=== PATIENT | female | born 1950 | race Hispanic/Latino ===

== ENCOUNTER 2019-11-12 16:18 | Inpatient (IN) | payer MEDICARE, OTHER ==
[~2019-11-12] VITALS: Ht 132.1 cm; Wt 81.6 kg
--- NOTE | 2019-11-12 17:44 | Emergency Department Note ---
History of Present Illnes History of Present Illness Chief Complaint: COVID PUI History of Present Illness This is a 69 year old female arrived to the ED with complaints of acute respi distress, pt complaining of shortness of breath. Chief Complaint Comment PATIENT SENT FROM [facility] ESPIRATORY DISTRESS SINCE YESTERDAY. PATIENT DISCHARGED FROM [facility] AND WAS NOT ANY BETTER OVER NIGHT. DOCTOR REQUESTED SHE BE SENT HERE. PATIENT NO ALERT, ONLY MOANS. BILATERAL ARM SWELLING. COARSE CRACKLES/RALES Historian: [employer]/[facility], Medical Record Arrival Mode: KASH MEDIC 1 Severity: mild Onset quality: gradual Duration (how long): day(s) Timing of current episode: constant Progression: worsening Relieving factors: none Exacerbating factors: none Past Medical/Family History Physician Review I have reviewed the patient's past medical and family history. Any updates have been documented here. Past Medical History Recent Fever: No Clinical Suspicion of Infectio: No New/Unexplained Change in Ment: No Past Medical History: Hypertension, Diabetes, CVA, Depression, GERD, Hyperlipedemia Other Medical History: DEMENTIA ALZHEIMER CONVULSIONS CONSTIPATION UTI'S ESOPHAGITIS PNEUMONIA METABOLIC ENCEPHALAPATHY EPILEPSY Other Surgery: PEG Physical Exam Related Data Allergies: Coded Allergies: No Known Allergies (Unverified , 11/12/19) Triage Vital Signs Vital Signs Date Time Temp Pulse Resp B/P (MAP) Pulse Ox O2 Delivery O2 Flow Rate FiO2 11/12/19 16:33 98.2 73 18 144/74 100 Nasal Cannula 2.0 Vital signs reviewed: Yes Physical Exam CONSTITUTIONAL Constitutional: Present ill appearing HENT HENT: Present normocephalic, Present atraumatic, Present oropharynx clear/moist, Present nose normal HENT L/R: Present left ext ear normal, Present right ext ear normal EYES Eyes: Reports PERRL, Reports conjunctivae normal NECK Neck: Present ROM normal PULMONARY Pulmonary: Present effort normal, Present breath sounds normal CARDIOVASCULAR Cardiovascular: Present regular rhythm, Present heart sounds normal, Present capillary refill normal, Present normal rate GASTROINTESTINAL Abdominal: Present soft, Present nontender, Present bowel sounds normal GENITOURINARY Genitourinary: Present exam deferred SKIN Skin: Present warm, Present dry MUSCULOSKELETAL Musculoskeletal: Present ROM normal NEUROLOGICAL Neurological: Present alert, Present no gross motor or sensory deficits PSYCHOLOGICAL Psychological: Present mood/affect normal, Present judgement normal Results Laboratory Lab results reviewed: Yes Imaging Imaging results reviewed: Yes Assessment & Plan Medical Decision Making MDM 69 yo F arrived to the ED in respiratory distress, lab work and imaging pending. Sign out given to Dr. Chris to follow up labs, imaging and dispo patient. Assessment & Plan Final Impression: (1) Acute respiratory distress Depart Disposition: ADMITTED Last Vital Signs Date Time Temp Pulse Resp B/P (MAP) Pulse Ox O2 Delivery O2 Flow Rate FiO2 11/12/19 16:33 98.2 73 18 144/74 100 Nasal Cannula 2.0 FRANKLIN JOHNSON, Nov 12, 2019 17:44
[2019-11-12 17:54] LABS: BASOPHILS % 0.3 % (0.0-1.0); EOSINOPHILS # (AUTO) 0.1 (0.0-0.4); EOSINOPHILS % 0.7 % (0.0-6.0); HEMATOCRIT 34.7 % (34.2-44.1); HEMOGLOBIN 10.4 g/dL (12.0-16.0); LYMPHOCYTES % 15.7 % (18.0-39.1); MEAN CORPUSCULAR HEMOGLOBIN 28.6 pg (28-32); MEAN CORPUSCULAR VOLUME 95.3 fL (81-99); MONOCYTES # (AUTO) 1.5 (0.2-0.8); MONOCYTES % 12.1 % (4.4-11.3); NEUTROPHILS # (AUTO) 8.8 (2.1-6.9); NEUTROPHILS % 69.6 % (38.7-80.0); PLATELET COUNT 309 x10e3/uL (140-360); RED BLOOD COUNT 3.64 x10e6/uL (3.6-5.1); RED CELL DISTRIBUTION WIDTH 17.5 % (11.7-14.4)
[2019-11-12] MEDS ORDERED: PIPER-TAZ 3.375 GM 50 ML IV SCH (18:00)
[2019-11-12 18:12] LABS: ALANINE AMINOTRANSFERASE 32 IU/L (0-55); ALBUMIN 2.9 g/dL (3.5-5.0); ALBUMIN/GLOBULIN RATIO 0.8 (0.8-2.0); ALKALINE PHOSPHATASE 88 IU/L (40-150); BLOOD UREA NITROGEN 14 mg/dL (7-26); BUN/CREATININE RATIO 21 (6-25); CALCIUM 8.9 mg/dL (8.4-10.2); CARBON DIOXIDE 29 mmol/L (22-29); CHLORIDE 104 mmol/L (98-107); CREATINE KINASE 69 IU/L (29-168); CREATININE, SERUM 0.66 mg/dL (0.57-1.11); EST GLOMERULAR FILTRATION RATE > 60 ML/MIN (60-); GLUCOSE 325 mg/dL (74-118); SODIUM 145 mmol/L (136-145)
--- NOTE | 2019-11-12 18:17 | Diagnostic Imaging Report ---
EXAMINATION: CHEST SINGLE (PORTABLE) INDICATION: respiratory distress COMPARISON: None FINDINGS: AP view TUBES and LINES: None. . LUNGS/PLEURA: Lungs are not well inflated. There is elevation of the right hemidiaphragm. There is bronchovascular crowding which could be exaggerated due to low lung volumes. There is no pleural effusion or pneumothorax. HEART AND MEDIASTINUM: The cardiomediastinal silhouette is unremarkable. BONES AND SOFT TISSUES: No acute osseous lesion. Soft tissues are unremarkable. UPPER ABDOMEN: No free air under the diaphragm. IMPRESSION: Lungs are poorly inflated. There is bronchovascular crowding which could be exaggerated due to low lung volumes. Recommend follow-up chest x-ray with adequate inspiration to exclude underlying pneumonia or pulmonary edema. Signed by: Leland Santana MD on 11/12/2019 6:13 PM
[2019-11-12 19:18] LABS: BILIRUBIN,URINE NEGATIVE (NEGATIVE); CLARITY,URINE SL CLOUDY (CLEAR); COLOR,URINE YELLOW (YELLOW); KETONES,URINE NEGATIVE (NEGATIVE); LEUKOCYTE ESTERASE ,URINE NEGATIVE (NEGATIVE); NITRITE,URINE NEGATIVE (NEGATIVE); PROTEIN,URINE DIPSTICK TRACE (NEGATIVE); URINE UROBILINOGEN 0.2 mg/dL (0.2 - 1)
[2019-11-12 19:27] LABS: BACTERIA,URINE MANY /HPF; EPITHELIAL CELLS,URINE FEW /LPF; RBC,URINE 0-5 /HPF (0-5); WBC,URINE (MAN) 0-5 /HPF (0-5)
[2019-11-12] MEDS ORDERED: ASPIRIN 81 MG CHEW TAB PO ONE (20:15)
--- OUTSIDE RECORDS SUMMARY | 2019-11-12 20:16 | XMS REPORT | Continuity of Care Document ---
Author Author [facility] t Organization [facility] Address [address] [place] [place] [address] Phone Unavailable Care Team Providers Care Stock Preparer Name Role Phone ADEN SABILLON Unavailable Payers Payer Name Policy Type Policy Number Effective Date Expiration Date S ource Problems This patient has no known problems. Allergies, Adverse Reactions, Alerts Allergy Name Allergy Type Status Severity Reaction(s) Onset Date Inacti ve Date Treating Clinician Comments Source No Known Allergies DA Active U 2016-09-14 00:00:00 [facility] Medications This patient has no known medications. Procedures This patient has no known procedures. Results Test Description Test Time Test Comments Results Result Comments Source CHEST SINGLE (PORTABLE) 2019-11-12 18:11:00 [facility] [address], [place] [address] Patient Name: AROLDO BERRIOS MR #: [id number] : 1950 Age/Sex: 69/F Req #: [id number] Adm Physician: Ordered by: FRANKLIN JOHNSON DO Report #: [id number] Location: ER Room/Bed: Procedure: [id number] DX/CHEST SINGLE (PORTABLE) Exam Date: 11/12/19 Exam Time: 1640 REPORT STATUS: Signed EXAMINATION: CHEST SINGLE (PORTABLE) INDICATION: respiratory distress COMPARISON: None FINDINGS: AP view TUBES and LINES: None. . LUNGS/PLEURA: Lungs are not well inflated. There is elevation of the right he midiaphragm. There is bronchovascular crowding which could be exaggerated due to low lung volumes. There is no pleural effusion or pneumothorax. HEART AND MEDIASTINUM: The cardiomediastinal silhouette is unremarkable. BONES AND SOFT TISSUES: No acute osseous lesion. Soft tissues are unremarkable. UPPER ABDOMEN: No free air under the diaphragm. IMPRESSION: Lungs are poorly inflated. There is bronchovascular crowding which could be exaggerated due to low lung volumes. Recommend follow-up chest x-ray with adequate inspiration to exclude underlying pneumonia or pulmonary edema. Signed by: Leland Langley MD on 11/12/2019 6:13 PM Dictated By: LELAND LANGLEY MD 12 Transcribed By: NASRIN on 11/12/191812 COPY TO: FRANKLIN JOHNSON DO GLUBED 2019-11-11 20:34:00 Test Item GLUBED (test code = GLUBED) 148 mg/dL 74-106 H Performed by certified oil refinery operator at [facility] [place] [id number] 19:02:00* Test Item Value Reference Range Interpretation Comments GLUBED (test code = GLUBED) 117 mg/dL 74-106 H Performed by certified oil refinery operator at [facility] [place] [id number] 12:50:00* Test Item Value Reference Range Interpretation Comments GLUBED (test code = GLUBED) 224 mg/dL 74-106 H Performed by certified oil refinery operator at [facility] [place] [id number] 05:14:00* Test Item Value Reference Range Interpretation Comments GLUBED (test code = GLUBED) 252 mg/dL 74-106 H Performed by certified oil refinery operator at [facility] [place] BASIC METABOLIC [id number] 04:57:00* Test Item Value Reference Range Interpretation Comments SODIUM (test code = NA) 146 mmol/L 136-145 H POTASSIUM (test code = K) 3.5 mmol/L 3.5-5.1 N CHLORIDE (test code = CL) 108.0 mmol/L 98-107 H CARBON DIOXIDE (test code = CO2) 32.0 mmol/L 21-32 N ANION GAP (test code = GAP) 9.5 10-20 L GLUCOSE (test code = GLU) 263 mg/dL 74-106 H BLOOD UREA NITROGEN (test code = BUN) 20 mg/dL 7-18 H GLOMERULAR FILTRATION RATE (test code = GFR) > 60 mL/min >=60 Estimated GFR by using Modified MDRD formula.Chronic kidney disease is defined as either kidney damageor GFR <60 mL/min/1.73 m2 for >3 months. CREATININE (test code = CREAT) 0.40 mg/dL 0.55-1.02 L Note change in reference range due to change in reagent. BUN/CREATININE RATIO (test code = BUN/CREA) 47.6 10-20 H CALCIUM (test code = CA) 8.6 mg/dL 8.5-10.1 N [id number] 04:57:00* Test Item Value Reference Range Interpretation Comments PHOSPHORUS (test code = PHOS) 2.5 mg/dL 2.5-4.9 N [id number] 04:57:00* Test Item Value Reference Range Interpretation Comments MAGNESIUM (test code = MAG) 2.2 mg/dL 1.8-2.4 N CALCIUM [id number] 04:57:00* Test Item Value Reference Range Interpretation Comments CALCIUM IONIZED (test code = AVTAR) 1.31 mmol/L 1.12-1.32 N [id number] 04:56:00* Test Item Value Reference Range Interpretation Comments PHOSPHORUS (test code = PHOS) mg/dL 2.5-4.9 [id number] 04:56:00* Test Item Value Reference Range Interpretation Comments MAGNESIUM (test code = MAG) mg/dL 1.8-2.4 CALCIUM [id number] 04:56:00* Test Item Value Reference Range Interpretation Comments CALCIUM IONIZED (test code = AVTAR) 1.31 mmol/L 1.12-1.32 N CBC W/O [id number] 04:24:00* Test Item Value Reference Range Interpretation Comments WHITE BLOOD CELL (test code = WBC) 10.4 K/mm3 4.5-12.5 N RED BLOOD CELL (test code = RBC) 3.26 mill/mm3 3.7-5.2 L HEMOGLOBIN (test code = HGB) 9.5 gram/dL 11.5-15.5 L HEMATOCRIT (test code = HCT) 31.9 % 36.0-46.0 L MEAN CELL VOLUME (test code = MCV) 97.9 fL 80-98 N MEAN CELL HGB (test code = MCH) 29.1 picogram 27.0-33.0 N MEAN CELL HGB CONCETRATION (test code = MCHC) 29.8 gram/dL 33.0-36. 0 L RED CELL DISTRIBUTION WIDTH (test code = RDW) 17.5 % 11.6-16. 2 H PLATELET COUNT (test code = PLT) 306 K/mm3 150-450 N MEAN PLATELET VOLUME (test code = MPV) 11.2 fL 6.7-11.0 H CBC W/O [id number] 04:22:00* Test Item Value Reference Range Interpretation Comments WHITE BLOOD CELL (test code = WBC) K/mm3 4.5-12.5 RED BLOOD CELL (test code = RBC) mill/mm3 3.7-5.2 HEMOGLOBIN (test code = HGB) gram/dL 11.5-15.5 HEMATOCRIT (test code = HCT) % 36.0-46.0 MEAN CELL VOLUME (test code = MCV) fL 80-98 MEAN CELL HGB (test code = MCH) picogram 27.0-33.0 MEAN CELL HGB CONCETRATION (test code = MCHC) gram/dL 33.0-36. 0 RED CELL DISTRIBUTION WIDTH (test code = RDW) % 11.6-16. 2 PLATELET COUNT (test code = PLT) 306 K/mm3 150-450 N MEAN PLATELET VOLUME (test code = MPV) fL 6.7-11.0 [id number] 23:20:00* Test Item Value Reference Range Interpretation Comments GLUBED (test code = GLUBED) 239 mg/dL 74-106 H Performed by certified oil refinery operator at [facility] [place] [id number] 23:12:00* Test Item Value Reference Range Interpretation Comments GLUBED (test code = GLUBED) 272 mg/dL 74-106 H Performed by certified oil refinery operator at [facility] [place] [id number] 17:08:00* Test Item Value Reference Range Interpretation Comments GLUBED (test code = GLUBED) 130 mg/dL 74-106 H Performed by certified oil refinery operator at [facility] [place] [id number] 10:58:00* Test Item Value Reference Range Interpretation Comments GLUBED (test code = GLUBED) 162 mg/dL 74-106 H Performed by certified oil refinery operator at [facility] [place] [id number] 07:44:00* Test Item Value Reference Range Interpretation Comments GLUBED (test code = GLUBED) 203 mg/dL 74-106 H Performed by certified oil refinery operator at [facility] [place] - XR CHEST 1 [id number] 07:10:00 FAX: Gabby Weiss NP [place]: B St: ADM FAX: Asmita Walsh MD FAX: Nelida Peck [phone] Name: AROLDO BERRIOS [facility] : 1950 Age/S: 69/F [address] [facility] Unit #: [id number] Loc: [address] [place] [address] Phys: Gabby Weiss RESUME WRITER Acct: [id number] Dis Date: Status: ADM IN ONE #: [phone] Exam Date: 11/10/2019 0120 FAX #: [phone] Reason: Acute Respiratory Failure EXAMS: CPT CODE: [id number] XR CHEST 1 V 85047 CLINICAL HISTO RY: Acute Respiratory Failure TECHNIQUE: AP chest x-ray COMPARISON: Previous day. IMPRESSION: Impr patricia aeration of the right lower lobe with slight worsening of the left lower lobe. Normal heart size. Thoracic aortic vascular calcification. I nterval removal of right central venous catheter. Shifting are as of atelectasis otherwise unchanged exam. LOCATION: [facility] at 0710 Reported and signed by: Isidro Fu M.D. CC: Gabby Weiss NP; Asmita Lew MD; Tamara Ness MD Technologist: Nissa Chakraborty [facility] crd Date/Time/By: 11/10/2019 (0710) : By: [email or web address] Orig Print D/T: S: 11/10/2019 (0778) PAGE 1 Signed Report CBC W/AUTO [id number] 06:36:00* Test Item Value Reference Range Interpretation Comments WHITE BLOOD CELL (test code = WBC) 13.2 K/mm3 4.5-12.5 H RED BLOOD CELL (test code = RBC) 3.63 mill/mm3 3.7-5.2 L HEMOGLOBIN (test code = HGB) 10.4 gram/dL 11.5-15.5 L HEMATOCRIT (test code = HCT) 36.8 % 36.0-46.0 N MEAN CELL VOLUME (test code = MCV) 101.4 fL 80-98 H MEAN CELL HGB (test code = MCH) 28.7 picogram 27.0-33.0 N MEAN CELL HGB CONCETRATION (test code = MCHC) 28.3 gram/dL 33.0-36. 0 L RED CELL DISTRIBUTION WIDTH (test code = RDW) 17.8 % 11.6-16. 2 H RED CELL DISTRIBUTION WIDTH SD (test code = RDW-SD) 65.5 fL 37 .0-51.0 H PLATELET COUNT (test code = PLT) 300 K/mm3 150-450 RESULT VERIFIED BY REPEAT ANALYSIS MEAN PLATELET VOLUME (test code = MPV) 10.5 fL 6.7-11.0 N NEUTROPHIL % (test code = NT%) 68.4 % 39.0-69.0 N IMMATURE GRANULOCYTE % (test code = IG%) 0.6 % 0.0-5.0 N LYMPHOCYTE % (test code = LY%) 18.7 % 25.0-55.0 L MONOCYTE % (test code = MO%) 10.4 % 0.0-10.0 H EOSINOPHIL % (test code = EO%) 1.4 % 0.0-5.0 N BASOPHIL % (test code = BA%) 0.5 % 0.0-1.0 N NUCLEATED RBC % (test code = NRBC%) 0.0 % 0-0 N NEUTROPHIL # (test code = NT#) 9.03 K/mm3 1.8-7.7 H IMMATURE GRANULOCYTE # (test code = IG#) 0.08 x10 3/uL 0-0.03 H LYMPHOCYTE # (test code = LY#) 2.47 K/mm3 1.0-5.0 N MONOCYTE # (test code = MO#) 1.38 K/mm3 0-0.8 H EOSINOPHIL # (test code = EO#) 0.19 K/mm3 0.0-0.5 N BASOPHIL # (test code = BA#) 0.07 K/mm3 0.0-0.2 N NUCLEATED RBC # (test code = NRBC#) 0.00 K/mm3 0.0-0.1 N MANUAL DIFF REQUIRED (test code = MDIFF) NO, ONLY SCAN NEEDED DIFFERENTIAL [id number] 06:36:00* Test Item Value Reference Range Interpretation Comments STAIN ACCEPTABILITY (test code = STN ACCEPTABLE) STAIN ACCEPTABLE HYPOCHROMIA (test code = HYPO) 1+ PLATELET ESTIMATE (test code = PLTEST) ADEQUATE PLATELET MORPHOLOGY (test code = PLTMORPH) NORMAL [id number] 06:16:00* Test Item Value Reference Range Interpretation Comments GLUBED (test code = GLUBED) 206 mg/dL 74-106 H Performed by certified oil refinery operator at [facility] [place] COMPREHENSIVE METABOLIC [id number] 05:57:00* Test Item Value Reference Range Interpretation Comments SODIUM (test code = NA) 150 mmol/L 136-145 H POTASSIUM (test code = K) 3.7 mmol/L 3.5-5.1 N CHLORIDE (test code = CL) 113.0 mmol/L 98-107 H CARBON DIOXIDE (test code = CO2) 31.0 mmol/L 21-32 N ANION GAP (test code = GAP) 9.7 10-20 L GLUCOSE (test code = GLU) 279 mg/dL 74-106 H BLOOD UREA NITROGEN (test code = BUN) 17 mg/dL 7-18 N GLOMERULAR FILTRATION RATE (test code = GFR) > 60 mL/min >=60 Estimated GFR by using Modified MDRD formula.Chronic kidney disease is defined as either kidney damageor GFR <60 mL/min/1.73 m2 for >3 months. CREATININE (test code = CREAT) 0.70 mg/dL 0.55-1.02 N Note change in reference range due to change in reagent. BUN/CREATININE RATIO (test code = BUN/CREA) 25.6 10-20 H TOTAL PROTEIN (test code = PROT) 5.7 gram/dL 6.4-8.2 L ALBUMIN (test code = ALB) 2.0 g/dL 3.4-5.0 L GLOBULIN (test code = GLOB) 3.7 gram/dL 2.7-4.2 N ALBUMIN/GLOBULIN RATIO (test code = A/G) 0.5 0.75-1.50 L CALCIUM (test code = CA) 8.7 mg/dL 8.5-10.1 N BILIRUBIN TOTAL (test code = BILT) 0.30 mg/dL 0.0-1.0 N SGOT/AST (test code = AST) 29 IUnit/L 15-37 N SGPT/ALT (test code = ALT) 29 IUnit/L 12-78 N ALKALINE PHOSPHATASE TOTAL (test code = ALKP) 98 IUnit/L 45-117 N Note change in reference range due to change in reagent. [id number] 05:57:00* Test Item Value Reference Range Interpretation Comments PHOSPHORUS (test code = PHOS) 2.7 mg/dL 2.5-4.9 N [id number] 05:57:00* Test Item Value Reference Range Interpretation Comments MAGNESIUM (test code = MAG) 2.4 mg/dL 1.8-2.4 N CALCIUM [id number] 05:57:00* Test Item Value Reference Range Interpretation Comments CALCIUM IONIZED (test code = AVTAR) 1.27 mmol/L 1.12-1.32 N COMPREHENSIVE METABOLIC [id number] 05:42:00* Test Item Value Reference Range Interpretation Comments SODIUM (test code = NA) 150 mmol/L 136-145 H POTASSIUM (test code = K) 3.7 mmol/L 3.5-5.1 N CHLORIDE (test code = CL) 113.0 mmol/L 98-107 H CARBON DIOXIDE (test code = CO2) mmol/L 21-32 ANION GAP (test code = GAP) 10-20 GLUCOSE (test code = GLU) mg/dL 74-106 BLOOD UREA NITROGEN (test code = BUN) mg/dL 7-18 GLOMERULAR FILTRATION RATE (test code = GFR) mL/min >=60 CREATININE (test code = CREAT) mg/dL 0.55-1.02 BUN/CREATININE RATIO (test code = BUN/CREA) 10-20 TOTAL PROTEIN (test code = PROT) gram/dL 6.4-8.2 ALBUMIN (test code = ALB) g/dL 3.4-5.0 GLOBULIN (test code = GLOB) gram/dL 2.7-4.2 ALBUMIN/GLOBULIN RATIO (test code = A/G) 0.75-1.50 CALCIUM (test code = CA) mg/dL 8.5-10.1 BILIRUBIN TOTAL (test code = BILT) mg/dL 0.0-1.0 SGOT/AST (test code = AST) IUnit/L 15-37 SGPT/ALT (test code = ALT) IUnit/L 12-78 ALKALINE PHOSPHATASE TOTAL (test code = ALKP) IUnit/L 45-117 [id number] 05:42:00* Test Item Value Reference Range Interpretation Comments PHOSPHORUS (test code = PHOS) mg/dL 2.5-4.9 [id number] 05:42:00* Test Item Value Reference Range Interpretation Comments MAGNESIUM (test code = MAG) mg/dL 1.8-2.4 CALCIUM [id number] 05:42:00* Test Item Value Reference Range Interpretation Comments CALCIUM IONIZED (test code = AVTAR) 1.27 mmol/L 1.12-1.32 N COMPREHENSIVE METABOLIC [id number] 05:36:00* Test Item Value Reference Range Interpretation Comments SODIUM (test code = NA) mmol/L 136-145 POTASSIUM (test code = K) mmol/L 3.5-5.1 CHLORIDE (test code = CL) mmol/L 98-107 CARBON DIOXIDE (test code = CO2) mmol/L 21-32 ANION GAP (test code = GAP) 10-20 GLUCOSE (test code = GLU) mg/dL 74-106 BLOOD UREA NITROGEN (test code = BUN) mg/dL 7-18 GLOMERULAR FILTRATION RATE (test code = GFR) mL/min >=60 CREATININE (test code = CREAT) mg/dL 0.55-1.02 BUN/CREATININE RATIO (test code = BUN/CREA) 10-20 TOTAL PROTEIN (test code = PROT) gram/dL 6.4-8.2 ALBUMIN (test code = ALB) g/dL 3.4-5.0 GLOBULIN (test code = GLOB) gram/dL 2.7-4.2 ALBUMIN/GLOBULIN RATIO (test code = A/G) 0.75-1.50 CALCIUM (test code = CA) mg/dL 8.5-10.1 BILIRUBIN TOTAL (test code = BILT) mg/dL 0.0-1.0 SGOT/AST (test code = AST) IUnit/L 15-37 SGPT/ALT (test code = ALT) IUnit/L 12-78 ALKALINE PHOSPHATASE TOTAL (test code = ALKP) IUnit/L 45-117 [id number] 05:36:00* Test Item Value Reference Range Interpretation Comments PHOSPHORUS (test code = PHOS) mg/dL 2.5-4.9 [id number] 05:36:00* Test Item Value Reference Range Interpretation Comments MAGNESIUM (test code = MAG) mg/dL 1.8-2.4 CALCIUM [id number] 05:36:00* Test Item Value Reference Range Interpretation Comments CALCIUM IONIZED (test code = AVTAR) 1.27 mmol/L 1.12-1.32 N CBC W/AUTO [id number] 05:01:00* Test Item Value Reference Range Interpretation Comments WHITE BLOOD CELL (test code = WBC) 13.2 K/mm3 4.5-12.5 H RED BLOOD CELL (test code = RBC) 3.63 mill/mm3 3.7-5.2 L HEMOGLOBIN (test code = HGB) 10.4 gram/dL 11.5-15.5 L HEMATOCRIT (test code = HCT) 36.8 % 36.0-46.0 N MEAN CELL VOLUME (test code = MCV) 101.4 fL 80-98 H MEAN CELL HGB (test code = MCH) 28.7 picogram 27.0-33.0 N MEAN CELL HGB CONCETRATION (test code = MCHC) 28.3 gram/dL 33.0-36. 0 L RED CELL DISTRIBUTION WIDTH (test code = RDW) 17.8 % 11.6-16. 2 H RED CELL DISTRIBUTION WIDTH SD (test code = RDW-SD) 65.5 fL 37 .0-51.0 H PLATELET COUNT (test code = PLT) 300 K/mm3 150-450 RESULT VERIFIED BY REPEAT ANALYSIS MEAN PLATELET VOLUME (test code = MPV) 10.5 fL 6.7-11.0 N NEUTROPHIL % (test code = NT%) 68.4 % 39.0-69.0 N IMMATURE GRANULOCYTE % (test code = IG%) 0.6 % 0.0-5.0 N LYMPHOCYTE % (test code = LY%) 18.7 % 25.0-55.0 L MONOCYTE % (test code = MO%) 10.4 % 0.0-10.0 H EOSINOPHIL % (test code = EO%) 1.4 % 0.0-5.0 N BASOPHIL % (test code = BA%) 0.5 % 0.0-1.0 N NUCLEATED RBC % (test code = NRBC%) 0.0 % 0-0 N NEUTROPHIL # (test code = NT#) 9.03 K/mm3 1.8-7.7 H IMMATURE GRANULOCYTE # (test code = IG#) 0.08 x10 3/uL 0-0.03 H LYMPHOCYTE # (test code = LY#) 2.47 K/mm3 1.0-5.0 N MONOCYTE # (test code = MO#) 1.38 K/mm3 0-0.8 H EOSINOPHIL # (test code = EO#) 0.19 K/mm3 0.0-0.5 N BASOPHIL # (test code = BA#) 0.07 K/mm3 0.0-0.2 N NUCLEATED RBC # (test code = NRBC#) 0.00 K/mm3 0.0-0.1 N MANUAL DIFF REQUIRED (test code = MDIFF) NO, ONLY SCAN NEEDED DIFFERENTIAL [id number] 05:01:00* Test Item Value Reference Range Interpretation Comments STAIN ACCEPTABILITY (test code = STN ACCEPTABLE) CABOT RINGS (test code = CAB) MORPHOLOGY COMMENT (test code = MOC) PLATELET ESTIMATE (test code = PLTEST) PLATELET MORPHOLOGY (test code = PLTMORPH) CBC W/AUTO [id number] 05:01:00* Test Item Value Reference Range Interpretation Comments WHITE BLOOD CELL (test code = WBC) 13.2 K/mm3 4.5-12.5 H RED BLOOD CELL (test code = RBC) 3.63 mill/mm3 3.7-5.2 L HEMOGLOBIN (test code = HGB) 10.4 gram/dL 11.5-15.5 L HEMATOCRIT (test code = HCT) 36.8 % 36.0-46.0 N MEAN CELL VOLUME (test code = MCV) 101.4 fL 80-98 H MEAN CELL HGB (test code = MCH) 28.7 picogram 27.0-33.0 N MEAN CELL HGB CONCETRATION (test code = MCHC) 28.3 gram/dL 33.0-36. 0 L RED CELL DISTRIBUTION WIDTH (test code = RDW) 17.8 % 11.6-16. 2 H RED CELL DISTRIBUTION WIDTH SD (test code = RDW-SD) 65.5 fL 37 .0-51.0 H PLATELET COUNT (test code = PLT) 300 K/mm3 150-450 RESULT VERIFIED BY REPEAT ANALYSIS MEAN PLATELET VOLUME (test code = MPV) 10.5 fL 6.7-11.0 N NEUTROPHIL % (test code = NT%) 68.4 % 39.0-69.0 N IMMATURE GRANULOCYTE % (test code = IG%) 0.6 % 0.0-5.0 N LYMPHOCYTE % (test code = LY%) 18.7 % 25.0-55.0 L MONOCYTE % (test code = MO%) 10.4 % 0.0-10.0 H EOSINOPHIL % (test code = EO%) 1.4 % 0.0-5.0 N BASOPHIL % (test code = BA%) 0.5 % 0.0-1.0 N NUCLEATED RBC % (test code = NRBC%) 0.0 % 0-0 N NEUTROPHIL # (test code = NT#) 9.03 K/mm3 1.8-7.7 H IMMATURE GRANULOCYTE # (test code = IG#) 0.08 x10 3/uL 0-0.03 H LYMPHOCYTE # (test code = LY#) 2.47 K/mm3 1.0-5.0 N MONOCYTE # (test code = MO#) 1.38 K/mm3 0-0.8 H EOSINOPHIL # (test code = EO#) 0.19 K/mm3 0.0-0.5 N BASOPHIL # (test code = BA#) 0.07 K/mm3 0.0-0.2 N NUCLEATED RBC # (test code = NRBC#) 0.00 K/mm3 0.0-0.1 N MANUAL DIFF REQUIRED (test code = MDIFF) NO, ONLY SCAN NEEDED DIFFERENTIAL [id number] 05:01:00* Test Item Value Reference Range Interpretation Comments STAIN ACCEPTABILITY (test code = STN ACCEPTABLE) CABOT RINGS (test code = CAB) MORPHOLOGY COMMENT (test code = MOC) PLATELET ESTIMATE (test code = PLTEST) PLATELET MORPHOLOGY (test code = PLTMORPH) CBC W/AUTO [id number] 05:01:00* Test Item Value Reference Range Interpretation Comments WHITE BLOOD CELL (test code = WBC) 13.2 K/mm3 4.5-12.5 H RED BLOOD CELL (test code = RBC) 3.63 mill/mm3 3.7-5.2 L HEMOGLOBIN (test code = HGB) 10.4 gram/dL 11.5-15.5 L HEMATOCRIT (test code = HCT) 36.8 % 36.0-46.0 N MEAN CELL VOLUME (test code = MCV) 101.4 fL 80-98 H MEAN CELL HGB (test code = MCH) 28.7 picogram 27.0-33.0 N MEAN CELL HGB CONCETRATION (test code = MCHC) 28.3 gram/dL 33.0-36. 0 L RED CELL DISTRIBUTION WIDTH (test code = RDW) 17.8 % 11.6-16. 2 H RED CELL DISTRIBUTION WIDTH SD (test code = RDW-SD) 65.5 fL 37 .0-51.0 H PLATELET COUNT (test code = PLT) 300 K/mm3 150-450 RESULT VERIFIED BY REPEAT ANALYSIS MEAN PLATELET VOLUME (test code = MPV) 10.5 fL 6.7-11.0 N NEUTROPHIL % (test code = NT%) 68.4 % 39.0-69.0 N IMMATURE GRANULOCYTE % (test code = IG%) 0.6 % 0.0-5.0 N LYMPHOCYTE % (test code = LY%) 18.7 % 25.0-55.0 L MONOCYTE % (test code = MO%) 10.4 % 0.0-10.0 H EOSINOPHIL % (test code = EO%) 1.4 % 0.0-5.0 N BASOPHIL % (test code = BA%) 0.5 % 0.0-1.0 N NUCLEATED RBC % (test code = NRBC%) 0.0 % 0-0 N NEUTROPHIL # (test code = NT#) 9.03 K/mm3 1.8-7.7 H IMMATURE GRANULOCYTE # (test code = IG#) 0.08 x10 3/uL 0-0.03 H LYMPHOCYTE # (test code = LY#) 2.47 K/mm3 1.0-5.0 N MONOCYTE # (test code = MO#) 1.38 K/mm3 0-0.8 H EOSINOPHIL # (test code = EO#) 0.19 K/mm3 0.0-0.5 N BASOPHIL # (test code = BA#) 0.07 K/mm3 0.0-0.2 N NUCLEATED RBC # (test code = NRBC#) 0.00 K/mm3 0.0-0.1 N MANUAL DIFF REQUIRED (test code = MDIFF) NO, ONLY SCAN NEEDED DIFFERENTIAL [id number] 05:01:00* Test Item Value Reference Range Interpretation Comments STAIN ACCEPTABILITY (test code = STN ACCEPTABLE) MORPHOLOGY COMMENT (test code = MOC) PLATELET ESTIMATE (test code = PLTEST) PLATELET MORPHOLOGY (test code = PLTMORPH) CBC W/AUTO [id number] 05:01:00* Test Item Value Reference Range Interpretation Comments WHITE BLOOD CELL (test code = WBC) 13.2 K/mm3 4.5-12.5 H RED BLOOD CELL (test code = RBC) 3.63 mill/mm3 3.7-5.2 L HEMOGLOBIN (test code = HGB) 10.4 gram/dL 11.5-15.5 L HEMATOCRIT (test code = HCT) 36.8 % 36.0-46.0 N MEAN CELL VOLUME (test code = MCV) 101.4 fL 80-98 H MEAN CELL HGB (test code = MCH) 28.7 picogram 27.0-33.0 N MEAN CELL HGB CONCETRATION (test code = MCHC) 28.3 gram/dL 33.0-36. 0 L RED CELL DISTRIBUTION WIDTH (test code = RDW) 17.8 % 11.6-16. 2 H RED CELL DISTRIBUTION WIDTH SD (test code = RDW-SD) 65.5 fL 37 .0-51.0 H PLATELET COUNT (test code = PLT) 300 K/mm3 150-450 RESULT VERIFIED BY REPEAT ANALYSIS MEAN PLATELET VOLUME (test code = MPV) 10.5 fL 6.7-11.0 N NEUTROPHIL % (test code = NT%) 68.4 % 39.0-69.0 N IMMATURE GRANULOCYTE % (test code = IG%) 0.6 % 0.0-5.0 N LYMPHOCYTE % (test code = LY%) 18.7 % 25.0-55.0 L MONOCYTE % (test code = MO%) 10.4 % 0.0-10.0 H EOSINOPHIL % (test code = EO%) 1.4 % 0.0-5.0 N BASOPHIL % (test code = BA%) 0.5 % 0.0-1.0 N NUCLEATED RBC % (test code = NRBC%) 0.0 % 0-0 N NEUTROPHIL # (test code = NT#) 9.03 K/mm3 1.8-7.7 H IMMATURE GRANULOCYTE # (test code = IG#) 0.08 x10 3/uL 0-0.03 H LYMPHOCYTE # (test code = LY#) 2.47 K/mm3 1.0-5.0 N MONOCYTE # (test code = MO#) 1.38 K/mm3 0-0.8 H EOSINOPHIL # (test code = EO#) 0.19 K/mm3 0.0-0.5 N BASOPHIL # (test code = BA#) 0.07 K/mm3 0.0-0.2 N NUCLEATED RBC # (test code = NRBC#) 0.00 K/mm3 0.0-0.1 N MANUAL DIFF REQUIRED (test code = MDIFF) NO, ONLY SCAN NEEDED DIFFERENTIAL [id number] 05:01:00* Test Item Value Reference Range Interpretation Comments STAIN ACCEPTABILITY (test code = STN ACCEPTABLE) CABOT RINGS (test code = CAB) MORPHOLOGY COMMENT (test code = MOC) PLATELET ESTIMATE (test code = PLTEST) PLATELET MORPHOLOGY (test code = PLTMORPH) [id number] 17:41:00* Test Item Value Reference Range Interpretation Comments GLUBED (test code = GLUBED) 181 mg/dL 74-106 H Performed by certified oil refinery operator at [facility] [place] [id number] 11:59:00* Test Item Value Reference Range Interpretation Comments GLUBED (test code = GLUBED) 109 mg/dL 74-106 H Performed by certified oil refinery operator at [facility] [place] - XR CHEST 1 [id number] 07:09:00 FAX: Gabby Weiss NP [place]: St: ADM FAX: Asmita Walsh MD FAX: Nelida Peck [phone] Name: AROLDO BERRIOS [facility] : 1950 Age/S: 69/F [address] [facility] Unit #: [id number] Loc: [address] [place] [address] Phys: Gabby Weiss NP Acct: [id number] Dis Date: Status: ADM IN ONE #: [phone] Exam Date: 11/09/2019 0120 FAX #: [phone] Reason: Acute Respiratory Failure EXAMS: CPT CODE: [id number] XR CHEST 1 V 55497 CLINICAL HISTO RY: Acute Respiratory Failure TECHNIQUE: AP chest x-ray COMPARISON: Previous day. IMPRESSION: Impr patricia aeration of the bibasilar patchy airspace opacities/atelectasis. No rmal heart size. Thoracic aortic vascular calcification. Right central v enous catheter. LOCATION: [facility] [place] at 0709 Reported and signed by: Isidro Fu M.D. CC: Gabby Weiss NP; Asmita Lew MD; Nelida Ness MD Technologi st: Nissa Chakraborty Trnnd[address] Date/Time/By: 11/09/2019 (0709) : By: [email or web address] Orig Print D/T: S: 11/09/2019 (7232) PAGE 1 Signed Report COMPREHENSIVE METABOLIC [id number] 04:19:00* Test Item Value Reference Range Interpretation Comments SODIUM (test code = NA) 154 mmol/L 136-145 H POTASSIUM (test code = K) 3.5 mmol/L 3.5-5.1 N CHLORIDE (test code = CL) 117.0 mmol/L 98-107 H CARBON DIOXIDE (test code = CO2) 30.0 mmol/L 21-32 N ANION GAP (test code = GAP) 10.5 10-20 N GLUCOSE (test code = GLU) 271 mg/dL 74-106 H BLOOD UREA NITROGEN (test code = BUN) 19 mg/dL 7-18 H GLOMERULAR FILTRATION RATE (test code = GFR) > 60 mL/min >=60 Estimated GFR by using Modified MDRD formula.Chronic kidney disease is defined as either kidney damageor GFR <60 mL/min/1.73 m2 for >3 months. CREATININE (test code = CREAT) 0.60 mg/dL 0.55-1.02 N Note change in reference range due to change in reagent. BUN/CREATININE RATIO (test code = BUN/CREA) 30.5 10-20 H TOTAL PROTEIN (test code = PROT) 6.6 gram/dL 6.4-8.2 N ALBUMIN (test code = ALB) 1.8 g/dL 3.4-5.0 L GLOBULIN (test code = GLOB) 4.8 gram/dL 2.7-4.2 H ALBUMIN/GLOBULIN RATIO (test code = A/G) 0.4 0.75-1.50 L CALCIUM (test code = CA) 9.0 mg/dL 8.5-10.1 N BILIRUBIN TOTAL (test code = BILT) 0.40 mg/dL 0.0-1.0 N SGOT/AST (test code = AST) 19 IUnit/L 15-37 N SGPT/ALT (test code = ALT) 35 IUnit/L 12-78 N ALKALINE PHOSPHATASE TOTAL (test code = ALKP) 84 IUnit/L 45-117 N Note change in reference range due to change in reagent. [id number] 04:19:00* Test Item Value Reference Range Interpretation Comments PHOSPHORUS (test code = PHOS) 2.4 mg/dL 2.5-4.9 L [id number] 04:19:00* Test Item Value Reference Range Interpretation Comments MAGNESIUM (test code = MAG) 2.4 mg/dL 1.8-2.4 N CALCIUM [id number] 04:19:00* Test Item Value Reference Range Interpretation Comments CALCIUM IONIZED (test code = AVTAR) 1.32 mmol/L 1.12-1.32 N CBC W/AUTO [id number] 03:32:00* Test Item Value Reference Range Interpretation Comments WHITE BLOOD CELL (test code = WBC) 12.7 K/mm3 4.5-12.5 H RED BLOOD CELL (test code = RBC) 3.45 mill/mm3 3.7-5.2 L HEMOGLOBIN (test code = HGB) 9.9 gram/dL 11.5-15.5 L HEMATOCRIT (test code = HCT) 34.0 % 36.0-46.0 L MEAN CELL VOLUME (test code = MCV) 98.6 fL 80-98 H MEAN CELL HGB (test code = MCH) 28.7 picogram 27.0-33.0 N MEAN CELL HGB CONCETRATION (test code = MCHC) 29.1 gram/dL 33.0-36. 0 L RED CELL DISTRIBUTION WIDTH (test code = RDW) 17.8 % 11.6-16. 2 H RED CELL DISTRIBUTION WIDTH SD (test code = RDW-SD) 63.9 fL 37 .0-51.0 H PLATELET COUNT (test code = PLT) 416 K/mm3 150-450 N MEAN PLATELET VOLUME (test code = MPV) 11.0 fL 6.7-11.0 N NEUTROPHIL % (test code = NT%) 78.7 % 39.0-69.0 H IMMATURE GRANULOCYTE % (test code = IG%) 0.6 % 0.0-5.0 N LYMPHOCYTE % (test code = LY%) 12.1 % 25.0-55.0 L MONOCYTE % (test code = MO%) 8.0 % 0.0-10.0 N EOSINOPHIL % (test code = EO%) 0.1 % 0.0-5.0 N BASOPHIL % (test code = BA%) 0.5 % 0.0-1.0 N NUCLEATED RBC % (test code = NRBC%) 0.0 % 0-0 N NEUTROPHIL # (test code = NT#) 10.00 K/mm3 1.8-7.7 H IMMATURE GRANULOCYTE # (test code = IG#) 0.07 x10 3/uL 0-0.03 H LYMPHOCYTE # (test code = LY#) 1.53 K/mm3 1.0-5.0 N MONOCYTE # (test code = MO#) 1.01 K/mm3 0-0.8 H EOSINOPHIL # (test code = EO#) 0.01 K/mm3 0.0-0.5 N BASOPHIL # (test code = BA#) 0.06 K/mm3 0.0-0.2 N NUCLEATED RBC # (test code = NRBC#) 0.00 K/mm3 0.0-0.1 N MANUAL DIFF REQUIRED (test code = MDIFF) NO, ONLY SCAN NEEDED DIFFERENTIAL [id number] 03:32:00* Test Item Value Reference Range Interpretation Comments STAIN ACCEPTABILITY (test code = STN ACCEPTABLE) STAIN ACCEPTABLE POLYCHROMASIA (test code = POLC) 1+ ANISOCYTOSIS (test code = ANISO) 1+ MORPHOLOGY COMMENT (test code = MOC) TEST NOT PERFORMED PLATELET ESTIMATE (test code = PLTEST) ADEQUATE PLATELET MORPHOLOGY (test code = PLTMORPH) NORMAL COMPREHENSIVE METABOLIC [id number] 03:25:00* Test Item Value Reference Range Interpretation Comments SODIUM (test code = NA) 154 mmol/L 136-145 H POTASSIUM (test code = K) 3.5 mmol/L 3.5-5.1 N CHLORIDE (test code = CL) 117.0 mmol/L 98-107 H CARBON DIOXIDE (test code = CO2) 30.0 mmol/L 21-32 N ANION GAP (test code = GAP) 10.5 10-20 N GLUCOSE (test code = GLU) 271 mg/dL 74-106 H BLOOD UREA NITROGEN (test code = BUN) 19 mg/dL 7-18 H GLOMERULAR FILTRATION RATE (test code = GFR) > 60 mL/min >=60 Estimated GFR by using Modified MDRD formula.Chronic kidney disease is defined as either kidney damageor GFR <60 mL/min/1.73 m2 for >3 months. CREATININE (test code = CREAT) 0.60 mg/dL 0.55-1.02 N Note change in reference range due to change in reagent. BUN/CREATININE RATIO (test code = BUN/CREA) 30.5 10-20 H TOTAL PROTEIN (test code = PROT) 6.6 gram/dL 6.4-8.2 N ALBUMIN (test code = ALB) 1.8 g/dL 3.4-5.0 L GLOBULIN (test code = GLOB) 4.8 gram/dL 2.7-4.2 H ALBUMIN/GLOBULIN RATIO (test code = A/G) 0.4 0.75-1.50 L CALCIUM (test code = CA) 9.0 mg/dL 8.5-10.1 N BILIRUBIN TOTAL (test code = BILT) 0.40 mg/dL 0.0-1.0 N SGOT/AST (test code = AST) 19 IUnit/L 15-37 N SGPT/ALT (test code = ALT) 35 IUnit/L 12-78 N ALKALINE PHOSPHATASE TOTAL (test code = ALKP) 84 IUnit/L 45-117 N Note change in reference range due to change in reagent. [id number] 03:25:00* Test Item Value Reference Range Interpretation Comments PHOSPHORUS (test code = PHOS) 2.4 mg/dL 2.5-4.9 L [id number] 03:25:00* Test Item Value Reference Range Interpretation Comments MAGNESIUM (test code = MAG) 2.4 mg/dL 1.8-2.4 N CALCIUM [id number] 03:25:00* Test Item Value Reference Range Interpretation Comments CALCIUM IONIZED (test code = AVTAR) mmol/L 1.12-1.32 CBC W/AUTO [id number] 03:01:00* Test Item Value Reference Range Interpretation Comments WHITE BLOOD CELL (test code = WBC) 12.7 K/mm3 4.5-12.5 H RED BLOOD CELL (test code = RBC) 3.45 mill/mm3 3.7-5.2 L HEMOGLOBIN (test code = HGB) 9.9 gram/dL 11.5-15.5 L HEMATOCRIT (test code = HCT) 34.0 % 36.0-46.0 L MEAN CELL VOLUME (test code = MCV) 98.6 fL 80-98 H MEAN CELL HGB (test code = MCH) 28.7 picogram 27.0-33.0 N MEAN CELL HGB CONCETRATION (test code = MCHC) 29.1 gram/dL 33.0-36. 0 L RED CELL DISTRIBUTION WIDTH (test code = RDW) 17.8 % 11.6-16. 2 H RED CELL DISTRIBUTION WIDTH SD (test code = RDW-SD) 63.9 fL 37 .0-51.0 H PLATELET COUNT (test code = PLT) 416 K/mm3 150-450 N MEAN PLATELET VOLUME (test code = MPV) 11.0 fL 6.7-11.0 N NEUTROPHIL % (test code = NT%) 78.7 % 39.0-69.0 H IMMATURE GRANULOCYTE % (test code = IG%) 0.6 % 0.0-5.0 N LYMPHOCYTE % (test code = LY%) 12.1 % 25.0-55.0 L MONOCYTE % (test code = MO%) 8.0 % 0.0-10.0 N EOSINOPHIL % (test code = EO%) 0.1 % 0.0-5.0 N BASOPHIL % (test code = BA%) 0.5 % 0.0-1.0 N NUCLEATED RBC % (test code = NRBC%) 0.0 % 0-0 N NEUTROPHIL # (test code = NT#) 10.00 K/mm3 1.8-7.7 H IMMATURE GRANULOCYTE # (test code = IG#) 0.07 x10 3/uL 0-0.03 H LYMPHOCYTE # (test code = LY#) 1.53 K/mm3 1.0-5.0 N MONOCYTE # (test code = MO#) 1.01 K/mm3 0-0.8 H EOSINOPHIL # (test code = EO#) 0.01 K/mm3 0.0-0.5 N BASOPHIL # (test code = BA#) 0.06 K/mm3 0.0-0.2 N NUCLEATED RBC # (test code = NRBC#) 0.00 K/mm3 0.0-0.1 N MANUAL DIFF REQUIRED (test code = MDIFF) NO, ONLY SCAN NEEDED DIFFERENTIAL [id number] 03:01:00* Test Item Value Reference Range Interpretation Comments STAIN ACCEPTABILITY (test code = STN ACCEPTABLE) CABOT RINGS (test code = CAB) MORPHOLOGY COMMENT (test code = MOC) PLATELET ESTIMATE (test code = PLTEST) PLATELET MORPHOLOGY (test code = PLTMORPH) CBC W/AUTO [id number] 03:01:00* Test Item Value Reference Range Interpretation Comments WHITE BLOOD CELL (test code = WBC) 12.7 K/mm3 4.5-12.5 H RED BLOOD CELL (test code = RBC) 3.45 mill/mm3 3.7-5.2 L HEMOGLOBIN (test code = HGB) 9.9 gram/dL 11.5-15.5 L HEMATOCRIT (test code = HCT) 34.0 % 36.0-46.0 L MEAN CELL VOLUME (test code = MCV) 98.6 fL 80-98 H MEAN CELL HGB (test code = MCH) 28.7 picogram 27.0-33.0 N MEAN CELL HGB CONCETRATION (test code = MCHC) 29.1 gram/dL 33.0-36. 0 L RED CELL DISTRIBUTION WIDTH (test code = RDW) 17.8 % 11.6-16. 2 H RED CELL DISTRIBUTION WIDTH SD (test code = RDW-SD) 63.9 fL 37 .0-51.0 H PLATELET COUNT (test code = PLT) 416 K/mm3 150-450 N MEAN PLATELET VOLUME (test code = MPV) 11.0 fL 6.7-11.0 N NEUTROPHIL % (test code = NT%) 78.7 % 39.0-69.0 H IMMATURE GRANULOCYTE % (test code = IG%) 0.6 % 0.0-5.0 N LYMPHOCYTE % (test code = LY%) 12.1 % 25.0-55.0 L MONOCYTE % (test code = MO%) 8.0 % 0.0-10.0 N EOSINOPHIL % (test code = EO%) 0.1 % 0.0-5.0 N BASOPHIL % (test code = BA%) 0.5 % 0.0-1.0 N NUCLEATED RBC % (test code = NRBC%) 0.0 % 0-0 N NEUTROPHIL # (test code = NT#) 10.00 K/mm3 1.8-7.7 H IMMATURE GRANULOCYTE # (test code = IG#) 0.07 x10 3/uL 0-0.03 H LYMPHOCYTE # (test code = LY#) 1.53 K/mm3 1.0-5.0 N MONOCYTE # (test code = MO#) 1.01 K/mm3 0-0.8 H EOSINOPHIL # (test code = EO#) 0.01 K/mm3 0.0-0.5 N BASOPHIL # (test code = BA#) 0.06 K/mm3 0.0-0.2 N NUCLEATED RBC # (test code = NRBC#) 0.00 K/mm3 0.0-0.1 N MANUAL DIFF REQUIRED (test code = MDIFF) NO, ONLY SCAN NEEDED DIFFERENTIAL [id number] 03:01:00* Test Item Value Reference Range Interpretation Comments STAIN ACCEPTABILITY (test code = STN ACCEPTABLE) CABOT RINGS (test code = CAB) MORPHOLOGY COMMENT (test code = MOC) PLATELET ESTIMATE (test code = PLTEST) PLATELET MORPHOLOGY (test code = PLTMORPH) CBC W/AUTO [id number] 03:01:00* Test Item Value Reference Range Interpretation Comments WHITE BLOOD CELL (test code = WBC) 12.7 K/mm3 4.5-12.5 H RED BLOOD CELL (test code = RBC) 3.45 mill/mm3 3.7-5.2 L HEMOGLOBIN (test code = HGB) 9.9 gram/dL 11.5-15.5 L HEMATOCRIT (test code = HCT) 34.0 % 36.0-46.0 L MEAN CELL VOLUME (test code = MCV) 98.6 fL 80-98 H MEAN CELL HGB (test code = MCH) 28.7 picogram 27.0-33.0 N MEAN CELL HGB CONCETRATION (test code = MCHC) 29.1 gram/dL 33.0-36. 0 L RED CELL DISTRIBUTION WIDTH (test code = RDW) 17.8 % 11.6-16. 2 H RED CELL DISTRIBUTION WIDTH SD (test code = RDW-SD) 63.9 fL 37 .0-51.0 H PLATELET COUNT (test code = PLT) 416 K/mm3 150-450 N MEAN PLATELET VOLUME (test code = MPV) 11.0 fL 6.7-11.0 N NEUTROPHIL % (test code = NT%) 78.7 % 39.0-69.0 H IMMATURE GRANULOCYTE % (test code = IG%) 0.6 % 0.0-5.0 N LYMPHOCYTE % (test code = LY%) 12.1 % 25.0-55.0 L MONOCYTE % (test code = MO%) 8.0 % 0.0-10.0 N EOSINOPHIL % (test code = EO%) 0.1 % 0.0-5.0 N BASOPHIL % (test code = BA%) 0.5 % 0.0-1.0 N NUCLEATED RBC % (test code = NRBC%) 0.0 % 0-0 N NEUTROPHIL # (test code = NT#) 10.00 K/mm3 1.8-7.7 H IMMATURE GRANULOCYTE # (test code = IG#) 0.07 x10 3/uL 0-0.03 H LYMPHOCYTE # (test code = LY#) 1.53 K/mm3 1.0-5.0 N MONOCYTE # (test code = MO#) 1.01 K/mm3 0-0.8 H EOSINOPHIL # (test code = EO#) 0.01 K/mm3 0.0-0.5 N BASOPHIL # (test code = BA#) 0.06 K/mm3 0.0-0.2 N NUCLEATED RBC # (test code = NRBC#) 0.00 K/mm3 0.0-0.1 N MANUAL DIFF REQUIRED (test code = MDIFF) NO, ONLY SCAN NEEDED DIFFERENTIAL [id number] 03:01:00* Test Item Value Reference Range Interpretation Comments STAIN ACCEPTABILITY (test code = STN ACCEPTABLE) MORPHOLOGY COMMENT (test code = MOC) PLATELET ESTIMATE (test code = PLTEST) PLATELET MORPHOLOGY (test code = PLTMORPH) CBC W/AUTO [id number] 03:01:00* Test Item Value Reference Range Interpretation Comments WHITE BLOOD CELL (test code = WBC) 12.7 K/mm3 4.5-12.5 H RED BLOOD CELL (test code = RBC) 3.45 mill/mm3 3.7-5.2 L HEMOGLOBIN (test code = HGB) 9.9 gram/dL 11.5-15.5 L HEMATOCRIT (test code = HCT) 34.0 % 36.0-46.0 L MEAN CELL VOLUME (test code = MCV) 98.6 fL 80-98 H MEAN CELL HGB (test code = MCH) 28.7 picogram 27.0-33.0 N MEAN CELL HGB CONCETRATION (test code = MCHC) 29.1 gram/dL 33.0-36. 0 L RED CELL DISTRIBUTION WIDTH (test code = RDW) 17.8 % 11.6-16. 2 H RED CELL DISTRIBUTION WIDTH SD (test code = RDW-SD) 63.9 fL 37 .0-51.0 H PLATELET COUNT (test code = PLT) 416 K/mm3 150-450 N MEAN PLATELET VOLUME (test code = MPV) 11.0 fL 6.7-11.0 N NEUTROPHIL % (test code = NT%) 78.7 % 39.0-69.0 H IMMATURE GRANULOCYTE % (test code = IG%) 0.6 % 0.0-5.0 N LYMPHOCYTE % (test code = LY%) 12.1 % 25.0-55.0 L MONOCYTE % (test code = MO%) 8.0 % 0.0-10.0 N EOSINOPHIL % (test code = EO%) 0.1 % 0.0-5.0 N BASOPHIL % (test code = BA%) 0.5 % 0.0-1.0 N NUCLEATED RBC % (test code = NRBC%) 0.0 % 0-0 N NEUTROPHIL # (test code = NT#) 10.00 K/mm3 1.8-7.7 H IMMATURE GRANULOCYTE # (test code = IG#) 0.07 x10 3/uL 0-0.03 H LYMPHOCYTE # (test code = LY#) 1.53 K/mm3 1.0-5.0 N MONOCYTE # (test code = MO#) 1.01 K/mm3 0-0.8 H EOSINOPHIL # (test code = EO#) 0.01 K/mm3 0.0-0.5 N BASOPHIL # (test code = BA#) 0.06 K/mm3 0.0-0.2 N NUCLEATED RBC # (test code = NRBC#) 0.00 K/mm3 0.0-0.1 N MANUAL DIFF REQUIRED (test code = MDIFF) NO, ONLY SCAN NEEDED DIFFERENTIAL [id number] 03:01:00* Test Item Value Reference Range Interpretation Comments STAIN ACCEPTABILITY (test code = STN ACCEPTABLE) CABOT RINGS (test code = CAB) MORPHOLOGY COMMENT (test code = MOC) PLATELET ESTIMATE (test code = PLTEST) PLATELET MORPHOLOGY (test code = PLTMORPH) CBC W/AUTO [id number] 02:58:00* Test Item Value Reference Range Interpretation Comments WHITE BLOOD CELL (test code = WBC) K/mm3 4.5-12.5 RED BLOOD CELL (test code = RBC) mill/mm3 3.7-5.2 HEMOGLOBIN (test code = HGB) gram/dL 11.5-15.5 HEMATOCRIT (test code = HCT) % 36.0-46.0 MEAN CELL VOLUME (test code = MCV) fL 80-98 MEAN CELL HGB (test code = MCH) picogram 27.0-33.0 MEAN CELL HGB CONCETRATION (test code = MCHC) gram/dL 33.0-36. 0 RED CELL DISTRIBUTION WIDTH (test code = RDW) % 11.6-16. 2 RED CELL DISTRIBUTION WIDTH SD (test code = RDW-SD) fL 37 .0-51.0 PLATELET COUNT (test code = PLT) 416 K/mm3 150-450 N MEAN PLATELET VOLUME (test code = MPV) fL 6.7-11.0 NEUTROPHIL % (test code = NT%) % 39.0-69.0 IMMATURE GRANULOCYTE % (test code = IG%) % 0.0-5.0 LYMPHOCYTE % (test code = LY%) % 25.0-55.0 MONOCYTE % (test code = MO%) % 0.0-10.0 EOSINOPHIL % (test code = EO%) % 0.0-5.0 BASOPHIL % (test code = BA%) % 0.0-1.0 NEUTROPHIL # (test code = NT#) K/mm3 1.8-7.7 LYMPHOCYTE # (test code = LY#) K/mm3 1.0-5.0 MONOCYTE # (test code = MO#) K/mm3 0-0.8 EOSINOPHIL # (test code = EO#) K/mm3 0.0-0.5 BASOPHIL # (test code = BA#) K/mm3 0.0-0.2 [id number] 01:34:00* Test Item Value Reference Range Interpretation Comments GLUBED (test code = GLUBED) 253 mg/dL 74-106 H Performed by certified oil refinery operator at [facility] [place] [id number] 17:16:00* Test Item Value Reference Range Interpretation Comments GLUBED (test code = GLUBED) 246 mg/dL 74-106 H Performed by certified oil refinery operator at [facility] [place] [id number] 12:36:00* Test Item Value Reference Range Interpretation Comments GLUBED (test code = GLUBED) 195 mg/dL 74-106 H Performed by certified oil refinery operator at [facility] [place] [id number] 08:43:00* Test Item Value Reference Range Interpretation Comments GLUBED (test code = GLUBED) 212 mg/dL 74-106 H Performed by certified oil refinery operator at [facility] [place] [id number] 08:07:00* Test Item Value Reference Range Interpretation Comments GLUBED (test code = GLUBED) 222 mg/dL 74-106 H Performed by certified oil refinery operator at [facility] [place] - XR CHEST 1 [id number] 07:20:00 FAX: Gabby Weiss NP [place]: B St: ADM FAX: Asmita Walsh MD FAX: Nelida Peck [phone] Name: AROLDO BERRIOS [facility] : 1950 Age/S: 69/F [address] [facility] Unit #: [id number] Loc: V[address] [place] [address] Phys: Gabby Weiss NP Acct: [id number] Dis Date: Status: ADM IN PH ONE #: [phone] Exam Date: 11/08/2019309 FAX #: [phone] Reason: Acute Respiratory Failure EXAMS: CPT CODE: [id number] XR CHEST 1 V 01069 CLINICAL HISTO RY: Acute Respiratory Failure TECHNIQUE: AP chest x-ray COMPARISON: Previous day. IMPRESSION: Incr easing right basilar atelectasis with elevation of the hemidiaphragm. Pa tchy left basilar airspace opacity/atelectasis. Normal heart size. Thora cic aortic vascular calcification. Right central venous catheter. LOCATION: LP Electronical ly Signed by Kitty Patel D.O. on 11/08/2019 at 0720 Report ed and signed by: Kitty Patel D.O. CC: Gabby Weiss NP; Kyree Lew MD; Nelida Ness MD Technologist: Elijah Escalona RT(R); VALENTINA FRANCIS RT(R) Trnscrd Date/Time/By: 11/08/2019 (42) : By: [email or web address] Orig Print D/T: S: 11/08/2019 (3892) PAGE 1 Signed Report [id number] 04:25:00* Test Item Value Reference Range Interpretation Comments VANCOMYCIN (test code = VANCO) 16.9 UG/ML 5.0-45.0 N CBC W/AUTO [id number] 04:13:00* Test Item Value Reference Range Interpretation Comments WHITE BLOOD CELL (test code = WBC) 11.8 K/mm3 4.5-12.5 N RED BLOOD CELL (test code = RBC) 3.23 mill/mm3 3.7-5.2 L HEMOGLOBIN (test code = HGB) 9.3 gram/dL 11.5-15.5 L HEMATOCRIT (test code = HCT) 31.5 % 36.0-46.0 L MEAN CELL VOLUME (test code = MCV) 97.5 fL 80-98 N MEAN CELL HGB (test code = MCH) 28.8 picogram 27.0-33.0 N MEAN CELL HGB CONCETRATION (test code = MCHC) 29.5 gram/dL 33.0-36. 0 L RED CELL DISTRIBUTION WIDTH (test code = RDW) 17.7 % 11.6-16. 2 H RED CELL DISTRIBUTION WIDTH SD (test code = RDW-SD) 62.1 fL 37 .0-51.0 H PLATELET COUNT (test code = PLT) 402 K/mm3 150-450 N MEAN PLATELET VOLUME (test code = MPV) 10.6 fL 6.7-11.0 N NEUTROPHIL % (test code = NT%) 70.5 % 39.0-69.0 H IMMATURE GRANULOCYTE % (test code = IG%) 0.5 % 0.0-5.0 N LYMPHOCYTE % (test code = LY%) 17.3 % 25.0-55.0 L MONOCYTE % (test code = MO%) 11.1 % 0.0-10.0 H EOSINOPHIL % (test code = EO%) 0.2 % 0.0-5.0 N BASOPHIL % (test code = BA%) 0.4 % 0.0-1.0 N NUCLEATED RBC % (test code = NRBC%) 0.0 % 0-0 N NEUTROPHIL # (test code = NT#) 8.35 K/mm3 1.8-7.7 H IMMATURE GRANULOCYTE # (test code = IG#) 0.06 x10 3/uL 0-0.03 H LYMPHOCYTE # (test code = LY#) 2.05 K/mm3 1.0-5.0 N MONOCYTE # (test code = MO#) 1.31 K/mm3 0-0.8 H EOSINOPHIL # (test code = EO#) 0.02 K/mm3 0.0-0.5 N BASOPHIL # (test code = BA#) 0.05 K/mm3 0.0-0.2 N NUCLEATED RBC # (test code = NRBC#) 0.00 K/mm3 0.0-0.1 N MANUAL DIFF REQUIRED (test code = MDIFF) NO, ONLY SCAN NEEDED DIFFERENTIAL [id number] 04:13:00* Test Item Value Reference Range Interpretation Comments STAIN ACCEPTABILITY (test code = STN ACCEPTABLE) STAIN ACCEPTABLE POLYCHROMASIA (test code = POLC) 1+ HYPOCHROMIA (test code = HYPO) 1+ ANISOCYTOSIS (test code = ANISO) 1+ MICROCYTOSIS (test code = MICR) 1+ MACROCYTOSIS (test code = MACR) 1+ PLATELET ESTIMATE (test code = PLTEST) ADEQUATE PLATELET MORPHOLOGY (test code = PLTMORPH) NORMAL COMPREHENSIVE METABOLIC [id number] 04:10:00* Test Item Value Reference Range Interpretation Comments SODIUM (test code = NA) 151 mmol/L 136-145 H POTASSIUM (test code = K) 3.1 mmol/L 3.5-5.1 L CHLORIDE (test code = CL) 117.0 mmol/L 98-107 H CARBON DIOXIDE (test code = CO2) 28.0 mmol/L 21-32 N ANION GAP (test code = GAP) 9.1 10-20 L GLUCOSE (test code = GLU) 263 mg/dL 74-106 H BLOOD UREA NITROGEN (test code = BUN) 19 mg/dL 7-18 H GLOMERULAR FILTRATION RATE (test code = GFR) > 60 mL/min >=60 Estimated GFR by using Modified MDRD formula.Chronic kidney disease is defined as either kidney damageor GFR <60 mL/min/1.73 m2 for >3 months. CREATININE (test code = CREAT) 0.60 mg/dL 0.55-1.02 N Note change in reference range due to change in reagent. BUN/CREATININE RATIO (test code = BUN/CREA) 32.8 10-20 H TOTAL PROTEIN (test code = PROT) 6.3 gram/dL 6.4-8.2 L ALBUMIN (test code = ALB) 1.7 g/dL 3.4-5.0 L GLOBULIN (test code = GLOB) 4.6 gram/dL 2.7-4.2 H ALBUMIN/GLOBULIN RATIO (test code = A/G) 0.4 0.75-1.50 L CALCIUM (test code = CA) 8.4 mg/dL 8.5-10.1 L BILIRUBIN TOTAL (test code = BILT) 0.30 mg/dL 0.0-1.0 N SGOT/AST (test code = AST) 29 IUnit/L 15-37 N SGPT/ALT (test code = ALT) 46 IUnit/L 12-78 N ALKALINE PHOSPHATASE TOTAL (test code = ALKP) 85 IUnit/L 45-117 N Note change in reference range due to change in reagent. [id number] 04:10:00* Test Item Value Reference Range Interpretation Comments PHOSPHORUS (test code = PHOS) 2.5 mg/dL 2.5-4.9 N [id number] 04:10:00* Test Item Value Reference Range Interpretation Comments MAGNESIUM (test code = MAG) 2.2 mg/dL 1.8-2.4 N CALCIUM [id number] 04:10:00* Test Item Value Reference Range Interpretation Comments CALCIUM IONIZED (test code = AVTAR) 1.29 mmol/L 1.12-1.32 N COMPREHENSIVE METABOLIC [id number] 04:09:00* Test Item Value Reference Range Interpretation Comments SODIUM (test code = NA) 151 mmol/L 136-145 H POTASSIUM (test code = K) 3.1 mmol/L 3.5-5.1 L CHLORIDE (test code = CL) 117.0 mmol/L 98-107 H CARBON DIOXIDE (test code = CO2) 28.0 mmol/L 21-32 N ANION GAP (test code = GAP) 9.1 10-20 L GLUCOSE (test code = GLU) 263 mg/dL 74-106 H BLOOD UREA NITROGEN (test code = BUN) 19 mg/dL 7-18 H GLOMERULAR FILTRATION RATE (test code = GFR) > 60 mL/min >=60 Estimated GFR by using Modified MDRD formula.Chronic kidney disease is defined as either kidney damageor GFR <60 mL/min/1.73 m2 for >3 months. CREATININE (test code = CREAT) 0.60 mg/dL 0.55-1.02 N Note change in reference range due to change in reagent. BUN/CREATININE RATIO (test code = BUN/CREA) 32.8 10-20 H TOTAL PROTEIN (test code = PROT) 6.3 gram/dL 6.4-8.2 L ALBUMIN (test code = ALB) 1.7 g/dL 3.4-5.0 L GLOBULIN (test code = GLOB) 4.6 gram/dL 2.7-4.2 H ALBUMIN/GLOBULIN RATIO (test code = A/G) 0.4 0.75-1.50 L CALCIUM (test code = CA) 8.4 mg/dL 8.5-10.1 L BILIRUBIN TOTAL (test code = BILT) 0.30 mg/dL 0.0-1.0 N SGOT/AST (test code = AST) 29 IUnit/L 15-37 N SGPT/ALT (test code = ALT) 46 IUnit/L 12-78 N ALKALINE PHOSPHATASE TOTAL (test code = ALKP) 85 IUnit/L 45-117 N Note change in reference range due to change in reagent. [id number] 04:09:00* Test Item Value Reference Range Interpretation Comments PHOSPHORUS (test code = PHOS) 2.5 mg/dL 2.5-4.9 N [id number] 04:09:00* Test Item Value Reference Range Interpretation Comments MAGNESIUM (test code = MAG) 2.2 mg/dL 1.8-2.4 N CALCIUM [id number] 04:09:00* Test Item Value Reference Range Interpretation Comments CALCIUM IONIZED (test code = AVTAR) mmol/L 1.12-1.32 COMPREHENSIVE METABOLIC [id number] 04:01:00* Test Item Value Reference Range Interpretation Comments SODIUM (test code = NA) 151 mmol/L 136-145 H POTASSIUM (test code = K) 3.1 mmol/L 3.5-5.1 L CHLORIDE (test code = CL) 117.0 mmol/L 98-107 H CARBON DIOXIDE (test code = CO2) mmol/L 21-32 ANION GAP (test code = GAP) 10-20 GLUCOSE (test code = GLU) mg/dL 74-106 BLOOD UREA NITROGEN (test code = BUN) mg/dL 7-18 GLOMERULAR FILTRATION RATE (test code = GFR) mL/min >=60 CREATININE (test code = CREAT) mg/dL 0.55-1.02 BUN/CREATININE RATIO (test code = BUN/CREA) 10-20 TOTAL PROTEIN (test code = PROT) gram/dL 6.4-8.2 ALBUMIN (test code = ALB) g/dL 3.4-5.0 GLOBULIN (test code = GLOB) gram/dL 2.7-4.2 ALBUMIN/GLOBULIN RATIO (test code = A/G) 0.75-1.50 CALCIUM (test code = CA) mg/dL 8.5-10.1 BILIRUBIN TOTAL (test code = BILT) mg/dL 0.0-1.0 SGOT/AST (test code = AST) IUnit/L 15-37 SGPT/ALT (test code = ALT) IUnit/L 12-78 ALKALINE PHOSPHATASE TOTAL (test code = ALKP) IUnit/L 45-117 [id number] 04:01:00* Test Item Value Reference Range Interpretation Comments PHOSPHORUS (test code = PHOS) mg/dL 2.5-4.9 [id number] 04:01:00* Test Item Value Reference Range Interpretation Comments MAGNESIUM (test code = MAG) mg/dL 1.8-2.4 CALCIUM [id number] 04:01:00* Test Item Value Reference Range Interpretation Comments CALCIUM IONIZED (test code = AVTAR) mmol/L 1.12-1.32 CBC W/AUTO [id number] 03:49:00* Test Item Value Reference Range Interpretation Comments WHITE BLOOD CELL (test code = WBC) 11.8 K/mm3 4.5-12.5 N RED BLOOD CELL (test code = RBC) 3.23 mill/mm3 3.7-5.2 L HEMOGLOBIN (test code = HGB) 9.3 gram/dL 11.5-15.5 L HEMATOCRIT (test code = HCT) 31.5 % 36.0-46.0 L MEAN CELL VOLUME (test code = MCV) 97.5 fL 80-98 N MEAN CELL HGB (test code = MCH) 28.8 picogram 27.0-33.0 N MEAN CELL HGB CONCETRATION (test code = MCHC) 29.5 gram/dL 33.0-36. 0 L RED CELL DISTRIBUTION WIDTH (test code = RDW) 17.7 % 11.6-16. 2 H RED CELL DISTRIBUTION WIDTH SD (test code = RDW-SD) 62.1 fL 37 .0-51.0 H PLATELET COUNT (test code = PLT) 402 K/mm3 150-450 N MEAN PLATELET VOLUME (test code = MPV) 10.6 fL 6.7-11.0 N NEUTROPHIL % (test code = NT%) 70.5 % 39.0-69.0 H IMMATURE GRANULOCYTE % (test code = IG%) 0.5 % 0.0-5.0 N LYMPHOCYTE % (test code = LY%) 17.3 % 25.0-55.0 L MONOCYTE % (test code = MO%) 11.1 % 0.0-10.0 H EOSINOPHIL % (test code = EO%) 0.2 % 0.0-5.0 N BASOPHIL % (test code = BA%) 0.4 % 0.0-1.0 N NUCLEATED RBC % (test code = NRBC%) 0.0 % 0-0 N NEUTROPHIL # (test code = NT#) 8.35 K/mm3 1.8-7.7 H IMMATURE GRANULOCYTE # (test code = IG#) 0.06 x10 3/uL 0-0.03 H LYMPHOCYTE # (test code = LY#) 2.05 K/mm3 1.0-5.0 N MONOCYTE # (test code = MO#) 1.31 K/mm3 0-0.8 H EOSINOPHIL # (test code = EO#) 0.02 K/mm3 0.0-0.5 N BASOPHIL # (test code = BA#) 0.05 K/mm3 0.0-0.2 N NUCLEATED RBC # (test code = NRBC#) 0.00 K/mm3 0.0-0.1 N MANUAL DIFF REQUIRED (test code = MDIFF) NO, ONLY SCAN NEEDED DIFFERENTIAL [id number] 03:49:00* Test Item Value Reference Range Interpretation Comments STAIN ACCEPTABILITY (test code = STN ACCEPTABLE) CABOT RINGS (test code = CAB) MORPHOLOGY COMMENT (test code = MOC) PLATELET ESTIMATE (test code = PLTEST) PLATELET MORPHOLOGY (test code = PLTMORPH) CBC W/AUTO [id number] 03:49:00* Test Item Value Reference Range Interpretation Comments WHITE BLOOD CELL (test code = WBC) 11.8 K/mm3 4.5-12.5 N RED BLOOD CELL (test code = RBC) 3.23 mill/mm3 3.7-5.2 L HEMOGLOBIN (test code = HGB) 9.3 gram/dL 11.5-15.5 L HEMATOCRIT (test code = HCT) 31.5 % 36.0-46.0 L MEAN CELL VOLUME (test code = MCV) 97.5 fL 80-98 N MEAN CELL HGB (test code = MCH) 28.8 picogram 27.0-33.0 N MEAN CELL HGB CONCETRATION (test code = MCHC) 29.5 gram/dL 33.0-36. 0 L RED CELL DISTRIBUTION WIDTH (test code = RDW) 17.7 % 11.6-16. 2 H RED CELL DISTRIBUTION WIDTH SD (test code = RDW-SD) 62.1 fL 37 .0-51.0 H PLATELET COUNT (test code = PLT) 402 K/mm3 150-450 N MEAN PLATELET VOLUME (test code = MPV) 10.6 fL 6.7-11.0 N NEUTROPHIL % (test code = NT%) 70.5 % 39.0-69.0 H IMMATURE GRANULOCYTE % (test code = IG%) 0.5 % 0.0-5.0 N LYMPHOCYTE % (test code = LY%) 17.3 % 25.0-55.0 L MONOCYTE % (test code = MO%) 11.1 % 0.0-10.0 H EOSINOPHIL % (test code = EO%) 0.2 % 0.0-5.0 N BASOPHIL % (test code = BA%) 0.4 % 0.0-1.0 N NUCLEATED RBC % (test code = NRBC%) 0.0 % 0-0 N NEUTROPHIL # (test code = NT#) 8.35 K/mm3 1.8-7.7 H IMMATURE GRANULOCYTE # (test code = IG#) 0.06 x10 3/uL 0-0.03 H LYMPHOCYTE # (test code = LY#) 2.05 K/mm3 1.0-5.0 N MONOCYTE # (test code = MO#) 1.31 K/mm3 0-0.8 H EOSINOPHIL # (test code = EO#) 0.02 K/mm3 0.0-0.5 N BASOPHIL # (test code = BA#) 0.05 K/mm3 0.0-0.2 N NUCLEATED RBC # (test code = NRBC#) 0.00 K/mm3 0.0-0.1 N MANUAL DIFF REQUIRED (test code = MDIFF) NO, ONLY SCAN NEEDED DIFFERENTIAL [id number] 03:49:00* Test Item Value Reference Range Interpretation Comments STAIN ACCEPTABILITY (test code = STN ACCEPTABLE) CABOT RINGS (test code = CAB) MORPHOLOGY COMMENT (test code = MOC) PLATELET ESTIMATE (test code = PLTEST) PLATELET MORPHOLOGY (test code = PLTMORPH) CBC W/AUTO [id number] 03:49:00* Test Item Value Reference Range Interpretation Comments WHITE BLOOD CELL (test code = WBC) 11.8 K/mm3 4.5-12.5 N RED BLOOD CELL (test code = RBC) 3.23 mill/mm3 3.7-5.2 L HEMOGLOBIN (test code = HGB) 9.3 gram/dL 11.5-15.5 L HEMATOCRIT (test code = HCT) 31.5 % 36.0-46.0 L MEAN CELL VOLUME (test code = MCV) 97.5 fL 80-98 N MEAN CELL HGB (test code = MCH) 28.8 picogram 27.0-33.0 N MEAN CELL HGB CONCETRATION (test code = MCHC) 29.5 gram/dL 33.0-36. 0 L RED CELL DISTRIBUTION WIDTH (test code = RDW) 17.7 % 11.6-16. 2 H RED CELL DISTRIBUTION WIDTH SD (test code = RDW-SD) 62.1 fL 37 .0-51.0 H PLATELET COUNT (test code = PLT) 402 K/mm3 150-450 N MEAN PLATELET VOLUME (test code = MPV) 10.6 fL 6.7-11.0 N NEUTROPHIL % (test code = NT%) 70.5 % 39.0-69.0 H IMMATURE GRANULOCYTE % (test code = IG%) 0.5 % 0.0-5.0 N LYMPHOCYTE % (test code = LY%) 17.3 % 25.0-55.0 L MONOCYTE % (test code = MO%) 11.1 % 0.0-10.0 H EOSINOPHIL % (test code = EO%) 0.2 % 0.0-5.0 N BASOPHIL % (test code = BA%) 0.4 % 0.0-1.0 N NUCLEATED RBC % (test code = NRBC%) 0.0 % 0-0 N NEUTROPHIL # (test code = NT#) 8.35 K/mm3 1.8-7.7 H IMMATURE GRANULOCYTE # (test code = IG#) 0.06 x10 3/uL 0-0.03 H LYMPHOCYTE # (test code = LY#) 2.05 K/mm3 1.0-5.0 N MONOCYTE # (test code = MO#) 1.31 K/mm3 0-0.8 H EOSINOPHIL # (test code = EO#) 0.02 K/mm3 0.0-0.5 N BASOPHIL # (test code = BA#) 0.05 K/mm3 0.0-0.2 N NUCLEATED RBC # (test code = NRBC#) 0.00 K/mm3 0.0-0.1 N MANUAL DIFF REQUIRED (test code = MDIFF) NO, ONLY SCAN NEEDED DIFFERENTIAL [id number] 03:49:00* Test Item Value Reference Range Interpretation Comments STAIN ACCEPTABILITY (test code = STN ACCEPTABLE) MORPHOLOGY COMMENT (test code = MOC) PLATELET ESTIMATE (test code = PLTEST) PLATELET MORPHOLOGY (test code = PLTMORPH) CBC W/AUTO [id number] 03:49:00* Test Item Value Reference Range Interpretation Comments WHITE BLOOD CELL (test code = WBC) 11.8 K/mm3 4.5-12.5 N RED BLOOD CELL (test code = RBC) 3.23 mill/mm3 3.7-5.2 L HEMOGLOBIN (test code = HGB) 9.3 gram/dL 11.5-15.5 L HEMATOCRIT (test code = HCT) 31.5 % 36.0-46.0 L MEAN CELL VOLUME (test code = MCV) 97.5 fL 80-98 N MEAN CELL HGB (test code = MCH) 28.8 picogram 27.0-33.0 N MEAN CELL HGB CONCETRATION (test code = MCHC) 29.5 gram/dL 33.0-36. 0 L RED CELL DISTRIBUTION WIDTH (test code = RDW) 17.7 % 11.6-16. 2 H RED CELL DISTRIBUTION WIDTH SD (test code = RDW-SD) 62.1 fL 37 .0-51.0 H PLATELET COUNT (test code = PLT) 402 K/mm3 150-450 N MEAN PLATELET VOLUME (test code = MPV) 10.6 fL 6.7-11.0 N NEUTROPHIL % (test code = NT%) 70.5 % 39.0-69.0 H IMMATURE GRANULOCYTE % (test code = IG%) 0.5 % 0.0-5.0 N LYMPHOCYTE % (test code = LY%) 17.3 % 25.0-55.0 L MONOCYTE % (test code = MO%) 11.1 % 0.0-10.0 H EOSINOPHIL % (test code = EO%) 0.2 % 0.0-5.0 N BASOPHIL % (test code = BA%) 0.4 % 0.0-1.0 N NUCLEATED RBC % (test code = NRBC%) 0.0 % 0-0 N NEUTROPHIL # (test code = NT#) 8.35 K/mm3 1.8-7.7 H IMMATURE GRANULOCYTE # (test code = IG#) 0.06 x10 3/uL 0-0.03 H LYMPHOCYTE # (test code = LY#) 2.05 K/mm3 1.0-5.0 N MONOCYTE # (test code = MO#) 1.31 K/mm3 0-0.8 H EOSINOPHIL # (test code = EO#) 0.02 K/mm3 0.0-0.5 N BASOPHIL # (test code = BA#) 0.05 K/mm3 0.0-0.2 N NUCLEATED RBC # (test code = NRBC#) 0.00 K/mm3 0.0-0.1 N MANUAL DIFF REQUIRED (test code = MDIFF) NO, ONLY SCAN NEEDED DIFFERENTIAL [id number] 03:49:00* Test Item Value Reference Range Interpretation Comments STAIN ACCEPTABILITY (test code = STN ACCEPTABLE) CABOT RINGS (test code = CAB) MORPHOLOGY COMMENT (test code = MOC) PLATELET ESTIMATE (test code = PLTEST) PLATELET MORPHOLOGY (test code = PLTMORPH) CBC W/AUTO [id number] 03:39:00* Test Item Value Reference Range Interpretation Comments WHITE BLOOD CELL (test code = WBC) K/mm3 4.5-12.5 RED BLOOD CELL (test code = RBC) mill/mm3 3.7-5.2 HEMOGLOBIN (test code = HGB) gram/dL 11.5-15.5 HEMATOCRIT (test code = HCT) % 36.0-46.0 MEAN CELL VOLUME (test code = MCV) fL 80-98 MEAN CELL HGB (test code = MCH) picogram 27.0-33.0 MEAN CELL HGB CONCETRATION (test code = MCHC) gram/dL 33.0-36. 0 RED CELL DISTRIBUTION WIDTH (test code = RDW) % 11.6-16. 2 RED CELL DISTRIBUTION WIDTH SD (test code = RDW-SD) fL 37 .0-51.0 PLATELET COUNT (test code = PLT) 402 K/mm3 150-450 N MEAN PLATELET VOLUME (test code = MPV) fL 6.7-11.0 NEUTROPHIL % (test code = NT%) % 39.0-69.0 IMMATURE GRANULOCYTE % (test code = IG%) % 0.0-5.0 LYMPHOCYTE % (test code = LY%) % 25.0-55.0 MONOCYTE % (test code = MO%) % 0.0-10.0 EOSINOPHIL % (test code = EO%) % 0.0-5.0 BASOPHIL % (test code = BA%) % 0.0-1.0 NEUTROPHIL # (test code = NT#) K/mm3 1.8-7.7 LYMPHOCYTE # (test code = LY#) K/mm3 1.0-5.0 MONOCYTE # (test code = MO#) K/mm3 0-0.8 EOSINOPHIL # (test code = EO#) K/mm3 0.0-0.5 BASOPHIL # (test code = BA#) K/mm3 0.0-0.2 [id number] 01:09:00* Test Item Value Reference Range Interpretation Comments GLUBED (test code = GLUBED) 262 mg/dL 74-106 H Performed by certified oil refinery operator at [facility] [place] [id number] 17:12:00* Test Item Value Reference Range Interpretation Comments GLUBED (test code = GLUBED) 177 mg/dL 74-106 H Performed by certified oil refinery operator at [facility] [place] [id number] 12:37:00* Test Item Value Reference Range Interpretation Comments GLUBED (test code = GLUBED) 117 mg/dL 74-106 H Performed by certified oil refinery operator at [facility] [place] [id number] 10:21:00* Test Item Value Reference Range Interpretation Comments TROPONIN-I (test code = TROPI) <0.015 ng/mL 0-0.045 N 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: COLLECT 3 HOURS AFTER PREVIOUS [id number] 07:52:00* Test Item Value Reference Range Interpretation Comments GLUBED (test code = GLUBED) 197 mg/dL 74-106 H Performed by certified oil refinery operator at [facility] [place] - XR CHEST 1 [id number] 07:18:00 FAX: Gabby Weiss NP [place]: St: ADM FAX: Asmita Walsh MD FAX: Nelida Peck [phone] Name: AROLDO BERRIOS [facility] : 1950 Age/S: 69/F [address] Unit #: [id number] Loc: [address] [place] [address] Phys: Gabby Weiss NP Acct: [id number] Dis Date: Status: ADM IN ONE #: [phone] Exam Date: 11/07/2019 0347 FAX #: [phone] Reason: Acute Respiratory Failure EXAMS: CPT CODE: [id number] XR CHEST 1 V 23298 REASON FOR EXAM: Acute Respiratory Failure EXAM ORDER DATE: 11/07/2019 2: 00 AM Ordering: Gabby Weiss NP Attending:Asmita Lew MD Location:[facility] [place] PROCEDURE: - XR CHEST 1 V BERNICE RISON: 11/06/2019 FINDINGS: Portable AP frontal view of the chest obtained at 3:47 AM shows clear lungs without evidence of consolidation. T here is no evidence of effusion. The heart size is within normal limits. Pulmonary vasculatures are minimally congested. Stable appearance of the right IJ central line IMPRESSION: Status post extubation. NG tube has been removed. Persistent vague haziness of the lungs sugges tive of atelectasis Electronically Signed by Nia Castellanos on 020 at 0718 Reported and signed by: Rafael Castellanos M.D. CC: Gabby Weiss NP; Asmita Lew MD; Nelida Ness MD Technologi st: Elijah Escalona RT(R); VALENTINA FRANCIS RT(R) Trnscrd Date/Time/By: 11/07/2019 (0718) : By: [facility] Orig Print D/T: S: 11/07/2019 (0721) PAGE 1 Signed Report [id number] 07:07:00* Test Item Value Reference Range Interpretation Comments GLUBED (test code = GLUBED) 185 mg/dL 74-106 H Performed by certified oil refinery operator at [facility] [place] CBC W/AUTO [id number] 04:44:00* Test Item Value Reference Range Interpretation Comments WHITE BLOOD CELL (test code = WBC) 13.9 K/mm3 4.5-12.5 H RED BLOOD CELL (test code = RBC) 3.13 mill/mm3 3.7-5.2 L HEMOGLOBIN (test code = HGB) 9.0 gram/dL 11.5-15.5 L HEMATOCRIT (test code = HCT) 30.4 % 36.0-46.0 L MEAN CELL VOLUME (test code = MCV) 97.1 fL 80-98 N MEAN CELL HGB (test code = MCH) 28.8 picogram 27.0-33.0 N MEAN CELL HGB CONCETRATION (test code = MCHC) 29.6 gram/dL 33.0-36. 0 L RED CELL DISTRIBUTION WIDTH (test code = RDW) 17.1 % 11.6-16. 2 H RED CELL DISTRIBUTION WIDTH SD (test code = RDW-SD) 60.2 fL 37 .0-51.0 H PLATELET COUNT (test code = PLT) 413 K/mm3 150-450 N MEAN PLATELET VOLUME (test code = MPV) 10.8 fL 6.7-11.0 N NEUTROPHIL % (test code = NT%) 80.1 % 39.0-69.0 H IMMATURE GRANULOCYTE % (test code = IG%) 0.4 % 0.0-5.0 N LYMPHOCYTE % (test code = LY%) 11.2 % 25.0-55.0 L MONOCYTE % (test code = MO%) 7.6 % 0.0-10.0 N EOSINOPHIL % (test code = EO%) 0.3 % 0.0-5.0 N BASOPHIL % (test code = BA%) 0.4 % 0.0-1.0 N NUCLEATED RBC % (test code = NRBC%) 0.0 % 0-0 N NEUTROPHIL # (test code = NT#) 11.12 K/mm3 1.8-7.7 H IMMATURE GRANULOCYTE # (test code = IG#) 0.06 x10 3/uL 0-0.03 H LYMPHOCYTE # (test code = LY#) 1.55 K/mm3 1.0-5.0 N MONOCYTE # (test code = MO#) 1.05 K/mm3 0-0.8 H EOSINOPHIL # (test code = EO#) 0.04 K/mm3 0.0-0.5 N BASOPHIL # (test code = BA#) 0.05 K/mm3 0.0-0.2 N NUCLEATED RBC # (test code = NRBC#) 0.00 K/mm3 0.0-0.1 N MANUAL DIFF REQUIRED (test code = MDIFF) NO, ONLY SCAN NEEDED DIFFERENTIAL [id number] 04:44:00* Test Item Value Reference Range Interpretation Comments STAIN ACCEPTABILITY (test code = STN ACCEPTABLE) STAIN ACCEPTABLE POLYCHROMASIA (test code = POLC) 1+ ANISOCYTOSIS (test code = ANISO) 1+ MACROCYTOSIS (test code = MACR) 1+ PLATELET ESTIMATE (test code = PLTEST) ADEQUATE PLATELET MORPHOLOGY (test code = PLTMORPH) NORMAL ARTERIAL BLOOD [id number] 04:25:00* Test Item Value Reference Range Interpretation Comments ARTERIAL BLOOD GAS PH (test code = PHA) 7.56 7.35-7.45 H H Results called to and read back by Segundo 00:17 - 11/07/2019; by Jenelle ARTERIAL BLOOD GAS PCO2 (test code = PCO2A) 29.7 mm Hg 35-45 L ARTERIAL BLOOD GAS PO2 (test code = PO2A) 88.0 mmHg 80-100 N BICARBONATE TOTAL HCO3 (test code = HCO3) 26.1 mmol/L 23.0-27.0 N BASE EXCESS (test code = JOANNE) 4.1 mmol/L -3.0-5.0 N ABG O2 SATURATION (test code = SATA) 97.1 % 90.0-98.0 N ABG TYPE (test code = TYPEA) Arterial FIO2 (test code = FIO2A) 28.0 ABG L/M (test code = L/M) 2.00 L/MIN ABG SITE (test code = SITEA) Rt BRACHIAL ARTERY MODIFIED ALLENS (test code = MODALL) Unable CHECK PERFORMED SODIUM (test code = NA/ABG) 141.5 mEq/L 135-148 N POTASSIUM (test code = K/ABG) 3.3 mEq/L 3.5-4.5 L CHLORIDE (test code = CL/ABG) 111 mEq/L 98-106 H GLUCOSE (test code = GLU/ABG) 297 mg/dL 74-99 H HEMATOCRIT (test code = HCT/ABG) 29 % 35-47 L IONIZED CALCIUM (test code = CAIABG) 1.22 mmol/L 1.1-1.37 N TOTAL HGB (test code = THB) 9.7 gram/dL 11.5-15.5 L HGB O2 SAT (test code = HBOSAT) 96.0 % 94.00-98.00 N CARBOXYHEMOGLOBIN (test code = HOHGBT) 0.8 %totalHg 0.5-1.5 N METHEMOGLOBIN (test code = METHGB) 0.3 % 0.0-1.50 N O2 CONTENT (test code = O2CT) 13.2 % vol 18.0-22.0 L COMPREHENSIVE METABOLIC [id number] 04:11:00* Test Item Value Reference Range Interpretation Comments SODIUM (test code = NA) 151 mmol/L 136-145 H POTASSIUM (test code = K) 3.3 mmol/L 3.5-5.1 L CHLORIDE (test code = CL) 115.0 mmol/L 98-107 H CARBON DIOXIDE (test code = CO2) 32.0 mmol/L 21-32 N ANION GAP (test code = GAP) 7.3 10-20 L GLUCOSE (test code = GLU) 221 mg/dL 74-106 H BLOOD UREA NITROGEN (test code = BUN) 27 mg/dL 7-18 H GLOMERULAR FILTRATION RATE (test code = GFR) > 60 mL/min >=60 Estimated GFR by using Modified MDRD formula.Chronic kidney disease is defined as either kidney damageor GFR <60 mL/min/1.73 m2 for >3 months. CREATININE (test code = CREAT) 0.60 mg/dL 0.55-1.02 N Note change in reference range due to change in reagent. BUN/CREATININE RATIO (test code = BUN/CREA) 47.6 10-20 H TOTAL PROTEIN (test code = PROT) 6.5 gram/dL 6.4-8.2 N ALBUMIN (test code = ALB) 1.6 g/dL 3.4-5.0 L GLOBULIN (test code = GLOB) 4.9 gram/dL 2.7-4.2 H ALBUMIN/GLOBULIN RATIO (test code = A/G) 0.3 0.75-1.50 L CALCIUM (test code = CA) 9.1 mg/dL 8.5-10.1 N BILIRUBIN TOTAL (test code = BILT) 0.30 mg/dL 0.0-1.0 N SGOT/AST (test code = AST) 51 IUnit/L 15-37 H SGPT/ALT (test code = ALT) 49 IUnit/L 12-78 N ALKALINE PHOSPHATASE TOTAL (test code = ALKP) 86 IUnit/L 45-117 N Note change in reference range due to change in reagent. [id number] 04:11:00* Test Item Value Reference Range Interpretation Comments PHOSPHORUS (test code = PHOS) 1.9 mg/dL 2.5-4.9 L [id number] 04:11:00* Test Item Value Reference Range Interpretation Comments MAGNESIUM (test code = MAG) 2.3 mg/dL 1.8-2.4 N CALCIUM [id number] 04:11:00* Test Item Value Reference Range Interpretation Comments CALCIUM IONIZED (test code = AVTAR) 1.32 mmol/L 1.12-1.32 N CBC W/AUTO [id number] 04:10:00* Test Item Value Reference Range Interpretation Comments WHITE BLOOD CELL (test code = WBC) 13.9 K/mm3 4.5-12.5 H RED BLOOD CELL (test code = RBC) 3.13 mill/mm3 3.7-5.2 L HEMOGLOBIN (test code = HGB) 9.0 gram/dL 11.5-15.5 L HEMATOCRIT (test code = HCT) 30.4 % 36.0-46.0 L MEAN CELL VOLUME (test code = MCV) 97.1 fL 80-98 N MEAN CELL HGB (test code = MCH) 28.8 picogram 27.0-33.0 N MEAN CELL HGB CONCETRATION (test code = MCHC) 29.6 gram/dL 33.0-36. 0 L RED CELL DISTRIBUTION WIDTH (test code = RDW) 17.1 % 11.6-16. 2 H RED CELL DISTRIBUTION WIDTH SD (test code = RDW-SD) 60.2 fL 37 .0-51.0 H PLATELET COUNT (test code = PLT) 413 K/mm3 150-450 N MEAN PLATELET VOLUME (test code = MPV) 10.8 fL 6.7-11.0 N NEUTROPHIL % (test code = NT%) 80.1 % 39.0-69.0 H IMMATURE GRANULOCYTE % (test code = IG%) 0.4 % 0.0-5.0 N LYMPHOCYTE % (test code = LY%) 11.2 % 25.0-55.0 L MONOCYTE % (test code = MO%) 7.6 % 0.0-10.0 N EOSINOPHIL % (test code = EO%) 0.3 % 0.0-5.0 N BASOPHIL % (test code = BA%) 0.4 % 0.0-1.0 N NUCLEATED RBC % (test code = NRBC%) 0.0 % 0-0 N NEUTROPHIL # (test code = NT#) 11.12 K/mm3 1.8-7.7 H IMMATURE GRANULOCYTE # (test code = IG#) 0.06 x10 3/uL 0-0.03 H LYMPHOCYTE # (test code = LY#) 1.55 K/mm3 1.0-5.0 N MONOCYTE # (test code = MO#) 1.05 K/mm3 0-0.8 H EOSINOPHIL # (test code = EO#) 0.04 K/mm3 0.0-0.5 N BASOPHIL # (test code = BA#) 0.05 K/mm3 0.0-0.2 N NUCLEATED RBC # (test code = NRBC#) 0.00 K/mm3 0.0-0.1 N MANUAL DIFF REQUIRED (test code = MDIFF) NO, ONLY SCAN NEEDED DIFFERENTIAL [id number] 04:10:00* Test Item Value Reference Range Interpretation Comments STAIN ACCEPTABILITY (test code = STN ACCEPTABLE) CABOT RINGS (test code = CAB) MORPHOLOGY COMMENT (test code = MOC) PLATELET ESTIMATE (test code = PLTEST) PLATELET MORPHOLOGY (test code = PLTMORPH) CBC W/AUTO [id number] 04:10:00* Test Item Value Reference Range Interpretation Comments WHITE BLOOD CELL (test code = WBC) 13.9 K/mm3 4.5-12.5 H RED BLOOD CELL (test code = RBC) 3.13 mill/mm3 3.7-5.2 L HEMOGLOBIN (test code = HGB) 9.0 gram/dL 11.5-15.5 L HEMATOCRIT (test code = HCT) 30.4 % 36.0-46.0 L MEAN CELL VOLUME (test code = MCV) 97.1 fL 80-98 N MEAN CELL HGB (test code = MCH) 28.8 picogram 27.0-33.0 N MEAN CELL HGB CONCETRATION (test code = MCHC) 29.6 gram/dL 33.0-36. 0 L RED CELL DISTRIBUTION WIDTH (test code = RDW) 17.1 % 11.6-16. 2 H RED CELL DISTRIBUTION WIDTH SD (test code = RDW-SD) 60.2 fL 37 .0-51.0 H PLATELET COUNT (test code = PLT) 413 K/mm3 150-450 N MEAN PLATELET VOLUME (test code = MPV) 10.8 fL 6.7-11.0 N NEUTROPHIL % (test code = NT%) 80.1 % 39.0-69.0 H IMMATURE GRANULOCYTE % (test code = IG%) 0.4 % 0.0-5.0 N LYMPHOCYTE % (test code = LY%) 11.2 % 25.0-55.0 L MONOCYTE % (test code = MO%) 7.6 % 0.0-10.0 N EOSINOPHIL % (test code = EO%) 0.3 % 0.0-5.0 N BASOPHIL % (test code = BA%) 0.4 % 0.0-1.0 N NUCLEATED RBC % (test code = NRBC%) 0.0 % 0-0 N NEUTROPHIL # (test code = NT#) 11.12 K/mm3 1.8-7.7 H IMMATURE GRANULOCYTE # (test code = IG#) 0.06 x10 3/uL 0-0.03 H LYMPHOCYTE # (test code = LY#) 1.55 K/mm3 1.0-5.0 N MONOCYTE # (test code = MO#) 1.05 K/mm3 0-0.8 H EOSINOPHIL # (test code = EO#) 0.04 K/mm3 0.0-0.5 N BASOPHIL # (test code = BA#) 0.05 K/mm3 0.0-0.2 N NUCLEATED RBC # (test code = NRBC#) 0.00 K/mm3 0.0-0.1 N MANUAL DIFF REQUIRED (test code = MDIFF) NO, ONLY SCAN NEEDED DIFFERENTIAL [id number] 04:10:00* Test Item Value Reference Range Interpretation Comments STAIN ACCEPTABILITY (test code = STN ACCEPTABLE) CABOT RINGS (test code = CAB) MORPHOLOGY COMMENT (test code = MOC) PLATELET ESTIMATE (test code = PLTEST) PLATELET MORPHOLOGY (test code = PLTMORPH) CBC W/AUTO [id number] 04:10:00* Test Item Value Reference Range Interpretation Comments WHITE BLOOD CELL (test code = WBC) 13.9 K/mm3 4.5-12.5 H RED BLOOD CELL (test code = RBC) 3.13 mill/mm3 3.7-5.2 L HEMOGLOBIN (test code = HGB) 9.0 gram/dL 11.5-15.5 L HEMATOCRIT (test code = HCT) 30.4 % 36.0-46.0 L MEAN CELL VOLUME (test code = MCV) 97.1 fL 80-98 N MEAN CELL HGB (test code = MCH) 28.8 picogram 27.0-33.0 N MEAN CELL HGB CONCETRATION (test code = MCHC) 29.6 gram/dL 33.0-36. 0 L RED CELL DISTRIBUTION WIDTH (test code = RDW) 17.1 % 11.6-16. 2 H RED CELL DISTRIBUTION WIDTH SD (test code = RDW-SD) 60.2 fL 37 .0-51.0 H PLATELET COUNT (test code = PLT) 413 K/mm3 150-450 N MEAN PLATELET VOLUME (test code = MPV) 10.8 fL 6.7-11.0 N NEUTROPHIL % (test code = NT%) 80.1 % 39.0-69.0 H IMMATURE GRANULOCYTE % (test code = IG%) 0.4 % 0.0-5.0 N LYMPHOCYTE % (test code = LY%) 11.2 % 25.0-55.0 L MONOCYTE % (test code = MO%) 7.6 % 0.0-10.0 N EOSINOPHIL % (test code = EO%) 0.3 % 0.0-5.0 N BASOPHIL % (test code = BA%) 0.4 % 0.0-1.0 N NUCLEATED RBC % (test code = NRBC%) 0.0 % 0-0 N NEUTROPHIL # (test code = NT#) 11.12 K/mm3 1.8-7.7 H IMMATURE GRANULOCYTE # (test code = IG#) 0.06 x10 3/uL 0-0.03 H LYMPHOCYTE # (test code = LY#) 1.55 K/mm3 1.0-5.0 N MONOCYTE # (test code = MO#) 1.05 K/mm3 0-0.8 H EOSINOPHIL # (test code = EO#) 0.04 K/mm3 0.0-0.5 N BASOPHIL # (test code = BA#) 0.05 K/mm3 0.0-0.2 N NUCLEATED RBC # (test code = NRBC#) 0.00 K/mm3 0.0-0.1 N MANUAL DIFF REQUIRED (test code = MDIFF) NO, ONLY SCAN NEEDED DIFFERENTIAL [id number] 04:10:00* Test Item Value Reference Range Interpretation Comments STAIN ACCEPTABILITY (test code = STN ACCEPTABLE) MORPHOLOGY COMMENT (test code = MOC) PLATELET ESTIMATE (test code = PLTEST) PLATELET MORPHOLOGY (test code = PLTMORPH) CBC W/AUTO [id number] 04:10:00* Test Item Value Reference Range Interpretation Comments WHITE BLOOD CELL (test code = WBC) 13.9 K/mm3 4.5-12.5 H RED BLOOD CELL (test code = RBC) 3.13 mill/mm3 3.7-5.2 L HEMOGLOBIN (test code = HGB) 9.0 gram/dL 11.5-15.5 L HEMATOCRIT (test code = HCT) 30.4 % 36.0-46.0 L MEAN CELL VOLUME (test code = MCV) 97.1 fL 80-98 N MEAN CELL HGB (test code = MCH) 28.8 picogram 27.0-33.0 N MEAN CELL HGB CONCETRATION (test code = MCHC) 29.6 gram/dL 33.0-36. 0 L RED CELL DISTRIBUTION WIDTH (test code = RDW) 17.1 % 11.6-16. 2 H RED CELL DISTRIBUTION WIDTH SD (test code = RDW-SD) 60.2 fL 37 .0-51.0 H PLATELET COUNT (test code = PLT) 413 K/mm3 150-450 N MEAN PLATELET VOLUME (test code = MPV) 10.8 fL 6.7-11.0 N NEUTROPHIL % (test code = NT%) 80.1 % 39.0-69.0 H IMMATURE GRANULOCYTE % (test code = IG%) 0.4 % 0.0-5.0 N LYMPHOCYTE % (test code = LY%) 11.2 % 25.0-55.0 L MONOCYTE % (test code = MO%) 7.6 % 0.0-10.0 N EOSINOPHIL % (test code = EO%) 0.3 % 0.0-5.0 N BASOPHIL % (test code = BA%) 0.4 % 0.0-1.0 N NUCLEATED RBC % (test code = NRBC%) 0.0 % 0-0 N NEUTROPHIL # (test code = NT#) 11.12 K/mm3 1.8-7.7 H IMMATURE GRANULOCYTE # (test code = IG#) 0.06 x10 3/uL 0-0.03 H LYMPHOCYTE # (test code = LY#) 1.55 K/mm3 1.0-5.0 N MONOCYTE # (test code = MO#) 1.05 K/mm3 0-0.8 H EOSINOPHIL # (test code = EO#) 0.04 K/mm3 0.0-0.5 N BASOPHIL # (test code = BA#) 0.05 K/mm3 0.0-0.2 N NUCLEATED RBC # (test code = NRBC#) 0.00 K/mm3 0.0-0.1 N MANUAL DIFF REQUIRED (test code = MDIFF) NO, ONLY SCAN NEEDED DIFFERENTIAL [id number] 04:10:00* Test Item Value Reference Range Interpretation Comments STAIN ACCEPTABILITY (test code = STN ACCEPTABLE) CABOT RINGS (test code = CAB) MORPHOLOGY COMMENT (test code = MOC) PLATELET ESTIMATE (test code = PLTEST) PLATELET MORPHOLOGY (test code = PLTMORPH) COMPREHENSIVE METABOLIC [id number] 04:09:00* Test Item Value Reference Range Interpretation Comments SODIUM (test code = NA) 151 mmol/L 136-145 H POTASSIUM (test code = K) 3.3 mmol/L 3.5-5.1 L CHLORIDE (test code = CL) 115.0 mmol/L 98-107 H CARBON DIOXIDE (test code = CO2) mmol/L 21-32 ANION GAP (test code = GAP) 10-20 GLUCOSE (test code = GLU) mg/dL 74-106 BLOOD UREA NITROGEN (test code = BUN) mg/dL 7-18 GLOMERULAR FILTRATION RATE (test code = GFR) mL/min >=60 CREATININE (test code = CREAT) mg/dL 0.55-1.02 BUN/CREATININE RATIO (test code = BUN/CREA) 10-20 TOTAL PROTEIN (test code = PROT) gram/dL 6.4-8.2 ALBUMIN (test code = ALB) g/dL 3.4-5.0 GLOBULIN (test code = GLOB) gram/dL 2.7-4.2 ALBUMIN/GLOBULIN RATIO (test code = A/G) 0.75-1.50 CALCIUM (test code = CA) mg/dL 8.5-10.1 BILIRUBIN TOTAL (test code = BILT) mg/dL 0.0-1.0 SGOT/AST (test code = AST) IUnit/L 15-37 SGPT/ALT (test code = ALT) IUnit/L 12-78 ALKALINE PHOSPHATASE TOTAL (test code = ALKP) IUnit/L 45-117 [id number] 04:09:00* Test Item Value Reference Range Interpretation Comments PHOSPHORUS (test code = PHOS) mg/dL 2.5-4.9 [id number] 04:09:00* Test Item Value Reference Range Interpretation Comments MAGNESIUM (test code = MAG) mg/dL 1.8-2.4 CALCIUM [id number] 04:09:00* Test Item Value Reference Range Interpretation Comments CALCIUM IONIZED (test code = AVTAR) 1.32 mmol/L 1.12-1.32 N COMPREHENSIVE METABOLIC [id number] 04:03:00* Test Item Value Reference Range Interpretation Comments SODIUM (test code = NA) 151 mmol/L 136-145 H POTASSIUM (test code = K) 3.3 mmol/L 3.5-5.1 L CHLORIDE (test code = CL) 115.0 mmol/L 98-107 H CARBON DIOXIDE (test code = CO2) mmol/L 21-32 ANION GAP (test code = GAP) 10-20 GLUCOSE (test code = GLU) mg/dL 74-106 BLOOD UREA NITROGEN (test code = BUN) mg/dL 7-18 GLOMERULAR FILTRATION RATE (test code = GFR) mL/min >=60 CREATININE (test code = CREAT) mg/dL 0.55-1.02 BUN/CREATININE RATIO (test code = BUN/CREA) 10-20 TOTAL PROTEIN (test code = PROT) gram/dL 6.4-8.2 ALBUMIN (test code = ALB) g/dL 3.4-5.0 GLOBULIN (test code = GLOB) gram/dL 2.7-4.2 ALBUMIN/GLOBULIN RATIO (test code = A/G) 0.75-1.50 CALCIUM (test code = CA) mg/dL 8.5-10.1 BILIRUBIN TOTAL (test code = BILT) mg/dL 0.0-1.0 SGOT/AST (test code = AST) IUnit/L 15-37 SGPT/ALT (test code = ALT) IUnit/L 12-78 ALKALINE PHOSPHATASE TOTAL (test code = ALKP) IUnit/L 45-117 [id number] 04:03:00* Test Item Value Reference Range Interpretation Comments PHOSPHORUS (test code = PHOS) mg/dL 2.5-4.9 [id number] 04:03:00* Test Item Value Reference Range Interpretation Comments MAGNESIUM (test code = MAG) mg/dL 1.8-2.4 CALCIUM [id number] 04:03:00* Test Item Value Reference Range Interpretation Comments CALCIUM IONIZED (test code = AVTAR) mmol/L 1.12-1.32 CBC W/AUTO [id number] 04:02:00* Test Item Value Reference Range Interpretation Comments WHITE BLOOD CELL (test code = WBC) K/mm3 4.5-12.5 RED BLOOD CELL (test code = RBC) mill/mm3 3.7-5.2 HEMOGLOBIN (test code = HGB) gram/dL 11.5-15.5 HEMATOCRIT (test code = HCT) % 36.0-46.0 MEAN CELL VOLUME (test code = MCV) fL 80-98 MEAN CELL HGB (test code = MCH) picogram 27.0-33.0 MEAN CELL HGB CONCETRATION (test code = MCHC) gram/dL 33.0-36. 0 RED CELL DISTRIBUTION WIDTH (test code = RDW) % 11.6-16. 2 RED CELL DISTRIBUTION WIDTH SD (test code = RDW-SD) fL 37 .0-51.0 PLATELET COUNT (test code = PLT) 413 K/mm3 150-450 N MEAN PLATELET VOLUME (test code = MPV) fL 6.7-11.0 NEUTROPHIL % (test code = NT%) % 39.0-69.0 IMMATURE GRANULOCYTE % (test code = IG%) % 0.0-5.0 LYMPHOCYTE % (test code = LY%) % 25.0-55.0 MONOCYTE % (test code = MO%) % 0.0-10.0 EOSINOPHIL % (test code = EO%) % 0.0-5.0 BASOPHIL % (test code = BA%) % 0.0-1.0 NEUTROPHIL # (test code = NT#) K/mm3 1.8-7.7 LYMPHOCYTE # (test code = LY#) K/mm3 1.0-5.0 MONOCYTE # (test code = MO#) K/mm3 0-0.8 EOSINOPHIL # (test code = EO#) K/mm3 0.0-0.5 BASOPHIL # (test code = BA#) K/mm3 0.0-0.2 [id number] 01:48:00* Test Item Value Reference Range Interpretation Comments GLUBED (test code = GLUBED) 237 mg/dL 74-106 H Performed by certified oil refinery operator at [facility] [place] [id number] 21:16:00* Test Item Value Reference Range Interpretation Comments GLUBED (test code = GLUBED) 322 mg/dL 74-106 H Performed by certified oil refinery operator at [facility] [place] Coronavirus 2019 [id number] 15:37:00* Test Item Value Reference Range Interpretation Comments Coronavirus 2019 Confirmation (test code = [id number]) Negative Negative Coronavirus 2019 [id number] 15:36:00* Test Item Value Reference Range Interpretation Comments Coronavirus 2019 Confirmation (test code = [id number]) Negative Negative [id number] 15:10:00* Test Item Value Reference Range Interpretation Comments GLUBED (test code = GLUBED) 252 mg/dL 74-106 H Performed by certified oil refinery operator at [facility] [place] [id number] 10:22:00* Test Item Value Reference Range Interpretation Comments GLUBED (test code = GLUBED) 325 mg/dL 74-106 H Performed by certified oil refinery operator at [facility] [place] - XR CHEST 1 [id number] 07:34:00 FAX: Gabby Weiss NP [place]: B St: ADM FAX: Asmita Walsh MD FAX: Nelida Peck [phone] Name: AROLDO BERRIOS [facility] : 1950 Age/S: 69/F [address] [facility] Unit #: [id number] Loc: V.[address] [address] Phys: Gabby Weiss NP Acct: [id number] Dis Date: Status: ADM IN ONE #: [phone] Exam Date: 11/06/2019 0145 FAX #: [phone] Reason: Acute Respiratory Failure EXAMS: CPT CODE: [id number] XR CHEST 1 V [id number] REASON FOR EXAM: Acute Respiratory Failure Exam Order Date: 11/06/2019 2: 00 AM Ordering M.D.: Gabby Weiss NP PROCEDURE: - XR CHEST 1 V COMPARISON: Chest x-ray the previous evening FINDINGS: Lines and tubes are unchanged from the previous exam. Mild bibasilar opacities appear similar to the previous exam and may represent mild subsegmental atelectasis. Cardiomediastinal silhouette is normal in size. IVC filter and musculoskeletal structures ar e unchanged. IMPRESSION: No change from prior exam. Location: [facility] at 0734 Reported and signed by: Daniel gage MD CC: Gabby Weiss NP; Asmita Lew MD; Nelida Ness MD chnologist: Nissa Chakraborty Trnscrd Date/ Time/By: 11/06/2019 (0734) : By: [email or web address] Orig Print D/T: S: 11/06/19 (0737) PAGE 1 Signed Report CBC W/AUTO [id number] 04:24:00* Test Item Value Reference Range Interpretation Comments WHITE BLOOD CELL (test code = WBC) 16.3 K/mm3 4.5-12.5 H RED BLOOD CELL (test code = RBC) 3.31 mill/mm3 3.7-5.2 L HEMOGLOBIN (test code = HGB) 9.5 gram/dL 11.5-15.5 L HEMATOCRIT (test code = HCT) 32.0 % 36.0-46.0 L MEAN CELL VOLUME (test code = MCV) 96.7 fL 80-98 N MEAN CELL HGB (test code = MCH) 28.7 picogram 27.0-33.0 N MEAN CELL HGB CONCETRATION (test code = MCHC) 29.7 gram/dL 33.0-36. 0 L RED CELL DISTRIBUTION WIDTH (test code = RDW) 17.2 % 11.6-16. 2 H RED CELL DISTRIBUTION WIDTH SD (test code = RDW-SD) 60.6 fL 37 .0-51.0 H PLATELET COUNT (test code = PLT) 422 K/mm3 150-450 RESULT VERIFIED BY REPEAT ANALYSIS MEAN PLATELET VOLUME (test code = MPV) 10.2 fL 6.7-11.0 N NEUTROPHIL % (test code = NT%) 81.3 % 39.0-69.0 H IMMATURE GRANULOCYTE % (test code = IG%) 0.5 % 0.0-5.0 N LYMPHOCYTE % (test code = LY%) 10.4 % 25.0-55.0 L MONOCYTE % (test code = MO%) 7.4 % 0.0-10.0 N EOSINOPHIL % (test code = EO%) 0.1 % 0.0-5.0 N BASOPHIL % (test code = BA%) 0.3 % 0.0-1.0 N NUCLEATED RBC % (test code = NRBC%) 0.0 % 0-0 N NEUTROPHIL # (test code = NT#) 13.22 K/mm3 1.8-7.7 H IMMATURE GRANULOCYTE # (test code = IG#) 0.08 x10 3/uL 0-0.03 H LYMPHOCYTE # (test code = LY#) 1.69 K/mm3 1.0-5.0 N MONOCYTE # (test code = MO#) 1.21 K/mm3 0-0.8 H EOSINOPHIL # (test code = EO#) 0.01 K/mm3 0.0-0.5 N BASOPHIL # (test code = BA#) 0.05 K/mm3 0.0-0.2 N NUCLEATED RBC # (test code = NRBC#) 0.00 K/mm3 0.0-0.1 N MANUAL DIFF REQUIRED (test code = MDIFF) NO, ONLY SCAN NEEDED DIFFERENTIAL [id number] 04:24:00* Test Item Value Reference Range Interpretation Comments STAIN ACCEPTABILITY (test code = STN ACCEPTABLE) STAIN ACCEPTABLE POLYCHROMASIA (test code = POLC) 1+ PLATELET ESTIMATE (test code = PLTEST) ADEQUATE PLATELET MORPHOLOGY (test code = PLTMORPH) NORMAL B-TYPE NATRIURETIC [id number] 04:09:00* Test Item Value Reference Range Interpretation Comments B-TYPE NATRIURETIC PEPTIDE (test code = BNP) 46.77 pgram/mL 0-100 N COMPREHENSIVE METABOLIC [id number] 03:31:00* Test Item Value Reference Range Interpretation Comments SODIUM (test code = NA) 146 mmol/L 136-145 H POTASSIUM (test code = K) 4.2 mmol/L 3.5-5.1 N CHLORIDE (test code = CL) 109.0 mmol/L 98-107 H CARBON DIOXIDE (test code = CO2) 31.0 mmol/L 21-32 N ANION GAP (test code = GAP) 10.2 10-20 N GLUCOSE (test code = GLU) 336 mg/dL 74-106 H BLOOD UREA NITROGEN (test code = BUN) 19 mg/dL 7-18 H GLOMERULAR FILTRATION RATE (test code = GFR) > 60 mL/min >=60 Estimated GFR by using Modified MDRD formula.Chronic kidney disease is defined as either kidney damageor GFR <60 mL/min/1.73 m2 for >3 months. CREATININE (test code = CREAT) 0.60 mg/dL 0.55-1.02 N Note change in reference range due to change in reagent. BUN/CREATININE RATIO (test code = BUN/CREA) 34.4 10-20 H TOTAL PROTEIN (test code = PROT) 7.0 gram/dL 6.4-8.2 N ALBUMIN (test code = ALB) 1.7 g/dL 3.4-5.0 L GLOBULIN (test code = GLOB) 5.3 gram/dL 2.7-4.2 H ALBUMIN/GLOBULIN RATIO (test code = A/G) 0.3 0.75-1.50 L CALCIUM (test code = CA) 9.0 mg/dL 8.5-10.1 N BILIRUBIN TOTAL (test code = BILT) 0.50 mg/dL 0.0-1.0 N SGOT/AST (test code = AST) 13 IUnit/L 15-37 L SGPT/ALT (test code = ALT) 30 IUnit/L 12-78 N ALKALINE PHOSPHATASE TOTAL (test code = ALKP) 89 IUnit/L 45-117 N Note change in reference range due to change in reagent. [id number] 03:31:00* Test Item Value Reference Range Interpretation Comments PHOSPHORUS (test code = PHOS) 2.9 mg/dL 2.5-4.9 N [id number] 03:31:00* Test Item Value Reference Range Interpretation Comments MAGNESIUM (test code = MAG) 2.1 mg/dL 1.8-2.4 N [id number] 03:31:00* Test Item Value Reference Range Interpretation Comments TROPONIN-I (test code = TROPI) 0.075 ng/mL 0-0.045 HH CALCIUM [id number] 03:31:00* Test Item Value Reference Range Interpretation Comments CALCIUM IONIZED (test code = AVTAR) 1.35 mmol/L 1.12-1.32 H CBC W/AUTO [id number] 03:15:00* Test Item Value Reference Range Interpretation Comments WHITE BLOOD CELL (test code = WBC) 16.3 K/mm3 4.5-12.5 H RED BLOOD CELL (test code = RBC) 3.31 mill/mm3 3.7-5.2 L HEMOGLOBIN (test code = HGB) 9.5 gram/dL 11.5-15.5 L HEMATOCRIT (test code = HCT) 32.0 % 36.0-46.0 L MEAN CELL VOLUME (test code = MCV) 96.7 fL 80-98 N MEAN CELL HGB (test code = MCH) 28.7 picogram 27.0-33.0 N MEAN CELL HGB CONCETRATION (test code = MCHC) 29.7 gram/dL 33.0-36. 0 L RED CELL DISTRIBUTION WIDTH (test code = RDW) 17.2 % 11.6-16. 2 H RED CELL DISTRIBUTION WIDTH SD (test code = RDW-SD) 60.6 fL 37 .0-51.0 H PLATELET COUNT (test code = PLT) 422 K/mm3 150-450 RESULT VERIFIED BY REPEAT ANALYSIS MEAN PLATELET VOLUME (test code = MPV) 10.2 fL 6.7-11.0 N NEUTROPHIL % (test code = NT%) 81.3 % 39.0-69.0 H IMMATURE GRANULOCYTE % (test code = IG%) 0.5 % 0.0-5.0 N LYMPHOCYTE % (test code = LY%) 10.4 % 25.0-55.0 L MONOCYTE % (test code = MO%) 7.4 % 0.0-10.0 N EOSINOPHIL % (test code = EO%) 0.1 % 0.0-5.0 N BASOPHIL % (test code = BA%) 0.3 % 0.0-1.0 N NUCLEATED RBC % (test code = NRBC%) 0.0 % 0-0 N NEUTROPHIL # (test code = NT#) 13.22 K/mm3 1.8-7.7 H IMMATURE GRANULOCYTE # (test code = IG#) 0.08 x10 3/uL 0-0.03 H LYMPHOCYTE # (test code = LY#) 1.69 K/mm3 1.0-5.0 N MONOCYTE # (test code = MO#) 1.21 K/mm3 0-0.8 H EOSINOPHIL # (test code = EO#) 0.01 K/mm3 0.0-0.5 N BASOPHIL # (test code = BA#) 0.05 K/mm3 0.0-0.2 N NUCLEATED RBC # (test code = NRBC#) 0.00 K/mm3 0.0-0.1 N MANUAL DIFF REQUIRED (test code = MDIFF) NO, ONLY SCAN NEEDED DIFFERENTIAL [id number] 03:15:00* Test Item Value Reference Range Interpretation Comments STAIN ACCEPTABILITY (test code = STN ACCEPTABLE) MORPHOLOGY COMMENT (test code = MOC) PLATELET ESTIMATE (test code = PLTEST) PLATELET MORPHOLOGY (test code = PLTMORPH) COMPREHENSIVE METABOLIC [id number] 03:13:00* Test Item Value Reference Range Interpretation Comments SODIUM (test code = NA) 146 mmol/L 136-145 H POTASSIUM (test code = K) 4.2 mmol/L 3.5-5.1 N CHLORIDE (test code = CL) 109.0 mmol/L 98-107 H CARBON DIOXIDE (test code = CO2) mmol/L 21-32 ANION GAP (test code = GAP) 10-20 GLUCOSE (test code = GLU) mg/dL 74-106 BLOOD UREA NITROGEN (test code = BUN) mg/dL 7-18 GLOMERULAR FILTRATION RATE (test code = GFR) mL/min >=60 CREATININE (test code = CREAT) mg/dL 0.55-1.02 BUN/CREATININE RATIO (test code = BUN/CREA) 10-20 TOTAL PROTEIN (test code = PROT) gram/dL 6.4-8.2 ALBUMIN (test code = ALB) g/dL 3.4-5.0 GLOBULIN (test code = GLOB) gram/dL 2.7-4.2 ALBUMIN/GLOBULIN RATIO (test code = A/G) 0.75-1.50 CALCIUM (test code = CA) mg/dL 8.5-10.1 BILIRUBIN TOTAL (test code = BILT) mg/dL 0.0-1.0 SGOT/AST (test code = AST) IUnit/L 15-37 SGPT/ALT (test code = ALT) IUnit/L 12-78 ALKALINE PHOSPHATASE TOTAL (test code = ALKP) IUnit/L 45-117 [id number] 03:13:00* Test Item Value Reference Range Interpretation Comments PHOSPHORUS (test code = PHOS) mg/dL 2.5-4.9 [id number] 03:13:00* Test Item Value Reference Range Interpretation Comments MAGNESIUM (test code = MAG) mg/dL 1.8-2.4 [id number] 03:13:00* Test Item Value Reference Range Interpretation Comments TROPONIN-I (test code = TROPI) ng/mL 0-0.045 CALCIUM [id number] 03:13:00* Test Item Value Reference Range Interpretation Comments CALCIUM IONIZED (test code = AVTAR) 1.35 mmol/L 1.12-1.32 H CBC W/AUTO [id number] 03:10:00* Test Item Value Reference Range Interpretation Comments WHITE BLOOD CELL (test code = WBC) 16.3 K/mm3 4.5-12.5 H RED BLOOD CELL (test code = RBC) 3.31 mill/mm3 3.7-5.2 L HEMOGLOBIN (test code = HGB) 9.5 gram/dL 11.5-15.5 L HEMATOCRIT (test code = HCT) 32.0 % 36.0-46.0 L MEAN CELL VOLUME (test code = MCV) 96.7 fL 80-98 N MEAN CELL HGB (test code = MCH) 28.7 picogram 27.0-33.0 N MEAN CELL HGB CONCETRATION (test code = MCHC) 29.7 gram/dL 33.0-36. 0 L RED CELL DISTRIBUTION WIDTH (test code = RDW) 17.2 % 11.6-16. 2 H RED CELL DISTRIBUTION WIDTH SD (test code = RDW-SD) 60.6 fL 37 .0-51.0 H PLATELET COUNT (test code = PLT) 422 K/mm3 150-450 RESULT VERIFIED BY REPEAT ANALYSIS MEAN PLATELET VOLUME (test code = MPV) 10.2 fL 6.7-11.0 N NEUTROPHIL % (test code = NT%) 81.3 % 39.0-69.0 H IMMATURE GRANULOCYTE % (test code = IG%) 0.5 % 0.0-5.0 N LYMPHOCYTE % (test code = LY%) 10.4 % 25.0-55.0 L MONOCYTE % (test code = MO%) 7.4 % 0.0-10.0 N EOSINOPHIL % (test code = EO%) 0.1 % 0.0-5.0 N BASOPHIL % (test code = BA%) 0.3 % 0.0-1.0 N NUCLEATED RBC % (test code = NRBC%) 0.0 % 0-0 N NEUTROPHIL # (test code = NT#) 13.22 K/mm3 1.8-7.7 H IMMATURE GRANULOCYTE # (test code = IG#) 0.08 x10 3/uL 0-0.03 H LYMPHOCYTE # (test code = LY#) 1.69 K/mm3 1.0-5.0 N MONOCYTE # (test code = MO#) 1.21 K/mm3 0-0.8 H EOSINOPHIL # (test code = EO#) 0.01 K/mm3 0.0-0.5 N BASOPHIL # (test code = BA#) 0.05 K/mm3 0.0-0.2 N NUCLEATED RBC # (test code = NRBC#) 0.00 K/mm3 0.0-0.1 N MANUAL DIFF REQUIRED (test code = MDIFF) NO, ONLY SCAN NEEDED DIFFERENTIAL [id number] 03:10:00* Test Item Value Reference Range Interpretation Comments STAIN ACCEPTABILITY (test code = STN ACCEPTABLE) CABOT RINGS (test code = CAB) MORPHOLOGY COMMENT (test code = MOC) PLATELET ESTIMATE (test code = PLTEST) PLATELET MORPHOLOGY (test code = PLTMORPH) CBC W/AUTO [id number] 03:10:00* Test Item Value Reference Range Interpretation Comments WHITE BLOOD CELL (test code = WBC) 16.3 K/mm3 4.5-12.5 H RED BLOOD CELL (test code = RBC) 3.31 mill/mm3 3.7-5.2 L HEMOGLOBIN (test code = HGB) 9.5 gram/dL 11.5-15.5 L HEMATOCRIT (test code = HCT) 32.0 % 36.0-46.0 L MEAN CELL VOLUME (test code = MCV) 96.7 fL 80-98 N MEAN CELL HGB (test code = MCH) 28.7 picogram 27.0-33.0 N MEAN CELL HGB CONCETRATION (test code = MCHC) 29.7 gram/dL 33.0-36. 0 L RED CELL DISTRIBUTION WIDTH (test code = RDW) 17.2 % 11.6-16. 2 H RED CELL DISTRIBUTION WIDTH SD (test code = RDW-SD) 60.6 fL 37 .0-51.0 H PLATELET COUNT (test code = PLT) 422 K/mm3 150-450 RESULT VERIFIED BY REPEAT ANALYSIS MEAN PLATELET VOLUME (test code = MPV) 10.2 fL 6.7-11.0 N NEUTROPHIL % (test code = NT%) 81.3 % 39.0-69.0 H IMMATURE GRANULOCYTE % (test code = IG%) 0.5 % 0.0-5.0 N LYMPHOCYTE % (test code = LY%) 10.4 % 25.0-55.0 L MONOCYTE % (test code = MO%) 7.4 % 0.0-10.0 N EOSINOPHIL % (test code = EO%) 0.1 % 0.0-5.0 N BASOPHIL % (test code = BA%) 0.3 % 0.0-1.0 N NUCLEATED RBC % (test code = NRBC%) 0.0 % 0-0 N NEUTROPHIL # (test code = NT#) 13.22 K/mm3 1.8-7.7 H IMMATURE GRANULOCYTE # (test code = IG#) 0.08 x10 3/uL 0-0.03 H LYMPHOCYTE # (test code = LY#) 1.69 K/mm3 1.0-5.0 N MONOCYTE # (test code = MO#) 1.21 K/mm3 0-0.8 H EOSINOPHIL # (test code = EO#) 0.01 K/mm3 0.0-0.5 N BASOPHIL # (test code = BA#) 0.05 K/mm3 0.0-0.2 N NUCLEATED RBC # (test code = NRBC#) 0.00 K/mm3 0.0-0.1 N MANUAL DIFF REQUIRED (test code = MDIFF) NO, ONLY SCAN NEEDED DIFFERENTIAL [id number] 03:10:00* Test Item Value Reference Range Interpretation Comments STAIN ACCEPTABILITY (test code = STN ACCEPTABLE) MORPHOLOGY COMMENT (test code = MOC) PLATELET ESTIMATE (test code = PLTEST) PLATELET MORPHOLOGY (test code = PLTMORPH) CBC W/AUTO [id number] 03:10:00* Test Item Value Reference Range Interpretation Comments WHITE BLOOD CELL (test code = WBC) 16.3 K/mm3 4.5-12.5 H RED BLOOD CELL (test code = RBC) 3.31 mill/mm3 3.7-5.2 L HEMOGLOBIN (test code = HGB) 9.5 gram/dL 11.5-15.5 L HEMATOCRIT (test code = HCT) 32.0 % 36.0-46.0 L MEAN CELL VOLUME (test code = MCV) 96.7 fL 80-98 N MEAN CELL HGB (test code = MCH) 28.7 picogram 27.0-33.0 N MEAN CELL HGB CONCETRATION (test code = MCHC) 29.7 gram/dL 33.0-36. 0 L RED CELL DISTRIBUTION WIDTH (test code = RDW) 17.2 % 11.6-16. 2 H RED CELL DISTRIBUTION WIDTH SD (test code = RDW-SD) 60.6 fL 37 .0-51.0 H PLATELET COUNT (test code = PLT) 422 K/mm3 150-450 RESULT VERIFIED BY REPEAT ANALYSIS MEAN PLATELET VOLUME (test code = MPV) 10.2 fL 6.7-11.0 N NEUTROPHIL % (test code = NT%) 81.3 % 39.0-69.0 H IMMATURE GRANULOCYTE % (test code = IG%) 0.5 % 0.0-5.0 N LYMPHOCYTE % (test code = LY%) 10.4 % 25.0-55.0 L MONOCYTE % (test code = MO%) 7.4 % 0.0-10.0 N EOSINOPHIL % (test code = EO%) 0.1 % 0.0-5.0 N BASOPHIL % (test code = BA%) 0.3 % 0.0-1.0 N NUCLEATED RBC % (test code = NRBC%) 0.0 % 0-0 N NEUTROPHIL # (test code = NT#) 13.22 K/mm3 1.8-7.7 H IMMATURE GRANULOCYTE # (test code = IG#) 0.08 x10 3/uL 0-0.03 H LYMPHOCYTE # (test code = LY#) 1.69 K/mm3 1.0-5.0 N MONOCYTE # (test code = MO#) 1.21 K/mm3 0-0.8 H EOSINOPHIL # (test code = EO#) 0.01 K/mm3 0.0-0.5 N BASOPHIL # (test code = BA#) 0.05 K/mm3 0.0-0.2 N NUCLEATED RBC # (test code = NRBC#) 0.00 K/mm3 0.0-0.1 N MANUAL DIFF REQUIRED (test code = MDIFF) NO, ONLY SCAN NEEDED DIFFERENTIAL [id number] 03:10:00* Test Item Value Reference Range Interpretation Comments STAIN ACCEPTABILITY (test code = STN ACCEPTABLE) CABOT RINGS (test code = CAB) MORPHOLOGY COMMENT (test code = MOC) PLATELET ESTIMATE (test code = PLTEST) PLATELET MORPHOLOGY (test code = PLTMORPH) COMPREHENSIVE METABOLIC [id number] 03:05:00* Test Item Value Reference Range Interpretation Comments SODIUM (test code = NA) mmol/L 136-145 POTASSIUM (test code = K) mmol/L 3.5-5.1 CHLORIDE (test code = CL) mmol/L 98-107 CARBON DIOXIDE (test code = CO2) mmol/L 21-32 ANION GAP (test code = GAP) 10-20 GLUCOSE (test code = GLU) mg/dL 74-106 BLOOD UREA NITROGEN (test code = BUN) mg/dL 7-18 GLOMERULAR FILTRATION RATE (test code = GFR) mL/min >=60 CREATININE (test code = CREAT) mg/dL 0.55-1.02 BUN/CREATININE RATIO (test code = BUN/CREA) 10-20 TOTAL PROTEIN (test code = PROT) gram/dL 6.4-8.2 ALBUMIN (test code = ALB) g/dL 3.4-5.0 GLOBULIN (test code = GLOB) gram/dL 2.7-4.2 ALBUMIN/GLOBULIN RATIO (test code = A/G) 0.75-1.50 CALCIUM (test code = CA) mg/dL 8.5-10.1 BILIRUBIN TOTAL (test code = BILT) mg/dL 0.0-1.0 SGOT/AST (test code = AST) IUnit/L 15-37 SGPT/ALT (test code = ALT) IUnit/L 12-78 ALKALINE PHOSPHATASE TOTAL (test code = ALKP) IUnit/L 45-117 [id number] 03:05:00* Test Item Value Reference Range Interpretation Comments PHOSPHORUS (test code = PHOS) mg/dL 2.5-4.9 [id number] 03:05:00* Test Item Value Reference Range Interpretation Comments MAGNESIUM (test code = MAG) mg/dL 1.8-2.4 [id number] 03:05:00* Test Item Value Reference Range Interpretation Comments TROPONIN-I (test code = TROPI) ng/mL 0-0.045 CALCIUM [id number] 03:05:00* Test Item Value Reference Range Interpretation Comments CALCIUM IONIZED (test code = AVTAR) 1.35 mmol/L 1.12-1.32 H [id number] 21:47:00* Test Item Value Reference Range Interpretation Comments TROPONIN-I (test code = TROPI) 0.122 ng/mL 0-0.045 Results called to [id number] by PREM 11/05/19 2147Critical results verified and read back by Nurse? Y 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: COLLECT 3 HOURS AFTER PREVIOUS SAMPLEURINALYSIS [id number] 21:37:00* Test Item Value Reference Range Interpretation Comments UA COLOR (test code = COLU) Light-Yellow YELLOW UA APPEARANCE (test code = APPU) CLEAR CLEAR UA GLUCOSE DIPSTICK (test code = DGLUU) >1000 (4+) mg/dL NEGATIVE UA BILIRUBIN DIPSTICK (test code = BILU) NEGATIVE mg/dL NEGATIVE UA KETONE DIPSTICK (test code = KETU) 20 (1+) mg/dL NEGATIVE A UA SPECIFIC GRAVITY (test code = SGU) 1.040 1.001-1.035 UA BLOOD DIPSTICK (test code = LEATHA) 0.03 mg/dL (Trace) mg/dL NEGATI VE A UA PH DIPSTICK (test code = NOREEN) 6.0 5.0-8.0 UA PROTEIN DIPSTICK (test code = PROU) 20 (Trace) mg/dL NEGATIVE A UA UROBILINIOGEN DIPSTICK (test code = URO) Normal mg/dL NEGATIVE UA NITRITE DIPSTICK (test code = ELLEN) NEGATIVE NEGATIVE UA LEUKOCYTE ESTERASE W REFLEX (test code = LEUUR) 25 Abby/uL (Trace) Abby/uL NEGATIVE A UA WBC (test code = WBCU) 11-20 per HPF 0-5 A UA RBC (test code = RBCU) 6-10 #/HPF 0-5 A UA EPITHELIAL CELLS (test code = EPIU) FEW per HPF FEW UA BACTERIA (test code = BACU) FEW #/HPF NONE A UA MUCUS (test code = MUCU) FEW #/LPF FEW UA AMORPHOUS SEDIMENT (test code = AMORU) FEW #/LPF NONE Urine Source? Clean CatchPROTHROMBIN [id number] 21:31:00* Test Item Value Reference Range Interpretation Comments PROTHROMBIN TIME PATIENT (test code = PTP) 16.0 seconds 9.0-14.0 H INTERNATIONAL NORMAL RATIO (test code = INR) 1.4 0.8-1.2 H The therapeutic range for oral anticoagulant therapy formost indications is an international normalized ratio (INR)of between 2.0 and 3.0. The recommended therapeutic INRrange for various clinical situations is listed below: Clinical Situation INR range Pulmonary e mbolism treatment (2.0-3.0)Venous thrombosis treatmentVenous thrombosis prophylaxis (high risk surgery)Prevention of systemic embolism from: Acute myocardial infarction Valvular heart disease Atrial fibrillation Mechanical prosthetic heart valves (2.5-3.5) THROMBOPLASTIN TIME [id number] 21:31:00* Test Item Value Reference Range Interpretation Comments THROMBOPLASTIN TIME PARTIAL (test code = PTT) 29.6 seconds 23.0-37. 0 N - XR CHEST 1 [id number] 19:16:00 FAX: Qamar Olmstead [place]: B St: ADM FAX: Asmita Walsh MD FAX: Nelida Peck [phone] Name: AROLDO BERRIOS [facility] : 1950 Age/S: 69/F [address] [facility] Unit #: [id number] Loc: [address] [place] [address] Phys: Qamar Lux Acct: [id number] Dis Date: Status: ADM IN ONE #: [phone] Exam Date: 11/05/2019 1858 FAX #: [phone] Reason: cvc placement EXAMS: CPT CODE: [id number] XR CHEST 1 V 87294 EXAM: Chest x- ray, one view; INFORMATION: Line placement, respiratory distress; IMPRESSION: 1. Well-positioned right IJ central line. Its tip is in the cranial aspect of the right atrium. 2. No brian dence of a pneumothorax. 3. Otherwise, no significant change compared w ith the study obtained earlier today. Location code: G W at 1916 Repor gianni and signed by: Chris Yoo M.D. CC: Qamar Pineda; Asmita Lew MD; Nelida Ness MD Technologist: Dewey GARCIA(R) Trnscrd Date/Time/By: 11/05/2019 (1915) : By: Mike Orig Print D/T: S: 11/05/2019 (1918) PAGE 1 Signed Report LACTIC [id number] 17:12:00* Test Item Value Reference Range Interpretation Comments LACTIC ACID (test code = LACT) 1.7 mmol/L 0.4-1.9 N - CT ABD PELVIS W/O [id number] 16:17:00 Name: AROLDO BERRIOS [facility] : 1950 Age/S: 69 / F [address] [facility] Unit #: [id number] Loc: [place] [address] Phys: Gomez Sagastume MD Acct: [id number] Dis Date: Status: ADM IN PHONE #: [phone] Exam Date: 11/05/2019 1556 FAX #: [phone] Reason: AMS, Sepsis EXAMS: CPT CODE: [id number] CT ABD PELVIS W/O CONT [id number] HISTORY: AMS, Sepsis TECHNIQUE: [address] images were obtained through the abdomen and pelvis without contrast. Sagittal and coronal reformatted images were generated. Automated exposure reduction (Auto mA/Smart mA) was utilized in compliance with ACR [employer] with DLP of 630 mGy-cm. COMPARISON: 04/26/19 FINDINGS: Statements: Lack of intravenous contrast limits evaluation of abdominopelvic organs and vasculature. THORACIC: Please refer to separate chest CT report. HEPATOBILIARY: Liver is normal without focal lesion. Gallbladder is normal. No biliary dilation. PANCREAS: Atrophic. SPLEEN: Normal. ADRENALS: Nodular left adrenal thickening is unchanged. GASTROINTE STINAL: Limited evaluation without oral contrast. Enteric tube and PEG tub e positioned within the stomach. Small bowel is unremarkable. Appendix is not visualized. Rectal fecal impaction. GENITOURINARY: Kidneys are normal. No hydronephrosis. Layering hyperdensities within the urinary bladder, po ssible tiny stones or other debris. Uterus and ovaries are unremarkable. VASCULAR: Aortoiliac atherosclerotic vascular calcification without a neurysm. IVC filter. LYMPHATICS: No enlarged lymph nodes by CT size crite sophy. PERITONEUM/OTHER: No intraperitoneal free air. No intraperitoneal james e fluid. BONES/SOFT TISSUES: Degenerative changes of the spine, sacr al iliac joints, and hips. IMPRESSION: No acute findings on noncontrast CT of the abdomen and pelvis. Layering hyperdensities within the urinary bladder, possible tiny stones or other debris. No ureteral calculus or hydronephrosis. PAGE 1 Signed Report (PATRICK NUED) Name: AROLDO BERRIOS [facility] : 1950 Age/S: 69 / F [address] Unit #: [id number] Loc: [place] [address] Phys: Gomez Mcdonald MD Acct: [id number] Dis Date: Status: ADM IN PHON E #: [phone] Exam Date: 11/05/2019 1556 FAX #: [phone] Reason: AMS, Sepsis EXAMS : CPT CODE: [id number] CT ABD PELVIS W/O CONT 56448 <Continued> LOCATION: LP at 1617 Reported and signed by: Kitty Patel D.O. CC: Nelida Ness MD; Gomez Sagastume MD Technologist:Zahraa Metzger RT(R); DEWEY Gould CTDI: DLP: Trnscb Date/Time: 11/05/2019 (1617) [email or web address] Orig Print D/T: S: 11/05/2019 (1619) PAGE 2 Signed Report BASIC METABOLIC [id number] 16:09:00* Test Item Value Reference Range Interpretation Comments SODIUM (test code = NA) 142 mmol/L 136-145 N POTASSIUM (test code = K) 3.8 mmol/L 3.5-5.1 N CHLORIDE (test code = CL) 106.0 mmol/L 98-107 N CARBON DIOXIDE (test code = CO2) 27.0 mmol/L 21-32 N ANION GAP (test code = GAP) 12.8 10-20 N GLUCOSE (test code = GLU) 369 mg/dL 74-106 H BLOOD UREA NITROGEN (test code = BUN) 16 mg/dL 7-18 N GLOMERULAR FILTRATION RATE (test code = GFR) > 60 mL/min >=60 Estimated GFR by using Modified MDRD formula.Chronic kidney disease is defined as either kidney damageor GFR <60 mL/min/1.73 m2 for >3 months. CREATININE (test code = CREAT) 0.50 mg/dL 0.55-1.02 L Note change in reference range due to change in reagent. BUN/CREATININE RATIO (test code = BUN/CREA) 29.2 10-20 H CALCIUM (test code = CA) 9.1 mg/dL 8.5-10.1 N HEPATIC FUNCTION [id number] 16:09:00* Test Item Value Reference Range Interpretation Comments TOTAL PROTEIN (test code = PROT) 7.4 gram/dL 6.4-8.2 N ALBUMIN (test code = ALB) 1.9 g/dL 3.4-5.0 L GLOBULIN (test code = GLOB) 5.5 gram/dL 2.7-4.2 H ALBUMIN/GLOBULIN RATIO (test code = A/G) 0.3 0.75-1.50 L BILIRUBIN TOTAL (test code = BILT) 0.40 mg/dL 0.0-1.0 N BILIRUBIN DIRECT (test code = BILD) 0.16 mg/dL 0.0-0.20 N SGOT/AST (test code = AST) 21 IUnit/L 15-37 N SGPT/ALT (test code = ALT) 37 IUnit/L 12-78 N ALKALINE PHOSPHATASE TOTAL (test code = ALKP) 99 IUnit/L 45-117 N Note change in reference range due to change in reagent. LACTIC DEHYDROGENASE(LDH)2019-11-05 16:09:00* Test Item Value Reference Range Interpretation Comments LACTIC DEHYDROGENASE(LDH) (test code = LDH) 223 IUnit/L 84-246 N [id number] 16:09:00* Test Item Value Reference Range Interpretation Comments LIPASE (test code = LIP) 33 U/L 73.0-393.0 L [id number] 16:09:00* Test Item Value Reference Range Interpretation Comments TROPONIN-I (test code = TROPI) <0.015 ng/mL 0-0.045 N [id number] 16:09:00* Test Item Value Reference Range Interpretation Comments FERRITIN (test code = FAITH) 170 ng/mL 8-388 N - CT CHEST W/O [id number] 16:06:00 Name: AROLDO BERRIOS [facility] : 1950 Age/S: 69 / F [address] Unit #: [id number] Loc: [place] [address] Phys: Nida Barron MD Acct: [id number] Dis Date: Status: ADM IN PHONE #: [phone] Exam Date: 11/05/2019 1553 FAX #: [phone] Reason: SOB EXAMS: CPT CODE: [id number] CT CHEST W/O CONTRAST 83841 HISTORY: Shortness of breath TECHNIQUE: [address] images were obtained through the chest without contrast. Sagittal and coronal reformatted images were generated. Automated exposure reduction (Auto mA/Smart mA) was utilized in compliance with ACR Image Wisely with DLP of 418 mGy-cm. COMPARISON: Chest x- ray from earlier today FINDINGS: Statements: Lack of intravenous contrast limits evaluation of mediastinal contents. Lungs: Patchy bilateral upper lobe perihilar groundglass opacity. Bilateral lower lobe dependent atelectasis. No pleural effusion. Central airways are patent.. ET tube positioned above the carmen. Cardiovascular: Normal heart size. No pericardial effusion. Coronary artery and thoracic aortic vascular calcification. No thoracic aortic aneurysm. Normal caliber pulmonary arteries. Mediastinum: No lymphadenopathy. Visualized thyroid is unremarkable. Normal esophagus. Included upper abdomen: Please refer to separate abdominal CT report. Bones and superficial soft tissues: Degenerative changes of the spine and shoulders. IMPRESSION: Patchy bilateral upper lobe perihilar groundglass opacity. Bilateral l ower lobe dependent atelectasis. LOCATION : LP PAGE 1 Signed Report (CONTINUED) Name: AROLDO BERRIOS [facility] Dianna ast : 1950 Age/S: 69 / F [address] [facility] Unit #: [id number] Loc: [place] [address] Phys: Nida Barron MD Acct: [id number] Dis Date: Status: ADM IN PHONE #: [phone] Exam Date: 11/05/2019 1553 FAX #: [phone] Reason: SOB EXAMS: CPT CODE: [id number] CT CHEST W/O CONTRAST 67507 < Continued> at 1606 Reported and signed by: Kitty Patel D.O. CC: Nida Barron MD; Asmita Lew MD; Nelida Ness MD Technologist:Zahraa Metzger RT(R); DEWEY Gould CTDI: DLP: Trnscb Date/Time: 11/05/2019 (4256) [email or web address] Orig Print D/T: S: 11/05/2019 (8050) PAGE 2 Signed Report B-TYPE NATRIURETIC [id number] 16:04:00* Test Item Value Reference Range Interpretation Comments B-TYPE NATRIURETIC PEPTIDE (test code = BNP) 84.44 pgram/mL 0-100 N BASIC METABOLIC [id number] 16:03:00* Test Item Value Reference Range Interpretation Comments SODIUM (test code = NA) 142 mmol/L 136-145 N POTASSIUM (test code = K) 3.8 mmol/L 3.5-5.1 N CHLORIDE (test code = CL) 106.0 mmol/L 98-107 N CARBON DIOXIDE (test code = CO2) mmol/L 21-32 ANION GAP (test code = GAP) 10-20 GLUCOSE (test code = GLU) mg/dL 74-106 BLOOD UREA NITROGEN (test code = BUN) mg/dL 7-18 GLOMERULAR FILTRATION RATE (test code = GFR) mL/min >=60 CREATININE (test code = CREAT) mg/dL 0.55-1.02 BUN/CREATININE RATIO (test code = BUN/CREA) 10-20 CALCIUM (test code = CA) mg/dL 8.5-10.1 HEPATIC FUNCTION [id number] 16:03:00* Test Item Value Reference Range Interpretation Comments TOTAL PROTEIN (test code = PROT) gram/dL 6.4-8.2 ALBUMIN (test code = ALB) g/dL 3.4-5.0 GLOBULIN (test code = GLOB) gram/dL 2.7-4.2 ALBUMIN/GLOBULIN RATIO (test code = A/G) 0.75-1.50 BILIRUBIN TOTAL (test code = BILT) mg/dL 0.0-1.0 BILIRUBIN DIRECT (test code = BILD) mg/dL 0.0-0.20 SGOT/AST (test code = AST) IUnit/L 15-37 SGPT/ALT (test code = ALT) IUnit/L 12-78 ALKALINE PHOSPHATASE TOTAL (test code = ALKP) IUnit/L 45-117 LACTIC DEHYDROGENASE(LDH)2019-11-05 16:03:00* Test Item Value Reference Range Interpretation Comments LACTIC DEHYDROGENASE(LDH) (test code = LDH) IUnit/L 84-246 [id number] 16:03:00* Test Item Value Reference Range Interpretation Comments LIPASE (test code = LIP) U/L 73.0-393.0 [id number] 16:03:00* Test Item Value Reference Range Interpretation Comments TROPONIN-I (test code = TROPI) ng/mL 0-0.045 [id number] 16:03:00* Test Item Value Reference Range Interpretation Comments FERRITIN (test code = FAITH) ng/mL 8-388 C REACTIVE [id number] 16:03:00* Test Item Value Reference Range Interpretation Comments C REACTIVE PROTEIN (test code = CRP) 18.00 mg/dL 0-0.3 H COVID 19 INHOUSE [id number] 15:57:00* Test Item Value Reference Range Interpretation Comments COVID 19 INHOUSE AG (test code = [id number]) NEGATIVE - CT HEAD/BRAIN W/O [id number] 15:56:00 Name: AROLDO BERRIOS [facility] : 1950 Age/S: 69 / F [address] [facility] Unit #: [id number] Loc: [place] [address] Phys: Gomez Sagastume MD Acct: [id number] Dis Date: Status: ADM IN PHONE #: [phone] Exam Date: 11/05/2019 1551 FAX #: [phone] Reason: AMS, Sepsis EXAMS: CPT CODE: [id number] CT HEAD/BRAIN W/O CONT 23788 HISTORY: AMS, Sepsis TECHNIQUE: Noncontrast 2.[address] of the head. Examination acquired within 24 hours of arrival. Automated exposure control for dose reduction. COMPARISON: Brain MRI 08/01/2016 FINDINGS: No lacerations or contusions of the scalp or facial soft tissues. Calvarium and skull base are intact. No acte or chronic infarct. No effacement of the sulci or arreguin-white matter interface. No acute hemorrhage. No intracranial mass, mass effect, or midline shift. No cortical atrophy. Mild patchy low densities appearance of the pa raventricular region noted consistent with nonspecific white matter diseas e. No hydrocephalus.. No extra-axial fluid collection. Visualized paranasal sinuses are clear. Mastoid air cells and middle ear cavities are clear. Orbital contents are unremarkable. IMPRESSION: 1. No acute abnormalities. 2. Mild chronic microvascular ischemic changes. Location: [facility] E lectronically Signed by Isidro Fu M.D. on 11/05/2019 at 1556 Reported and signed by: Isidro Fu M.D. CC: Nelida Ness MD; Gomez Sagastume MD Technologist:Zahraa Metzger RT(R); DEWEY JOHNSTON DI: DLP: Trnscb Date/Time: 11/05/2019 (1556) [email or web address] Orig Print D/T: S: 11/05/2019 (1600) PAGE 1 Signed Report CBC W/AUTO [id number] 15:38:00 * Test Item Value Reference Range Interpretation Comments WHITE BLOOD CELL (test code = WBC) 17.5 K/mm3 4.5-12.5 H RED BLOOD CELL (test code = RBC) 3.47 mill/mm3 3.7-5.2 L HEMOGLOBIN (test code = HGB) 10.1 gram/dL 11.5-15.5 L HEMATOCRIT (test code = HCT) 32.8 % 36.0-46.0 L MEAN CELL VOLUME (test code = MCV) 94.5 fL 80-98 N MEAN CELL HGB (test code = MCH) 29.1 picogram 27.0-33.0 N MEAN CELL HGB CONCETRATION (test code = MCHC) 30.8 gram/dL 33.0-36. 0 L RED CELL DISTRIBUTION WIDTH (test code = RDW) 17.2 % 11.6-16. 2 H RED CELL DISTRIBUTION WIDTH SD (test code = RDW-SD) 58.4 fL 37 .0-51.0 H PLATELET COUNT (test code = PLT) 483 K/mm3 150-450 H MEAN PLATELET VOLUME (test code = MPV) 10.8 fL 6.7-11.0 N NEUTROPHIL % (test code = NT%) 82.5 % 39.0-69.0 H IMMATURE GRANULOCYTE % (test code = IG%) 0.5 % 0.0-5.0 N LYMPHOCYTE % (test code = LY%) 7.4 % 25.0-55.0 L MONOCYTE % (test code = MO%) 9.2 % 0.0-10.0 N EOSINOPHIL % (test code = EO%) 0.0 % 0.0-5.0 N BASOPHIL % (test code = BA%) 0.4 % 0.0-1.0 N NUCLEATED RBC % (test code = NRBC%) 0.0 % 0-0 N NEUTROPHIL # (test code = NT#) 14.43 K/mm3 1.8-7.7 H IMMATURE GRANULOCYTE # (test code = IG#) 0.09 x10 3/uL 0-0.03 H LYMPHOCYTE # (test code = LY#) 1.29 K/mm3 1.0-5.0 N MONOCYTE # (test code = MO#) 1.60 K/mm3 0-0.8 H EOSINOPHIL # (test code = EO#) 0.00 K/mm3 0.0-0.5 N BASOPHIL # (test code = BA#) 0.07 K/mm3 0.0-0.2 N NUCLEATED RBC # (test code = NRBC#) 0.00 K/mm3 0.0-0.1 N MANUAL DIFF REQUIRED (test code = MDIFF) NO ARTERIAL BLOOD [id number] 15:36:00* Test Item Value Reference Range Interpretation Comments ARTERIAL BLOOD GAS PH (test code = PHA) 7.42 7.35-7.45 N ARTERIAL BLOOD GAS PCO2 (test code = PCO2A) 41.3 mm Hg 35-45 N ARTERIAL BLOOD GAS PO2 (test code = PO2A) 382.9 mmHg 80-100 H BICARBONATE TOTAL HCO3 (test code = HCO3) 26.2 mmol/L 23.0-27.0 N BASE EXCESS (test code = JOANNE) 1.6 mmol/L -3.0-5.0 N ABG O2 SATURATION (test code = SATA) 99.9 % 90.0-98.0 H ABG TYPE (test code = TYPEA) Arterial FIO2 (test code = FIO2A) 100.0 ABG VENT MODE (test code = MODEA) Assist Control ABG VENT RESP RATE (test code = RRA) 14.0 per min ABG TIDAL VOLUME (test code = TVA) 385.0 mL ABG PEEP (test code = PEEPA) 6.0 cmH2O ABG SITE (test code = SITEA) Lt RADIAL ARTERY MODIFIED ALLENS (test code = MODALL) Unable CHECK PERFORMED HEMATOCRIT (test code = HCT/ABG) 34 % 35-47 L TOTAL HGB (test code = THB) 11.5 gram/dL 11.5-15.5 N HGB O2 SAT (test code = HBOSAT) 98.8 % 94.00-98.00 H CARBOXYHEMOGLOBIN (test code = HOHGBT) 0.6 %totalHg 0.5-1.5 N METHEMOGLOBIN (test code = METHGB) 0.5 % 0.0-1.50 N O2 CONTENT (test code = O2CT) 17.0 % vol 18.0-22.0 L - XR CHEST 1 [id number] 15:16:00 FAX: Kyree NessNelida N M [phone] [place]: St: REG FAX: Gomez Sagastume MD Name: AROLDO BERRIOS [facility] : 1950 Age/S: 69/F [address] [facility] Unit #: [id number] Loc: [place] [address] Phys: Gomez Sagastume MD Acct: [id number] Dis Date: Status: REG ER PHONE #: [phone] Exam Date: 11/05/2019 1507 FAX #: [phone] Reason: SHORTNESS OF BREATH EXAMS: CPT CODE: [id number] XR CHEST 1 V 36301 REASON FOR EXAM: SHORTNESS OF BREATH Exam Order Date: 11/05/2019 2:17 PM Ordering MMook: Gomez Sagastume MD PROCEDURE: - XR CHEST 1 V COMPARISON: Chest x-ray 09/19/2019 FINDINGS: Lines/Tubes: Endotracheal tube terminates 1 cm above the inferior carmen. Enteric tube course below the diaphragm and out of the tiudp-ki-tbda. Patchy perihilar airspace opacities. There is no pleural effusion or pneumothorax. Pulmonary vascularity is within normal limits. Cardiomediastinal silhouette and mediastinal contours are unchanged when accounting for differences in technique. Musculoskeletal structures and visualized portions of the upper abdomen are also unchanged. IMPRESSION: Endotracheal tube terminates 1 cm above the inferior carmen. Patchy per ihilar airspace opacities are not significantly changed. Locat ion: [facility] at 1516 Reported and signed by: Isidro Fu M.D. CC: Nelida Ness MD; Gomez Sagastume MD Technologist: CAROL RODRÍGUEZ RT(R)(CT); Lillian Barbour RT(R) Trnndrd Date/Time/By: 11/05/2019 (7 250) : By: [email or web address] Orig Print D/T: S: 11/05/2019 (6030) PAGE 1 Signed Report - XR CHEST 1 [id number] 00:35:00 FAX: Nelida Peck [phone] [place]: St: REG FAX: Terence Clayton [phone] Name: AROLDO BERRIOS [facility] : 1950 Age/S: 69/F [address] [place] [address] Unit #: [id number] Loc: [place] [address] Phys: Terence Castro RESUME WRITER Acct: [id number] Dis Date: Status: REG ER PHONE #: [phone] Exam Date: 09/19/2019 0000 FAX #: [phone] Reason: cough h/o pna EXAMS: CPT CODE: [id number] XR CHEST 1 V 95013 Study: - XR CHEST 1 V 09/19/2019 11:12 PM Patient Name: AROLDO BERRIOS MR: [id number] : 1950; Age: 69 years y/o F emale Ordering Physician: Terence Castro NP Clinical Indication: cough h/o pna Comparison: 04/30/2019 FIN DINGS LUNGS: Increasing hypoinflation associated with a mildly flako vated right hemidiaphragm and ill-defined bilateral basilar opacities suggesting subsegmental atelectasis or pneumonia. No pleural effusion or pneumothorax. HEART AND MEDIASTINUM: Heart size at the upper l imits of normal accentuated by hypoinflation. LINES: None. OSSEOUS STRUCTURES: No fracture, dislocation, or suspicious focal osseous lesion. OTHER: None. IMPRESSI ON: Increasing hypoinflation associated with a mildly elevated right hemidiaphragm and ill-defined bilateral basilar opacities suggest ing subsegmental atelectasis or pneumonia. Heart size at the upper limits of normal accentuated by hypoinflation. SL: TPAINTER-H PAGE 1 Signed Report (CONTINUED) FAX: Prasanna Peck [phone] [place]: St: REG FAX: Terence Clayton [phone] Name: AROLDO BERRIOS [facility] : 1950 Age/S: 69/F [address] [place] [address] Unit #: [id number] Loc: [place] [address] Phys: Terence Castro NP Acct: [id number] Dis Date: Status: REG ER PHONE #: [phone] Exam Date: 09/19/2019 0000 FAX #: [phone] Reason: cough h/o pna EXAMS: CPT CODE: [id number] XR CHEST 1 V 23804 <Continued> at 0035 Reported and signed by: Cory Sheridan M.D. CC: Prasanna Ness MD; Terence Castro NP Technologist: Elsa Stephens ack, RT(R) Trnscrd Date/Time/By: 09/20/2019 (0035 ) : By: [email or web address] Orig Print D/T: S: 09/20/2019 (0038) PAGE 2 Signed Report BASIC METABOLIC [id number] 23:09:00* Test Item Value Reference Range Interpretation Comments SODIUM (test code = NA) 136 mEq/L 134-147 N POTASSIUM (test code = K) 4.1 mEq/L 3.4-5.0 N CHLORIDE (test code = CL) 103 mEq/L 100-108 N CARBON DIOXIDE (test code = CO2) 29 mEq/L 21-33 N ANION GAP (test code = GAP) 8 0-20 N GLUCOSE (test code = GLU) 127 mg/dL 70-110 H BLOOD UREA NITROGEN (test code = BUN) 20 mg/dL 7-18 H GLOMERULAR FILTRATION RATE (test code = GFR) 71.5 80-90 L Units of measure = ml/min/1.73 m2 CREATININE (test code = CREAT) 0.8 mg/dL 0.6-1.3 N CALCIUM (test code = CA) 8.2 mg/dL 8.0-10.5 N HEPATIC FUNCTION [id number] 23:09:00* Test Item Value Reference Range Interpretation Comments TOTAL PROTEIN (test code = PROT) 6.8 g/dL 6.4-8.2 N ALBUMIN (test code = ALB) 2.70 g/dL 3.4-5.0 L BILIRUBIN TOTAL (test code = BILT) 0.2 MG/DL <1.5 N BILIRUBIN DIRECT (test code = BILD) < 0.10 MG/DL 0.0-0.30 N BILIRUBIN INDIRECT (test code = BILIND) 0.10 MG/DL SGOT/AST (test code = AST) 20 IUnit/L 15-37 N SGPT/ALT (test code = ALT) 24 IUnit/L 15-65 N ALKALINE PHOSPHATASE TOTAL (test code = ALKP) 67 IUnit/L 20-125 N [id number] 23:09:00* Test Item Value Reference Range Interpretation Comments LIPASE (test code = LIP) 89 IUnit/L 73-393 N [id number] 23:09:00* Test Item Value Reference Range Interpretation Comments TROPONIN-I (test code = TROPI) < 0.015 ng/mL 0.000-0.045 N Negative: <= 0.045 Positive: >= 0.046 Correlation with serial results, other cardiac markers andclinical findings is necessary to determine the clinicalsignificance of this result. Results using different methodologies should not be comparedto one another as quantitative results may vary by method. BASIC METABOLIC [id number] 23:05:00* Test Item Value Reference Range Interpretation Comments SODIUM (test code = NA) mEq/L 134-147 POTASSIUM (test code = K) mEq/L 3.4-5.0 CHLORIDE (test code = CL) mEq/L 100-108 CARBON DIOXIDE (test code = CO2) mEq/L 21-33 ANION GAP (test code = GAP) 0-20 GLUCOSE (test code = GLU) mg/dL 70-110 BLOOD UREA NITROGEN (test code = BUN) mg/dL 7-18 GLOMERULAR FILTRATION RATE (test code = GFR) 80-90 CREATININE (test code = CREAT) mg/dL 0.6-1.3 CALCIUM (test code = CA) mg/dL 8.0-10.5 HEPATIC FUNCTION [id number] 23:05:00* Test Item Value Reference Range Interpretation Comments TOTAL PROTEIN (test code = PROT) g/dL 6.4-8.2 ALBUMIN (test code = ALB) g/dL 3.4-5.0 BILIRUBIN TOTAL (test code = BILT) MG/DL <1.5 BILIRUBIN DIRECT (test code = BILD) MG/DL 0.0-0.30 SGOT/AST (test code = AST) IUnit/L 15-37 SGPT/ALT (test code = ALT) IUnit/L 15-65 ALKALINE PHOSPHATASE TOTAL (test code = ALKP) IUnit/L 20-125 [id number] 23:05:00* Test Item Value Reference Range Interpretation Comments LIPASE (test code = LIP) IUnit/L 73-393 [id number] 23:05:00* Test Item Value Reference Range Interpretation Comments TROPONIN-I (test code = TROPI) < 0.015 ng/mL 0.000-0.045 N Negative: <= 0.045 Positive: >= 0.046 Correlation with serial results, other cardiac markers andclinical findings is necessary to determine the clinicalsignificance of this result. Results using different methodologies should not be comparedto one another as quantitative results may vary by method. CBC W/AUTO [id number] 21:56:00* Test Item Value Reference Range Interpretation Comments WHITE BLOOD CELL (test code = WBC) 5.05 x10 3/uL 4.5-11.0 N RED BLOOD CELL (test code = RBC) 3.88 x10 6/uL 3.54-5.02 N HEMOGLOBIN (test code = HGB) 11.4 g/dL 11.0-15.0 N HEMATOCRIT (test code = HCT) 35.8 % 33.0-45.0 N MEAN CELL VOLUME (test code = MCV) 92.3 fL 81.0-99.0 N MEAN CELL HGB (test code = MCH) 29.4 pg 27.0-33.0 N MEAN CELL HGB CONCETRATION (test code = MCHC) 31.8 g/dL 33.0-37. 0 L RED CELL DISTRIBUTION WIDTH CV (test code = RDW) 14.5 % 11.5- 14.5 N RED CELL DISTRIBUTION WIDTH SD (test code = RDW-SD) 49.3 fL 37 .0-54.0 N PLATELET COUNT (test code = PLT) 203 x10 3/uL 150-400 N MEAN PLATELET VOLUME (test code = MPV) 10.9 fL 7.0-9.0 H NEUTROPHIL % (test code = NT%) 49.1 % 56.0-77.0 L IMMATURE GRANULOCYTE % (test code = IG%) 0.2 % 0.0-2.0 N LYMPHOCYTE % (test code = LY%) 33.3 % 14.0-32.0 H MONOCYTE % (test code = MO%) 17.2 % 4.8-9.0 H EOSINOPHIL % (test code = EO%) 0.0 % 0.3-3.7 L BASOPHIL % (test code = BA%) 0.2 % 0.0-2.0 N NUCLEATED RBC % (test code = NRBC%) 0.0 % 0-0 N NEUTROPHIL # (test code = NT#) 2.48 x10 3/uL 2.0-7.6 N IMMATURE GRANULOCYTE # (test code = IG#) 0.01 x10 3/uL 0.00-0.03 N LYMPHOCYTE # (test code = LY#) 1.68 x10 3/uL 1.0-3.8 N MONOCYTE # (test code = MO#) 0.87 x10 3/uL 0.1-0.8 H EOSINOPHIL # (test code = EO#) 0.00 x10 3/uL 0.0-0.2 N BASOPHIL # (test code = BA#) 0.01 x10 3/uL 0.0-0.2 N NUCLEATED RBC # (test code = NRBC#) 0.00 x10 3/uL 0.0-0.1 N MANUAL DIFF REQUIRED (test code = MDIFF) NO [id number] 12:46:00* Test Item Value Reference Range Interpretation Comments GLUBED (test code = GLUBED) 204 mg/dL 74-106 H Performed by certified oil refinery operator at [facility] [place] [id number] 08:16:00* Test Item Value Reference Range Interpretation Comments GLUBED (test code = GLUBED) 237 mg/dL 74-106 H Performed by certified oil refinery operator at [facility] [place] [id number] 21:26:00* Test Item Value Reference Range Interpretation Comments GLUBED (test code = GLUBED) 211 mg/dL 74-106 H Performed by certified oil refinery operator at [facility] [place] - XR CHEST 1 [id number] 17:43:00 FAX: Harris Davison MD [place]: B St: ADM FAX: Radha Teague NP [phone] FAX: Nelida Peck [phone] Name: AROLDO BERRIOS [facility] : 1950 Age/S: 68/F [address] Unit #: [id number] Loc: V.4036 [place] [address] Phys: Radha Teague RESUME WRITER Acct: [id number] Dis Date: Status: ADM IN ONE #: [phone] Exam Date: 04/30/2019 1635 FAX #: [phone] Reason: COUGH EXAMS: CPT CODE: [id number] XR CHEST 1 V 16034 HISTORY: Cough. COMPARISON: April 29, 2019. Location: . No acute infiltrates, effusion or congestion is noted. Markedly suboptimal inspiration with crowding of bronchovascular markings and eleva gianni right hemidiaphragm. Bibasal subsegmental atelectasis. Cardiomegaly. IMPRESSION: No acute infiltrates, effusion or congestion. Suboptimal inspiration with dependent changes. at 1743 Reported and signed by: Thiago Watkins M.D. CC: Harris Julian; Radha Teague NP; Nelida Ness MD Technologist: SHAI NOONAN, RT(R); ... Trnscrd Date/Time/By: 04/30/2019 ( 7263) : By: [email or web address] Orig Print D/T: S: 04/30/2019 (4588) PAGE 1 Signed Report [id number] 15:58:00* Test Item Value Reference Range Interpretation Comments GLUBED (test code = GLUBED) 233 mg/dL 74-106 H Performed by certified oil refinery operator at [facility] [place] [id number] 11:33:00* Test Item Value Reference Range Interpretation Comments GLUBED (test code = GLUBED) 245 mg/dL 74-106 H Performed by certified oil refinery operator at [facility] [place] [id number] 07:27:00* Test Item Value Reference Range Interpretation Comments GLUBED (test code = GLUBED) 224 mg/dL 74-106 H Performed by certified oil refinery operator at [facility], [place] BASIC METABOLIC [id number] 07:05:00* Test Item Value Reference Range Interpretation Comments SODIUM (test code = NA) 139 mmol/L 136-145 N POTASSIUM (test code = K) 4.0 mmol/L 3.5-5.1 N CHLORIDE (test code = CL) 108.0 mmol/L 98-107 H CARBON DIOXIDE (test code = CO2) 24.0 mmol/L 21-32 N ANION GAP (test code = GAP) 11.0 10-20 N GLUCOSE (test code = GLU) 239 mg/dL 74-106 H BLOOD UREA NITROGEN (test code = BUN) 19 mg/dL 7-18 H GLOMERULAR FILTRATION RATE (test code = GFR) > 60 mL/min >=60 Estimated GFR by using Modified MDRD formula.Chronic kidney disease is defined as either kidney damageor GFR <60 mL/min/1.73 m2 for >3 months. CREATININE (test code = CREAT) 0.60 mg/dL 0.55-1.02 N Note change in reference range due to change in reagent. BUN/CREATININE RATIO (test code = BUN/CREA) 31.7 10-20 H CALCIUM (test code = CA) 8.7 mg/dL 8.5-10.1 N BASIC METABOLIC [id number] 06:55:00* Test Item Value Reference Range Interpretation Comments SODIUM (test code = NA) 139 mmol/L 136-145 N POTASSIUM (test code = K) 4.0 mmol/L 3.5-5.1 N CHLORIDE (test code = CL) 108.0 mmol/L 98-107 H CARBON DIOXIDE (test code = CO2) mmol/L 21-32 ANION GAP (test code = GAP) 10-20 GLUCOSE (test code = GLU) mg/dL 74-106 BLOOD UREA NITROGEN (test code = BUN) mg/dL 7-18 GLOMERULAR FILTRATION RATE (test code = GFR) mL/min >=60 CREATININE (test code = CREAT) mg/dL 0.55-1.02 BUN/CREATININE RATIO (test code = BUN/CREA) 10-20 CALCIUM (test code = CA) mg/dL 8.5-10.1 CBC W/AUTO [id number] 06:42:00* Test Item Value Reference Range Interpretation Comments WHITE BLOOD CELL (test code = WBC) 7.4 K/mm3 4.5-12.5 N RED BLOOD CELL (test code = RBC) 4.04 mill/mm3 3.7-5.2 N HEMOGLOBIN (test code = HGB) 11.8 gram/dL 11.5-15.5 N HEMATOCRIT (test code = HCT) 35.8 % 36.0-46.0 L MEAN CELL VOLUME (test code = MCV) 88.6 fL 80-98 N MEAN CELL HGB (test code = MCH) 29.2 picogram 27.0-33.0 N MEAN CELL HGB CONCETRATION (test code = MCHC) 33.0 gram/dL 33.0-36. 0 N RED CELL DISTRIBUTION WIDTH (test code = RDW) 13.4 % 11.6-16. 2 N RED CELL DISTRIBUTION WIDTH SD (test code = RDW-SD) 43.8 fL 37 .0-51.0 N PLATELET COUNT (test code = PLT) 253 K/mm3 150-450 N MEAN PLATELET VOLUME (test code = MPV) 10.4 fL 6.7-11.0 N NEUTROPHIL % (test code = NT%) 53.6 % 39.0-69.0 N IMMATURE GRANULOCYTE % (test code = IG%) 0.3 % 0.0-5.0 N LYMPHOCYTE % (test code = LY%) 30.7 % 25.0-55.0 N MONOCYTE % (test code = MO%) 10.1 % 0.0-10.0 H EOSINOPHIL % (test code = EO%) 4.6 % 0.0-5.0 N BASOPHIL % (test code = BA%) 0.7 % 0.0-1.0 N NUCLEATED RBC % (test code = NRBC%) 0.0 % 0-0 N NEUTROPHIL # (test code = NT#) 3.97 K/mm3 1.8-7.7 N IMMATURE GRANULOCYTE # (test code = IG#) 0.02 x10 3/uL 0-0.03 N LYMPHOCYTE # (test code = LY#) 2.27 K/mm3 1.0-5.0 N MONOCYTE # (test code = MO#) 0.75 K/mm3 0-0.8 N EOSINOPHIL # (test code = EO#) 0.34 K/mm3 0.0-0.5 N BASOPHIL # (test code = BA#) 0.05 K/mm3 0.0-0.2 N NUCLEATED RBC # (test code = NRBC#) 0.00 K/mm3 0.0-0.1 N [id number] 21:06:00* Test Item Value Reference Range Interpretation Comments GLUBED (test code = GLUBED) 201 mg/dL 74-106 H Performed by certified oil refinery operator at [facility] [place] [id number] 16:41:00* Test Item Value Reference Range Interpretation Comments GLUBED (test code = GLUBED) 159 mg/dL 74-106 H Performed by certified oil refinery operator at [facility] [place] - XR CHEST 1 [id number] 15:35:00 FAX: Harris Davison MD [place]: B St: ADM FAX: Radha Teague NP [phone] FAX: Nelida Peck [phone] Name: AROLDO BERRIOS [facility] : 1950 Age/S: 68/F [address] [facility] Unit #: [id number] Loc: V.4036 [place] [address] Phys: Radah Teague NP Acct: [id number] Dis Date: Status: ADM IN ONE #: [phone] Exam Date: 04/29/2019 1522 FAX #: [phone] Reason: cough EXAMS: CPT CODE: [id number] XR CHEST 1 V 78329 HISTORY: Cough. COMPARISON: April 27, 2019. Location: [facility]. Suboptimal inspiration. Dependent changes with elevated right he midiaphragm. Bibasal subsegmental atelectasis. Cardiomegaly. IMP RESSION: No acute infiltrates, effusion or congestion. at 1535 Reported and signed by: Thiago Watkins M.D. CC: Harris Julian; Radha Teague NP; Nelida Ness MD Technologist: JANKI NOONAN, RT(R); Norma Diaz RT(R) Trnscrd Date/Time/By: 020 (1531) : By: [email or web address] Orig Print D/T: S: 04/29/2019 (5340) PAGE 1 Signed Report [id number] 12:21:00* Test Item Value Reference Range Interpretation Comments GLUBED (test code = GLUBED) 201 mg/dL 74-106 H Performed by certified oil refinery operator at [facility] [place] [id number] 08:26:00* Test Item Value Reference Range Interpretation Comments GLUBED (test code = GLUBED) 239 mg/dL 74-106 H Performed by certified oil refinery operator at [facility] [place] [id number] 21:23:00* Test Item Value Reference Range Interpretation Comments GLUBED (test code = GLUBED) 185 mg/dL 74-106 H Performed by certified oil refinery operator at [facility] [place] [id number] 16:23:00* Test Item Value Reference Range Interpretation Comments GLUBED (test code = GLUBED) 248 mg/dL 74-106 H Performed by certified oil refinery operator at [facility] [place] [id number] 12:53:00* Test Item Value Reference Range Interpretation Comments GLUBED (test code = GLUBED) 218 mg/dL 74-106 H Performed by certified oil refinery operator at [facility] [place] [id number] 08:02:00* Test Item Value Reference Range Interpretation Comments GLUBED (test code = GLUBED) 207 mg/dL 74-106 H Performed by certified oil refinery operator at [facility] [place] [id number] 20:49:00* Test Item Value Reference Range Interpretation Comments GLUBED (test code = GLUBED) 223 mg/dL 74-106 H Performed by certified oil refinery operator at [facility] [place] [id number] 16:21:00* Test Item Value Reference Range Interpretation Comments GLUBED (test code = GLUBED) 296 mg/dL 74-106 H Performed [facility] certified oil refinery operator [facility] [place] - XR SWLW FUNC W/C [id number] 16:10:00 FAX: Harris Davison MD [place]: B St: ADM FAX: Radha Teague NP [phone] FAX: Nelida Peck [phone] Name: AROLDO BERRIOS [facility] : 1950 Age/S: 68/F [address] [facility] Unit #: [id number] Loc: V.4036 [place] [address] Phys: Radha Teague NP Acct: [id number] Dis Date: Status: ADM IN ONE #: [phone] Exam Date: 04/27/2019 1523 FAX #: [phone] Reason: DYSPHAGIA EXAMS: CPT CODE: [id number] XR SWLW [facility] W/C V 25096 EXAM: Modified barium swallow; INFORMATION: Dysphagia; IMPRESSIO N: 1. No evidence of aspiration. 2. Flash laryngeal penetration with thin liquid administered via straw. Fluoroscopy T rl: 76.1 sec CAK : 0.88 mGy Location code: [facility] at 1610 R eported and signed by: Chris Yoo M.D. CC: Debi Julian; Radha Teague NP; Nelida Ness MD Technologist: Norma Diaz RT(R) Trnscrd Date/Time/By: 04/27/2019 (1610) : By: Mike Orig Print D/T: S: 04/27/2019 (5163) PAGE 1 Signed Report - XR CHEST 2 [id number] 15:05:00 FAX: Lan Oh MD [phone] [place]: St: ADM FAX: Harris Davison MD FAX: Nelida Peck [phone] Name: AROLDO BERRIOS [facility] : 1950 Age/S: 68/F [address] [facility] Unit #: [id number] Loc: V.4036 [place] [address] Phys: Lan Rachel MD Acct: [id number] Dis Date: Status: ADM IN ONE #: [phone] Exam Date: 04/27/2019 1456 FAX #: [phone] Reason: Basilar infiltrate EXAMS: CPT CODE: [id number] XR CHEST 2 V 82905 HISTORY: Basil ar infiltrates. Location: [facility]. COMPARISON: April 26, [address] of abdomen and pelvis from previous day as well. AP and lateral view of the chest: Markedly suboptimal inspira tion with crowding of bronchovascular markings and subsegmental atelectasi s. Markedly elevated hemidiaphragm especially on the right due to markedly distended colon. Vague right basal infiltrate. DJD of the dorsal spine. IMPRESSION: Vague right basal infiltrate. Bibasal subsegmental atelectasis with markedly suboptimal inspiration. at 1500 Reported and signed by: Thiago Watkins M.D. CC: Lan Rachel MD; Harris Julian; Nelida Ness MD Technologist: SHAI NOONAN, RT(R); HOLLAND PICKERING RT(R) Trnndrd Date/Time/By: 04/27/2019 ( 5170) : By: [email or web address] Orig Print D/T: S: 04/27/2019 (9979) PAGE 1 Signed Report COMPREHENSIVE METABOLIC [id number] 14:57:00* Test Item Value Reference Range Interpretation Comments SODIUM (test code = NA) 139 mmol/L 136-145 N POTASSIUM (test code = K) 4.0 mmol/L 3.5-5.1 N CHLORIDE (test code = CL) 105.0 mmol/L 98-107 N CARBON DIOXIDE (test code = CO2) 26.0 mmol/L 21-32 N ANION GAP (test code = GAP) 12.0 10-20 N GLUCOSE (test code = GLU) 230 mg/dL 74-106 H BLOOD UREA NITROGEN (test code = BUN) 14 mg/dL 7-18 N GLOMERULAR FILTRATION RATE (test code = GFR) > 60 mL/min >=60 Estimated GFR by using Modified MDRD formula.Chronic kidney disease is defined as either kidney damageor GFR <60 mL/min/1.73 m2 for >3 months. CREATININE (test code = CREAT) 0.60 mg/dL 0.55-1.02 N Note change in reference range due to change in reagent. BUN/CREATININE RATIO (test code = BUN/CREA) 23.3 10-20 H TOTAL PROTEIN (test code = PROT) 6.9 gram/dL 6.4-8.2 N ALBUMIN (test code = ALB) 2.7 g/dL 3.4-5.0 L GLOBULIN (test code = GLOB) 4.2 gram/dL 2.7-4.2 N ALBUMIN/GLOBULIN RATIO (test code = A/G) 0.6 0.75-1.50 L CALCIUM (test code = CA) 8.7 mg/dL 8.5-10.1 N BILIRUBIN TOTAL (test code = BILT) 0.40 mg/dL 0.0-1.0 N SGOT/AST (test code = AST) 18 IUnit/L 15-37 N SGPT/ALT (test code = ALT) 19 IUnit/L 12-78 N ALKALINE PHOSPHATASE TOTAL (test code = ALKP) 89 IUnit/L 45-117 N Note change in reference range due to change in reagent. CBC W/AUTO [id number] 14:38:00* Test Item Value Reference Range Interpretation Comments WHITE BLOOD CELL (test code = WBC) 12.1 K/mm3 4.5-12.5 N RED BLOOD CELL (test code = RBC) 4.02 mill/mm3 3.7-5.2 N HEMOGLOBIN (test code = HGB) 11.6 gram/dL 11.5-15.5 RESULT VERIFIED BY REPEAT ANALYSIS HEMATOCRIT (test code = HCT) 36.0 % 36.0-46.0 N MEAN CELL VOLUME (test code = MCV) 89.6 fL 80-98 N MEAN CELL HGB (test code = MCH) 28.9 picogram 27.0-33.0 N MEAN CELL HGB CONCETRATION (test code = MCHC) 32.2 gram/dL 33.0-36. 0 L RED CELL DISTRIBUTION WIDTH (test code = RDW) 13.9 % 11.6-16. 2 N RED CELL DISTRIBUTION WIDTH SD (test code = RDW-SD) 45.7 fL 37 .0-51.0 N PLATELET COUNT (test code = PLT) 249 K/mm3 150-450 N MEAN PLATELET VOLUME (test code = MPV) 10.6 fL 6.7-11.0 N NEUTROPHIL % (test code = NT%) 66.3 % 39.0-69.0 N IMMATURE GRANULOCYTE % (test code = IG%) 0.4 % 0.0-5.0 N LYMPHOCYTE % (test code = LY%) 21.4 % 25.0-55.0 L MONOCYTE % (test code = MO%) 8.8 % 0.0-10.0 N EOSINOPHIL % (test code = EO%) 2.6 % 0.0-5.0 N BASOPHIL % (test code = BA%) 0.5 % 0.0-1.0 N NUCLEATED RBC % (test code = NRBC%) 0.0 % 0-0 N NEUTROPHIL # (test code = NT#) 8.01 K/mm3 1.8-7.7 H IMMATURE GRANULOCYTE # (test code = IG#) 0.05 x10 3/uL 0-0.03 H LYMPHOCYTE # (test code = LY#) 2.59 K/mm3 1.0-5.0 N MONOCYTE # (test code = MO#) 1.06 K/mm3 0-0.8 H EOSINOPHIL # (test code = EO#) 0.31 K/mm3 0.0-0.5 N BASOPHIL # (test code = BA#) 0.06 K/mm3 0.0-0.2 N NUCLEATED RBC # (test code = NRBC#) 0.00 K/mm3 0.0-0.1 N MANUAL DIFF REQUIRED (test code = MDIFF) NO [id number] 12:00:00* Test Item Value Reference Range Interpretation Comments GLUBED (test code = GLUBED) 241 mg/dL 74-106 H Performed [facility] certified [facility] refinery operator [facility] [id number] 08:10:00* Test Item Value Reference Range Interpretation Comments GLUBED (test code = GLUBED) 149 mg/dL 74-106 H Performed by certified oil refinery operator [facility] [place] [id number] 06:17:00* Test Item Value Reference Range Interpretation Comments GLUBED (test code = GLUBED) 150 mg/dL 74-106 H Performed by certified oil refinery operator at [facility] [place] [id number] 21:38:00* Test Item Value Reference Range Interpretation Comments GLUBED (test code = GLUBED) 142 mg/dL 74-106 H Performed [facility] certified oil refinery operator [facility] [id number] 17:47:00* Test Item Value Reference Range Interpretation Comments GLUBED (test code = GLUBED) 141 mg/dL 74-106 H Performed by certified oil refinery operator at [facility] [place] [id number] 12:35:00* Test Item Value Reference Range Interpretation Comments GLUBED (test code = GLUBED) 189 mg/dL 74-106 H Performed by certified oil refinery operator at [facility] [place] LACTIC [id number] 12:24:00* Test Item Value Reference Range Interpretation Comments LACTIC ACID (test code = LACT) 1.5 mmol/L 0.4-1.9 N LACTIC [id number] 12:24:00* Test Item Value Reference Range Interpretation Comments LACTIC ACID (test code = LACT) 1.4 mmol/L 0.4-1.9 N LACTIC [id number] 07:14:00* Test Item Value Reference Range Interpretation Comments LACTIC ACID (test code = LACT) 2.1 mmol/L 0.4-1.9 Results called to [id number] by [email or web address] 04/26/19 0714Critical results verified and read back by Nurse? Y URINALYSIS [id number] 03:42:00* Test Item Value Reference Range Interpretation Comments UA COLOR (test code = COLU) Light-Yellow YELLOW UA APPEARANCE (test code = APPU) CLEAR CLEAR UA GLUCOSE DIPSTICK (test code = DGLUU) 200 (2+) mg/dL NEGATIVE A UA BILIRUBIN DIPSTICK (test code = BILU) NEGATIVE mg/dL NEGATIVE UA KETONE DIPSTICK (test code = KETU) TRACE mg/dL NEGATIVE A UA SPECIFIC GRAVITY (test code = SGU) >1.050 1.001-1.035 UA BLOOD DIPSTICK (test code = LEATHA) 0.2 mg/dL (2+) mg/dL NEGATIVE A UA PH DIPSTICK (test code = NOREEN) 6.0 5.0-8.0 UA PROTEIN DIPSTICK (test code = PROU) 20 (Trace) mg/dL NEGATIVE A UA UROBILINIOGEN DIPSTICK (test code = URO) Normal mg/dL NEGATIVE UA NITRITE DIPSTICK (test code = ELLEN) POSITIVE NEGATIVE A UA LEUKOCYTE ESTERASE W REFLEX (test code = LEUUR) 250 Abby/u L (2+) Abby/uL NEGATIVE A UA WBC (test code = WBCU) 21-50 per HPF 0-5 A UA RBC (test code = RBCU) 6-10 #/HPF 0-5 A UA EPITHELIAL CELLS (test code = EPIU) FEW per HPF FEW UA BACTERIA (test code = BACU) NONE SEEN #/HPF NONE UA MUCUS (test code = MUCU) FEW #/LPF FEW Urine Source? Clean Catch- CT ABD PELVIS [id number] 01:38:00 Name: AROLDO BERRIOS [facility] : 1950 Age/S: 68 / F [address] Unit #: [id number] Loc: [place] [address] Phys: Xu Anderson MD Acct: [id number] Di s Date: Status: REG ER PHONE #: Exam Date: 04/26/2019 0120 FAX #: [phone] Reason: CODE SEPSIS EXAMS: CPT CODE: [id number] CT ABD PELVIS W/CONT 36997 EXAM: - CT ABD PELVIS W/ CONT HISTORY: Vomiting. TECHNIQUE: Axial tomograms t hrough the abdomen and pelvis were obtained after intravenous contrast. Coronal and sagittal reformatted images are provided. This exam was performed according to our departmental dose-optimization program, which i ncludes automated exposure control, adjustment of the mA and/or kV accordi ng to patient size and/or use of iterative reconstruction technique. FINDINGS: Right hemidiaphragm is elevated. There is trace atelectasis at right lung base. There is a patchy infiltrate at ri ght lung base in posterior costophrenic sulcus. No effusion. The stomach is minimally distended with gas. Nonspecific finding. There is minimal gas-filled small bowel. The appendix is not clearly identified. There is minimal fecal material throughout the length of the colon. A loop of colon is interposed between the liver and the right diaphragm. There is no free intraperitoneal air or fluid collection. The liver, spleen, pancreas, adrenal glands and kidneys demonstrate no significant abnormalities. There is no adenopathy or free fluid. 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 There is calcified plaque involving the abdominal aorta and it's major branching vessels. Limited exam due to motion artifact. IMPRESSION: Patchy infiltrate at right lung base. PAGE 1 Signed Report (CONTINUED) Name: AROLDO BERRIOS [place] : 1950 Age/S: 68 / F [address] [facility] Unit #: [id number] Loc: [place], [place] [address] Phys: Cory Anderson MD Acct: [id number] Dis Date: Status: REG ER PHONE #: [phone] Exam Date: 04/26/2019 0120 FAX #: [phone] Reason: CODE SEPSIS EXAMS: CPT CODE: [id number] CT ABD PELVIS W/CONT 49605 < Continued> There is gaseous distention of stomach. Nonspecific finding. Degenerative changes of spine. at 0138 Reported and signed by: Jim Chavarria MD CC: Cory Anderson MD; Nelida Ness MD Technologist:Maninder Lowry RT(R) CTDI: DLP: Trnscb Date/Time: 04/26/2019 (0138) [email or web address] Orig Print D/T: S: 04/26/2019 (014) PAGE 2 Signed Report CBC W/MANUAL [id number] 01:11:00* Test Item Value Reference Range Interpretation Comments WHITE BLOOD CELL (test code = WBC) 13.5 K/mm3 4.5-12.5 H RED BLOOD CELL (test code = RBC) 4.79 mill/mm3 3.7-5.2 N HEMOGLOBIN (test code = HGB) 13.7 gram/dL 11.5-15.5 N HEMATOCRIT (test code = HCT) 44.0 % 36.0-46.0 N MEAN CELL VOLUME (test code = MCV) 91.9 fL 80-98 N MEAN CELL HGB (test code = MCH) 28.6 picogram 27.0-33.0 N MEAN CELL HGB CONCETRATION (test code = MCHC) 31.1 gram/dL 33.0-36. 0 L RED CELL DISTRIBUTION WIDTH (test code = RDW) 13.9 % 11.6-16. 2 N RED CELL DISTRIBUTION WIDTH SD (test code = RDW-SD) 47.4 fL 37 .0-51.0 N PLATELET COUNT (test code = PLT) 269 K/mm3 150-450 N MEAN PLATELET VOLUME (test code = MPV) 10.4 fL 6.7-11.0 N NEUTROPHIL % (test code = NT%) 78.0 % 39.0-69.0 H IMMATURE GRANULOCYTE % (test code = IG%) 0.4 % 0.0-5.0 N LYMPHOCYTE % (test code = LY%) 14.3 % 25.0-55.0 L MONOCYTE % (test code = MO%) 6.7 % 0.0-10.0 N EOSINOPHIL % (test code = EO%) 0.2 % 0.0-5.0 N BASOPHIL % (test code = BA%) 0.4 % 0.0-1.0 N NUCLEATED RBC % (test code = NRBC%) 0.0 % 0-0 N NEUTROPHIL # (test code = NT#) 10.51 K/mm3 1.8-7.7 H IMMATURE GRANULOCYTE # (test code = IG#) 0.05 x10 3/uL 0-0.03 H LYMPHOCYTE # (test code = LY#) 1.93 K/mm3 1.0-5.0 N MONOCYTE # (test code = MO#) 0.90 K/mm3 0-0.8 H EOSINOPHIL # (test code = EO#) 0.03 K/mm3 0.0-0.5 N BASOPHIL # (test code = BA#) 0.06 K/mm3 0.0-0.2 N NUCLEATED RBC # (test code = NRBC#) 0.00 K/mm3 0.0-0.1 N MANUAL DIFF REQUIRED (test code = MDIFF) DIFF NEEDED STAIN ACCEPTABILITY (test code = STN ACCEPTABLE) STAIN ACCEPTABLE TOTAL CELLS COUNTED (test code = TCC) 114 #CELLS SEGMENTED NEUTROPHILS (test code = SEG) 76.3 % 39-69 H BAND NEUTROPHIL (test code = BAND) 6.1 % 0-10 N LYMPHOCYTE (test code = LYMPH) 8.8 % 25-55 L REACTIVE LYMPH (test code = RELYMPH) 0 % MONOCYTE (test code = MON) 7.9 % 0-10 N EOSINOPHIL (test code = EOS) 0.9 % 0.0-5.0 N BASOPHIL (test code = BASO) 0 % 0-1.0 N METAMYELOCYTE (test code = META) 0 % 0-0 N MYELOCYTE (test code = MYELO) 0 % 0.0-0.0 N PROMYELOCYTE (test code = PROM) 0 % 0-0 N POIKILOCYTOSIS (test code = POIK) 2+ ANISOCYTOSIS (test code = ANISO) 1+ BRODIE CELLS (test code = BRODIE) 2+ NONE MORPHOLOGY COMMENT (test code = MOC) TEST NOT PERFORMED PLATELET ESTIMATE (test code = PLTEST) ADEQUATE PLATELET MORPHOLOGY (test code = PLTMORPH) NORMAL IMMATURE FORMS (test code = IMMAT) 0 % 0-0 N LACTIC [id number] 00:59:00* Test Item Value Reference Range Interpretation Comments LACTIC ACID (test code = LACT) 5.1 mmol/L 0.4-1.9 HH Results called to [id number] by LO 04/26/19 0058Critical results verified and read back by Nurse? Y BASIC METABOLIC [id number] 00:42:00* Test Item Value Reference Range Interpretation Comments SODIUM (test code = NA) 136 mmol/L 136-145 N POTASSIUM (test code = K) 4.6 mmol/L 3.5-5.1 N CHLORIDE (test code = CL) 100.0 mmol/L 98-107 N CARBON DIOXIDE (test code = CO2) 26.0 mmol/L 21-32 N ANION GAP (test code = GAP) 14.6 10-20 N GLUCOSE (test code = GLU) 286 mg/dL 74-106 H BLOOD UREA NITROGEN (test code = BUN) 19 mg/dL 7-18 H GLOMERULAR FILTRATION RATE (test code = GFR) 55 mL/min >=60 Estimated GFR by using Modified MDRD formula.Chronic kidney disease is defined as either kidney damageor GFR <60 mL/min/1.73 m2 for >3 months. CREATININE (test code = CREAT) 1.00 mg/dL 0.55-1.02 N Note change in reference range due to change in reagent. BUN/CREATININE RATIO (test code = BUN/CREA) 19.0 10-20 N CALCIUM (test code = CA) 9.6 mg/dL 8.5-10.1 N HEPATIC FUNCTION [id number] 00:42:00* Test Item Value Reference Range Interpretation Comments TOTAL PROTEIN (test code = PROT) 8.7 gram/dL 6.4-8.2 H ALBUMIN (test code = ALB) 3.7 g/dL 3.4-5.0 N GLOBULIN (test code = GLOB) 5.0 gram/dL 2.7-4.2 H ALBUMIN/GLOBULIN RATIO (test code = A/G) 0.7 0.75-1.50 L BILIRUBIN TOTAL (test code = BILT) 0.30 mg/dL 0.0-1.0 N BILIRUBIN DIRECT (test code = BILD) 0.14 mg/dL 0.0-0.20 N SGOT/AST (test code = AST) 15 IUnit/L 15-37 N SGPT/ALT (test code = ALT) 21 IUnit/L 12-78 N ALKALINE PHOSPHATASE TOTAL (test code = ALKP) 115 IUnit/L 45-117 N Note change in reference range due to change in reagent. [id number] 00:42:00* Test Item Value Reference Range Interpretation Comments LIPASE (test code = LIP) 131 U/L 73.0-393.0 N [id number] 00:42:00* Test Item Value Reference Range Interpretation Comments TROPONIN-I (test code = TROPI) <0.015 ng/mL 0-0.045 N CBC W/MANUAL [id number] 00:38:00* Test Item Value Reference Range Interpretation Comments WHITE BLOOD CELL (test code = WBC) 13.5 K/mm3 4.5-12.5 H RED BLOOD CELL (test code = RBC) 4.79 mill/mm3 3.7-5.2 N HEMOGLOBIN (test code = HGB) 13.7 gram/dL 11.5-15.5 N HEMATOCRIT (test code = HCT) 44.0 % 36.0-46.0 N MEAN CELL VOLUME (test code = MCV) 91.9 fL 80-98 N MEAN CELL HGB (test code = MCH) 28.6 picogram 27.0-33.0 N MEAN CELL HGB CONCETRATION (test code = MCHC) 31.1 gram/dL 33.0-36. 0 L RED CELL DISTRIBUTION WIDTH (test code = RDW) 13.9 % 11.6-16. 2 N RED CELL DISTRIBUTION WIDTH SD (test code = RDW-SD) 47.4 fL 37 .0-51.0 N PLATELET COUNT (test code = PLT) 269 K/mm3 150-450 N MEAN PLATELET VOLUME (test code = MPV) 10.4 fL 6.7-11.0 N NEUTROPHIL % (test code = NT%) 78.0 % 39.0-69.0 H IMMATURE GRANULOCYTE % (test code = IG%) 0.4 % 0.0-5.0 N LYMPHOCYTE % (test code = LY%) 14.3 % 25.0-55.0 L MONOCYTE % (test code = MO%) 6.7 % 0.0-10.0 N EOSINOPHIL % (test code = EO%) 0.2 % 0.0-5.0 N BASOPHIL % (test code = BA%) 0.4 % 0.0-1.0 N NUCLEATED RBC % (test code = NRBC%) 0.0 % 0-0 N NEUTROPHIL # (test code = NT#) 10.51 K/mm3 1.8-7.7 H IMMATURE GRANULOCYTE # (test code = IG#) 0.05 x10 3/uL 0-0.03 H LYMPHOCYTE # (test code = LY#) 1.93 K/mm3 1.0-5.0 N MONOCYTE # (test code = MO#) 0.90 K/mm3 0-0.8 H EOSINOPHIL # (test code = EO#) 0.03 K/mm3 0.0-0.5 N BASOPHIL # (test code = BA#) 0.06 K/mm3 0.0-0.2 N NUCLEATED RBC # (test code = NRBC#) 0.00 K/mm3 0.0-0.1 N MANUAL DIFF REQUIRED (test code = MDIFF) DIFF NEEDED STAIN ACCEPTABILITY (test code = STN ACCEPTABLE) TOTAL CELLS COUNTED (test code = TCC) #CELLS SEGMENTED NEUTROPHILS (test code = SEG) % 39-69 LYMPHOCYTE (test code = LYMPH) % 25-55 MONOCYTE (test code = MON) % 0-10 EOSINOPHIL (test code = EOS) % 0.0-5.0 CABOT RINGS (test code = CAB) MORPHOLOGY COMMENT (test code = MOC) PLATELET ESTIMATE (test code = PLTEST) PLATELET MORPHOLOGY (test code = PLTMORPH) CBC W/MANUAL [id number] 00:38:00* Test Item Value Reference Range Interpretation Comments WHITE BLOOD CELL (test code = WBC) 13.5 K/mm3 4.5-12.5 H RED BLOOD CELL (test code = RBC) 4.79 mill/mm3 3.7-5.2 N HEMOGLOBIN (test code = HGB) 13.7 gram/dL 11.5-15.5 N HEMATOCRIT (test code = HCT) 44.0 % 36.0-46.0 N MEAN CELL VOLUME (test code = MCV) 91.9 fL 80-98 N MEAN CELL HGB (test code = MCH) 28.6 picogram 27.0-33.0 N MEAN CELL HGB CONCETRATION (test code = MCHC) 31.1 gram/dL 33.0-36. 0 L RED CELL DISTRIBUTION WIDTH (test code = RDW) 13.9 % 11.6-16. 2 N RED CELL DISTRIBUTION WIDTH SD (test code = RDW-SD) 47.4 fL 37 .0-51.0 N PLATELET COUNT (test code = PLT) 269 K/mm3 150-450 N MEAN PLATELET VOLUME (test code = MPV) 10.4 fL 6.7-11.0 N NEUTROPHIL % (test code = NT%) 78.0 % 39.0-69.0 H IMMATURE GRANULOCYTE % (test code = IG%) 0.4 % 0.0-5.0 N LYMPHOCYTE % (test code = LY%) 14.3 % 25.0-55.0 L MONOCYTE % (test code = MO%) 6.7 % 0.0-10.0 N EOSINOPHIL % (test code = EO%) 0.2 % 0.0-5.0 N BASOPHIL % (test code = BA%) 0.4 % 0.0-1.0 N NUCLEATED RBC % (test code = NRBC%) 0.0 % 0-0 N NEUTROPHIL # (test code = NT#) 10.51 K/mm3 1.8-7.7 H IMMATURE GRANULOCYTE # (test code = IG#) 0.05 x10 3/uL 0-0.03 H LYMPHOCYTE # (test code = LY#) 1.93 K/mm3 1.0-5.0 N MONOCYTE # (test code = MO#) 0.90 K/mm3 0-0.8 H EOSINOPHIL # (test code = EO#) 0.03 K/mm3 0.0-0.5 N BASOPHIL # (test code = BA#) 0.06 K/mm3 0.0-0.2 N NUCLEATED RBC # (test code = NRBC#) 0.00 K/mm3 0.0-0.1 N MANUAL DIFF REQUIRED (test code = MDIFF) DIFF NEEDED STAIN ACCEPTABILITY (test code = STN ACCEPTABLE) TOTAL CELLS COUNTED (test code = TCC) #CELLS SEGMENTED NEUTROPHILS (test code = SEG) % 39-69 LYMPHOCYTE (test code = LYMPH) % 25-55 MONOCYTE (test code = MON) % 0-10 EOSINOPHIL (test code = EOS) % 0.0-5.0 MORPHOLOGY COMMENT (test code = MOC) PLATELET ESTIMATE (test code = PLTEST) PLATELET MORPHOLOGY (test code = PLTMORPH) CBC W/MANUAL [id number] 00:38:00* Test Item Value Reference Range Interpretation Comments WHITE BLOOD CELL (test code = WBC) 13.5 K/mm3 4.5-12.5 H RED BLOOD CELL (test code = RBC) 4.79 mill/mm3 3.7-5.2 N HEMOGLOBIN (test code = HGB) 13.7 gram/dL 11.5-15.5 N HEMATOCRIT (test code = HCT) 44.0 % 36.0-46.0 N MEAN CELL VOLUME (test code = MCV) 91.9 fL 80-98 N MEAN CELL HGB (test code = MCH) 28.6 picogram 27.0-33.0 N MEAN CELL HGB CONCETRATION (test code = MCHC) 31.1 gram/dL 33.0-36. 0 L RED CELL DISTRIBUTION WIDTH (test code = RDW) 13.9 % 11.6-16. 2 N RED CELL DISTRIBUTION WIDTH SD (test code = RDW-SD) 47.4 fL 37 .0-51.0 N PLATELET COUNT (test code = PLT) 269 K/mm3 150-450 N MEAN PLATELET VOLUME (test code = MPV) 10.4 fL 6.7-11.0 N NEUTROPHIL % (test code = NT%) 78.0 % 39.0-69.0 H IMMATURE GRANULOCYTE % (test code = IG%) 0.4 % 0.0-5.0 N LYMPHOCYTE % (test code = LY%) 14.3 % 25.0-55.0 L MONOCYTE % (test code = MO%) 6.7 % 0.0-10.0 N EOSINOPHIL % (test code = EO%) 0.2 % 0.0-5.0 N BASOPHIL % (test code = BA%) 0.4 % 0.0-1.0 N NUCLEATED RBC % (test code = NRBC%) 0.0 % 0-0 N NEUTROPHIL # (test code = NT#) 10.51 K/mm3 1.8-7.7 H IMMATURE GRANULOCYTE # (test code = IG#) 0.05 x10 3/uL 0-0.03 H LYMPHOCYTE # (test code = LY#) 1.93 K/mm3 1.0-5.0 N MONOCYTE # (test code = MO#) 0.90 K/mm3 0-0.8 H EOSINOPHIL # (test code = EO#) 0.03 K/mm3 0.0-0.5 N BASOPHIL # (test code = BA#) 0.06 K/mm3 0.0-0.2 N NUCLEATED RBC # (test code = NRBC#) 0.00 K/mm3 0.0-0.1 N MANUAL DIFF REQUIRED (test code = MDIFF) DIFF NEEDED STAIN ACCEPTABILITY (test code = STN ACCEPTABLE) TOTAL CELLS COUNTED (test code = TCC) #CELLS SEGMENTED NEUTROPHILS (test code = SEG) % 39-69 LYMPHOCYTE (test code = LYMPH) % 25-55 MONOCYTE (test code = MON) % 0-10 MORPHOLOGY COMMENT (test code = MOC) PLATELET ESTIMATE (test code = PLTEST) PLATELET MORPHOLOGY (test code = PLTMORPH) CBC W/AUTO [id number] 00:37:00* Test Item Value Reference Range Interpretation Comments WHITE BLOOD CELL (test code = WBC) K/mm3 4.5-12.5 RED BLOOD CELL (test code = RBC) mill/mm3 3.7-5.2 HEMOGLOBIN (test code = HGB) 13.7 gram/dL 11.5-15.5 N HEMATOCRIT (test code = HCT) 44.0 % 36.0-46.0 N MEAN CELL VOLUME (test code = MCV) fL 80-98 MEAN CELL HGB (test code = MCH) picogram 27.0-33.0 MEAN CELL HGB CONCETRATION (test code = MCHC) gram/dL 33.0-36. 0 RED CELL DISTRIBUTION WIDTH (test code = RDW) % 11.6-16. 2 RED CELL DISTRIBUTION WIDTH SD (test code = RDW-SD) fL 37 .0-51.0 PLATELET COUNT (test code = PLT) K/mm3 150-450 MEAN PLATELET VOLUME (test code = MPV) fL 6.7-11.0 NEUTROPHIL % (test code = NT%) % 39.0-69.0 IMMATURE GRANULOCYTE % (test code = IG%) % 0.0-5.0 LYMPHOCYTE % (test code = LY%) % 25.0-55.0 MONOCYTE % (test code = MO%) % 0.0-10.0 EOSINOPHIL % (test code = EO%) % 0.0-5.0 BASOPHIL % (test code = BA%) % 0.0-1.0 NEUTROPHIL # (test code = NT#) K/mm3 1.8-7.7 LYMPHOCYTE # (test code = LY#) K/mm3 1.0-5.0 MONOCYTE # (test code = MO#) K/mm3 0-0.8 EOSINOPHIL # (test code = EO#) K/mm3 0.0-0.5 BASOPHIL # (test code = BA#) K/mm3 0.0-0.2 CBC W/MANUAL [id number] 00:37:00* Test Item Value Reference Range Interpretation Comments WHITE BLOOD CELL (test code = WBC) 13.5 K/mm3 4.5-12.5 H RED BLOOD CELL (test code = RBC) 4.79 mill/mm3 3.7-5.2 N HEMOGLOBIN (test code = HGB) 13.7 gram/dL 11.5-15.5 N HEMATOCRIT (test code = HCT) 44.0 % 36.0-46.0 N MEAN CELL VOLUME (test code = MCV) 91.9 fL 80-98 N MEAN CELL HGB (test code = MCH) 28.6 picogram 27.0-33.0 N MEAN CELL HGB CONCETRATION (test code = MCHC) 31.1 gram/dL 33.0-36. 0 L RED CELL DISTRIBUTION WIDTH (test code = RDW) 13.9 % 11.6-16. 2 N RED CELL DISTRIBUTION WIDTH SD (test code = RDW-SD) 47.4 fL 37 .0-51.0 N PLATELET COUNT (test code = PLT) 269 K/mm3 150-450 N MEAN PLATELET VOLUME (test code = MPV) 10.4 fL 6.7-11.0 N NEUTROPHIL % (test code = NT%) 78.0 % 39.0-69.0 H IMMATURE GRANULOCYTE % (test code = IG%) 0.4 % 0.0-5.0 N LYMPHOCYTE % (test code = LY%) 14.3 % 25.0-55.0 L MONOCYTE % (test code = MO%) 6.7 % 0.0-10.0 N EOSINOPHIL % (test code = EO%) 0.2 % 0.0-5.0 N BASOPHIL % (test code = BA%) 0.4 % 0.0-1.0 N NUCLEATED RBC % (test code = NRBC%) 0.0 % 0-0 N NEUTROPHIL # (test code = NT#) 10.51 K/mm3 1.8-7.7 H IMMATURE GRANULOCYTE # (test code = IG#) 0.05 x10 3/uL 0-0.03 H LYMPHOCYTE # (test code = LY#) 1.93 K/mm3 1.0-5.0 N MONOCYTE # (test code = MO#) 0.90 K/mm3 0-0.8 H EOSINOPHIL # (test code = EO#) 0.03 K/mm3 0.0-0.5 N BASOPHIL # (test code = BA#) 0.06 K/mm3 0.0-0.2 N NUCLEATED RBC # (test code = NRBC#) 0.00 K/mm3 0.0-0.1 N MANUAL DIFF REQUIRED (test code = MDIFF) DIFF NEEDED STAIN ACCEPTABILITY (test code = STN ACCEPTABLE) TOTAL CELLS COUNTED (test code = TCC) #CELLS SEGMENTED NEUTROPHILS (test code = SEG) % 39-69 LYMPHOCYTE (test code = LYMPH) % 25-55 MONOCYTE (test code = MON) % 0-10 EOSINOPHIL (test code = EOS) % 0.0-5.0 CABOT RINGS (test code = CAB) MORPHOLOGY COMMENT (test code = MOC) PLATELET ESTIMATE (test code = PLTEST) PLATELET MORPHOLOGY (test code = PLTMORPH) CBC W/MANUAL [id number] 00:37:00* Test Item Value Reference Range Interpretation Comments WHITE BLOOD CELL (test code = WBC) 13.5 K/mm3 4.5-12.5 H RED BLOOD CELL (test code = RBC) 4.79 mill/mm3 3.7-5.2 N HEMOGLOBIN (test code = HGB) 13.7 gram/dL 11.5-15.5 N HEMATOCRIT (test code = HCT) 44.0 % 36.0-46.0 N MEAN CELL VOLUME (test code = MCV) 91.9 fL 80-98 N MEAN CELL HGB (test code = MCH) 28.6 picogram 27.0-33.0 N MEAN CELL HGB CONCETRATION (test code = MCHC) 31.1 gram/dL 33.0-36. 0 L RED CELL DISTRIBUTION WIDTH (test code = RDW) 13.9 % 11.6-16. 2 N RED CELL DISTRIBUTION WIDTH SD (test code = RDW-SD) 47.4 fL 37 .0-51.0 N PLATELET COUNT (test code = PLT) 269 K/mm3 150-450 N MEAN PLATELET VOLUME (test code = MPV) 10.4 fL 6.7-11.0 N NEUTROPHIL % (test code = NT%) 78.0 % 39.0-69.0 H IMMATURE GRANULOCYTE % (test code = IG%) 0.4 % 0.0-5.0 N LYMPHOCYTE % (test code = LY%) 14.3 % 25.0-55.0 L MONOCYTE % (test code = MO%) 6.7 % 0.0-10.0 N EOSINOPHIL % (test code = EO%) 0.2 % 0.0-5.0 N BASOPHIL % (test code = BA%) 0.4 % 0.0-1.0 N NUCLEATED RBC % (test code = NRBC%) 0.0 % 0-0 N NEUTROPHIL # (test code = NT#) 10.51 K/mm3 1.8-7.7 H IMMATURE GRANULOCYTE # (test code = IG#) 0.05 x10 3/uL 0-0.03 H LYMPHOCYTE # (test code = LY#) 1.93 K/mm3 1.0-5.0 N MONOCYTE # (test code = MO#) 0.90 K/mm3 0-0.8 H EOSINOPHIL # (test code = EO#) 0.03 K/mm3 0.0-0.5 N BASOPHIL # (test code = BA#) 0.06 K/mm3 0.0-0.2 N NUCLEATED RBC # (test code = NRBC#) 0.00 K/mm3 0.0-0.1 N MANUAL DIFF REQUIRED (test code = MDIFF) DIFF NEEDED STAIN ACCEPTABILITY (test code = STN ACCEPTABLE) TOTAL CELLS COUNTED (test code = TCC) #CELLS SEGMENTED NEUTROPHILS (test code = SEG) % 39-69 LYMPHOCYTE (test code = LYMPH) % 25-55 MONOCYTE (test code = MON) % 0-10 EOSINOPHIL (test code = EOS) % 0.0-5.0 CABOT RINGS (test code = CAB) MORPHOLOGY COMMENT (test code = MOC) PLATELET ESTIMATE (test code = PLTEST) PLATELET MORPHOLOGY (test code = PLTMORPH) BASIC METABOLIC [id number] 00:33:00* Test Item Value Reference Range Interpretation Comments SODIUM (test code = NA) 136 mmol/L 136-145 N POTASSIUM (test code = K) 4.6 mmol/L 3.5-5.1 N CHLORIDE (test code = CL) 100.0 mmol/L 98-107 N CARBON DIOXIDE (test code = CO2) mmol/L 21-32 ANION GAP (test code = GAP) 10-20 GLUCOSE (test code = GLU) mg/dL 74-106 BLOOD UREA NITROGEN (test code = BUN) mg/dL 7-18 GLOMERULAR FILTRATION RATE (test code = GFR) mL/min >=60 CREATININE (test code = CREAT) mg/dL 0.55-1.02 BUN/CREATININE RATIO (test code = BUN/CREA) 10-20 CALCIUM (test code = CA) mg/dL 8.5-10.1 HEPATIC FUNCTION [id number] 00:33:00* Test Item Value Reference Range Interpretation Comments TOTAL PROTEIN (test code = PROT) gram/dL 6.4-8.2 ALBUMIN (test code = ALB) g/dL 3.4-5.0 GLOBULIN (test code = GLOB) gram/dL 2.7-4.2 ALBUMIN/GLOBULIN RATIO (test code = A/G) 0.75-1.50 BILIRUBIN TOTAL (test code = BILT) mg/dL 0.0-1.0 BILIRUBIN DIRECT (test code = BILD) mg/dL 0.0-0.20 SGOT/AST (test code = AST) IUnit/L 15-37 SGPT/ALT (test code = ALT) IUnit/L 12-78 ALKALINE PHOSPHATASE TOTAL (test code = ALKP) IUnit/L 45-117 [id number] 00:33:00* Test Item Value Reference Range Interpretation Comments LIPASE (test code = LIP) U/L 73.0-393.0 [id number] 00:33:00* Test Item Value Reference Range Interpretation Comments TROPONIN-I (test code = TROPI) ng/mL 0-0.045 - XR CHEST 1 [id number] 00:29:00 FAX: Cory Anderson MD [place]: B St: [facility] FAX: Nelida Peck [phone] Name: AROLDO BERRIOS [facility] : 1950 Age/S: 68/F [address] Unit #: [id number] Loc: [place] [address] Phys: Cory Anderson MD Acct: [id number] Dis Date: Status: REG ER PHONE #: [phone] Exam Date: 04/26/20192 FAX #: [phone] Reason: CODE SEPSIS EXAMS: CPT CODE: [id number] XR CHEST 1 V 71289 EXAM: - XR CHEST 1 V HISTORY: Vomiting. COMPARISON: August 01, 2016. FINDINGS: Single AP view of the chest is provided. Heart size and vascularity are within normal limits. Chronic elevation right hemidiaphragm associated with right basilar atelectasis. There is no focal consolidation, pleural effusion, pneumothorax, or acute osseous abnormality. The stomach is filled w ith gas. IMPRESSION: Chronic elevation of the right jorge diaphragm and trace right basilar atelectasis. Gas-filled stomac h. at 0029 Reported and signed by: Jim Chavarria MD CC: Cory Anderson MD; Nelida Ness MD Technologist: Elijah Escalona RT(R); VALENTINA FRANCIS RT(R) Trnscrd Date/Time/By: 04/26 (0029) : By: [email or web address] Orig Print D/T: S: 04/26/2019 (0032) PAGE 1 Signed Report - XR SMALL [id number] 13:27:00 FAX: Nelida Peck [phone] [place]: B St: DEP Name: AROLDO ROCKWELL [facility] : [birth year] Age/S: 67/F [address] Unit #: [id number] Loc: [place] [address] Phys: Nelida Ness MD Acct: [id number] Dis Date: Status: DEP CLI PHONE #: [phone] Exam Date: 05/09/2018 1430 FAX #: [phone] Reason: Report Has Been Amended EXAMS: CPT CODE: [id number] XR SMALL INTESTINE 18296 Addendum - 05/13/2018 SIGNED 05/13/2018 ADDENDUM: [id number] RAD/SMLINTEST ADDENDUM: Fluoroscopy Time: 126 sec CAK : 165.251 mGy at 1327 Reported and signed by: Chris Yoo M.D. Transcribed: 05/13/2018 (1327) JulianoGRW Report EXAM: Upper GI double contrast study and bowel fo llow-through study; INFORMATION: Recurrent vomiting; FINDINGS: There is unimpaired passage of contrast material through the esophagus. Esophagus shows tertiary contractions; otherwise, smooth co ntours; no mucosal abnormalities. Stomach shows smooth contours. Evaluatio n of the mucosa is limited due to retained food and large amount of mucus. No obvious ulcerations or erosions. The duodenum as well as jejunal and ileal loops are unremarkable. The ascending colon is opacified after 2 hours and 45 minutes. IMPRESSION: 1. Tertiary contract ions of the esophagus; otherwise, esophagus, stomach and duodenum are un remarkable. 2. Normal small bowel follow-through study. at 0417 Reported and signed by: Chris Yoo M.D. PAGE 1 Signed Report (CONTINUED) FAX: Nelida Peck [phone] [place]: St: DEP Name: AROLDO BERRIOS [facility] : 1950 Age/S: 67/F [address] Unit #: [id number] Loc: [place] [address] Ph ys: Nelida Ness MD Acct: [id number] Dis Date: Status: DEP CLI PHONE #: [phone] Exam Date: 05/09/2018 1430 FAX #: [phone] Reason: Report Has Been Amended EXAMS: CPT CODE: [id number] XR SMALL INTESTINE 60447 <Continued> CC: Nelida Ness MD Technologist: RT KIYA(R) Trnscrd Date/Time/By: 05/09/2018 (7456) : By: JulianoGRW Orig Print D/T: S: 05/09/2018 (0079) PAGE 2 Signed Report - XR UGI W/AIR W/O [id number] 13:27:00 FAX: Nelida Peck [phone] [place]: B St: DEP Name: AROLDO ROCKWELL [facility] : [birth year] Age/S: 67/F [address] Unit #: [id number] Loc: [place] [address] Phys: Nelida Ness MD Acct: [id number] Dis Date: Status: DEP CLI PHONE #: [phone] Exam Date: 05/09/2018 1430 FAX #: [phone] Reason: RECURRENT VOMITING Report Has Been Amended EXAMS: CPT CODE: [id number] XR UGI W/AIR W/O KUB 31892 Addendum - 05/13/2018 SIGNED 05/13/2018 ADDENDUM: [id number] RAD/[id number] ADDENDUM: Fluoroscopy Time: 126 sec CAK : 165.251 mGy at 4229 Reported and signed by: Chris Yoo M.D. Transcribed: 05/13/2018 (8377) JulianoGRW Report EXAM: Upper GI double contrast study and bowel f ollow-through study; INFORMATION: Recurrent vomiting; FINDINGS: There is unimpaired passage of contrast material through the esophagus. Esophagus shows tertiary contractions; otherwise, smooth c ontours; no mucosal abnormalities. Stomach shows smooth contours. Evaluati on of the mucosa is limited due to retained food and large amount of mucus . No obvious ulcerations or erosions. The duodenum as well as jejuna l and ileal loops are unremarkable. The ascending colon is opacified after 2 hours and 45 minutes. IMPRESSION: 1. Tertiary contrac tions of the esophagus; otherwise, esophagus, stomach and duodenum are u nremarkable. 2. Normal small bowel follow-through study. at 1545 Reported and signed by : Chris Yoo M.D. PAGE 1 Signed Report (CONTINUED) FAX: Nelida Peck [phone] [place]: B St: DEP Name: AROLDO BERRIOS [facility] : 1950 Age/S: 67/F [address] Unit #: [id number] Loc: [place] [address] P hys: Nelida Ness MD Acct: [id number] [id number] Dis Date: Status: DEP CLI PHONE #: [phone] Exam Date: 05/09/2018 1430 FAX #: [phone] Reason: RECURRENT VOMITING Report Has Been Amended EXAMS: CPT CODE: [id number] XR UGI W/AIR W/O KUB 13087 <Continued> CC: Nelida Ness MD Technologist: HOLLAND PICKERING RT(R) Trnndrd Date/Time/By: 05/09/2018 (7377) : By: Mike Orig Print D/T: S: 05/09/2018 (2971) PAGE 2 Signed Report - XR SMALL [id number] 15:45:00 FAX: Nelida Peck [phone] [place]: St: REG Name: AROLDO ROCKWELL [facility] : [birth year] Age/S: 67/F [address] [facility] Unit #: [id number] Loc: [place] [address] Phys: Nelida Ness MD Acct: [id number] Dis Date: Status: REG CLI PHONE #: [phone] Exam Date: 05/09/2018 1430 FAX #: [phone] Reason: EXAMS: CPT CODE: [id number] XR SMALL INTESTINE 90756 EXAM: Upper GI double contrast study and bowel follow-through study; INFORMATION: Recurrent vomiting; FINDINGS: There is unimpaired passage of contrast material through the esophagus. Esophagus shows tertiary contractions; otherwise, smooth contours; no mucosal abnormalities. Stomach shows smooth cont ours. Evaluation of the mucosa is limited due to retained food and large a mount of mucus. No obvious ulcerations or erosions. The duodenum as well as jejunal and ileal loops are unremarkable. The ascending colon is o pacified after 2 hours and 45 minutes. IMPRESSION: 1. Te rtiary contractions of the esophagus; otherwise, esophagus, stomach and duodenum are unremarkable. 2. Normal small bowel follow-through study. at 9469 Reported and signed by: Chris Yoo M.D. CC: Nelida Ness MD Technologist: HOLLAND PICKERING RT(R) Trnndrd Date/Time/By: 05/09/2018 (7898) : By: JulianoGRW Orig Print D/T: S: 05/09/2018 (0685) PAGE 1 Signed Report - XR UGI W/AIR W/O [id number] 15:45:00 FAX: Nelida Peck [phone] [place]: St: REG Name: AROLDO ROCKWELL [facility] : [birth year] Age/S: 67/F [address] [facility] Unit #: [id number] Loc: [place] [address] Phys: Nelida Ness MD Acct: [id number] Dis Date: Status: REG CLI PHONE #: [phone] Exam Date: 05/09/2018 1430 FAX #: [phone] Reason: RECURRENT VOMITING EXAMS: CPT CODE: [id number] XR UGI W/AIR W/O KUB 14662 EXAM: Upper GI double contrast study and bowel follow-through study; INFORMATION: Recurrent vomiting; FINDINGS: There is unimpaired passage of contrast material through the esophagus. Esophagus shows tertiary contractions; otherwise, smooth contours; no mucosal abnormalities. Stomach shows smooth cont ours. Evaluation of the mucosa is limited due to retained food and large a mount of mucus. No obvious ulcerations or erosions. The duodenum as well as jejunal and ileal loops are unremarkable. The ascending colon is o pacified after 2 hours and 45 minutes. IMPRESSION: 1. Te rtiary contractions of the esophagus; otherwise, esophagus, stomach and duodenum are unremarkable. 2. Normal small bowel follow-through study. at 1549 Reported and signed by: Chris Yoo M.D. CC: Nelida Ness MD Technologist: HOLLAND PICKERING RT(R) Trnscrd Date/Time/By: 05/09/2018 (3636) : By: JulianoGRW Orig Print D/T: S: 05/09/2018 (0784) PAGE 1 Signed Report BASIC METABOLIC [id number] 09:13:00* Test Item Value Reference Range Interpretation Comments SODIUM (test code = NA) 142 mEq/L 134-147 N POTASSIUM (test code = K) 4.8 mEq/L 3.4-5.0 N CHLORIDE (test code = CL) 107 mEq/L 100-108 N CARBON DIOXIDE (test code = CO2) 32 mEq/L 21-33 N ANION GAP (test code = GAP) 8 0-20 N GLUCOSE (test code = GLU) 106 mg/dL 70-110 N BLOOD UREA NITROGEN (test code = BUN) 12 mg/dL 7-18 N GLOMERULAR FILTRATION RATE (test code = GFR) 100.3 80-90 H Units of measure = ml/min/1.73 m2 CREATININE (test code = CREAT) 0.6 mg/dL 0.6-1.3 N CALCIUM (test code = CA) 8.6 mg/dL 8.0-10.5 N [facility] PHONE# for [phone] or [phone] PHONE , FAX#
[2019-11-12] MEDS ORDERED: CELEXA20 MG PEG (22:15)
[2019-11-12] MEDS ORDERED: NAMENDA5 MG PEG (22:15)
[2019-11-12] MEDS ORDERED: ALBUTEROL0.63 MG/3 (22:15)
[2019-11-12] MEDS ORDERED: LEVETIRACETAM500 MG PEG (22:15)
[2019-11-12] MEDS ORDERED: OMEPRAZOLE40 MG (22:15)
[2019-11-12] MEDS ORDERED: LACTULOSE SYRUP 20 GM/30 ML UDC PEG PRN (22:15)
[2019-11-12] MEDS ORDERED: DIVALPROEX SODIUM SCH (22:15)
[2019-11-12] MEDS ORDERED: ELIQUIS5 M1 PEG (22:15)
[2019-11-12] MEDS ORDERED: ATORVASTATIN CA20 MG PEG (22:15)
[2019-11-12] MEDS ORDERED: DEPAKOTE125 MG (22:15)
[2019-11-12] MEDS ORDERED: TYLENOL325 M2 PEG (22:15)
[2019-11-12] MEDS ORDERED: LACTULOSE20 GM/30 M PEG (22:15)
[2019-11-12] MEDS ORDERED: LEVETIRACETAM 500 MG TAB PEG SCH (22:15)
[2019-11-12] MEDS ORDERED: MIDODRINE HCL5 MG PEG (22:15)
[2019-11-12] MEDS ORDERED: LEVETIRACETAM (22:15)
[2019-11-12] MEDS ORDERED: ASPIRIN CHEW81 MG PO (22:15)
[2019-11-12] MEDS ORDERED: MEMANTINE 10 MG TAB PEG SCH (22:15)
[2019-11-12] MEDS ORDERED: LEVETIRACETAM ORAL SOLUTION 500 MG/5 ML SOLN PEG SCH (22:26)
[2019-11-12 22:27] VITALS: BP 135/61
[2019-11-12] MEDS ORDERED: DEXTROSE 50% SYRINGE 50 ML IV PRN (22:30)
[2019-11-12] MEDS: SODIUM CHLORIDE 0.9% 1000ML 1,000 ML IV SCH (23:10)
[2019-11-12] MEDS: INSULIN LISPRO 100 UNIT/1 ML 3ML VIAL SQ SCH (23:56)
[2019-11-13] VITALS (7 sets, daily range): BP systolic 125–156; BP diastolic 52–66
[2019-11-13] MEDS ORDERED: ACETAMINOPHEN 325 MG/10 ML UDC PEG SCH (02:00)
[2019-11-13 02:12] LABS: CREATINE KINASE MB 2.4 ng/mL (0-5.0)
[2019-11-13] MEDS ORDERED: LEVOFLOXACIN 500MG/D5W 100ML 100 ML IV SCH (05:15)
[2019-11-13 05:17] LABS: BASOPHILS % 0.4 % (0.0-1.0); EOSINOPHILS # (AUTO) 0.1 (0.0-0.4); EOSINOPHILS % 1.1 % (0.0-6.0); HEMATOCRIT 28.5 % (34.2-44.1); HEMOGLOBIN 8.6 g/dL (12.0-16.0); LYMPHOCYTES # (AUTO) 1.5 (1.0-3.2); LYMPHOCYTES % 15.9 % (18.0-39.1); MEAN CORPUSCULAR HEMOGLOBIN 29.9 pg (28-32); MEAN CORPUSCULAR HGB CONC 30.2 g/dL (31-35); MONOCYTES # (AUTO) 1.1 (0.2-0.8); MONOCYTES % 12.2 % (4.4-11.3); NEUTROPHILS # (AUTO) 6.4 (2.1-6.9); NEUTROPHILS % 69.7 % (38.7-80.0); PLATELET COUNT 230 x10e3/uL (140-360); RED BLOOD COUNT 2.88 x10e6/uL (3.6-5.1); RED CELL DISTRIBUTION WIDTH 18.1 % (11.7-14.4)
[2019-11-13] MEDS ORDERED: LEVOFLOXACIN 500MG/D5W 100ML 100 ML IV ONE (05:45)
[2019-11-13 05:51] LABS: ALANINE AMINOTRANSFERASE 35 IU/L (0-55); ALBUMIN 2.4 g/dL (3.5-5.0); ALBUMIN/GLOBULIN RATIO 0.9 (0.8-2.0); ALKALINE PHOSPHATASE 63 IU/L (40-150); ANION GAP 11.1 mmol/L (8-16); BLOOD UREA NITROGEN 11 mg/dL (7-26); BUN/CREATININE RATIO 19 (6-25); CARBON DIOXIDE 33 mmol/L (22-29); CHLORIDE 108 mmol/L (98-107); CREATININE, SERUM 0.59 mg/dL (0.57-1.11); EST GLOMERULAR FILTRATION RATE > 60 ML/MIN (60-); GLUCOSE 257 mg/dL (74-118); POTASSIUM 3.1 mmol/L (3.5-5.1); SODIUM 149 mmol/L (136-145)
[2019-11-13] MEDS: INSULIN LISPRO 100 UNIT/1 ML 3ML VIAL SQ SCH ×5 (07:29→21:00)
[2019-11-13] MEDS: SODIUM CHLORIDE 0.9% 1000ML 1,000 ML IV SCH ×3 (07:56→21:16)
[2019-11-13] MEDS: CITALOPRAM HYDROBROMIDE 20 MG TAB PEG SCH (08:41)
[2019-11-13] MEDS: ASPIRIN 81 MG CHEW TAB PEG SCH (08:41)
[2019-11-13] MEDS: LEVETIRACETAM ORAL SOLUTION 500 MG/5 ML SOLN PEG SCH ×2 (08:42→21:15)
[2019-11-13] MEDS: MEMANTINE 10 MG TAB PEG SCH ×2 (08:42→21:15)
[2019-11-13] MEDS: MIDODRINE HCL 5 MG TABLET PEG SCH ×3 (08:42→21:15)
[2019-11-13] MEDS ORDERED: PANTOPRAZOLE SODIUM 40 MG SUSPDR.PKT PEG SCH (09:00)
[2019-11-13] MEDS ORDERED: ASPIRIN 81 MG CHEW TAB PO SCH (09:00)
--- NOTE | 2019-11-13 09:08 | NUR ---
pt resting in bed. nonverbal, only moans. did not follow commands. vs stable. daughter aware
--- NOTE | 2019-11-13 10:07 | History and Physical ---
CHIEF COMPLAINT: A 69-year-old female, who came in with acute mental status changes. HISTORY OF PRESENTING ILLNESS: Ms. Lucero Garibay, who was recently admitted to the hospital and was discharge to [facility], was seen with respiratory distress and the patient was brought back to the emergency room for further evaluation. The patient was discharged from nearby Hospital for apparent acute mental status changes. Currently, she is nonverbal and has bilateral arm swelling. The patient was admitted for acute mental status changes. PAST MEDICAL HISTORY: Everything is documented from the history provided in the chart. The patient is nonverbal, has history of cerebral infarction due to stenosis of left carotid artery. 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 MEDICATIONS: That she takes are acetaminophen 325 mg q.4 hours as needed for fever, albuterol 0.63/3 mL nebulizers, apixaban 5 mg twice a day, aspirin 81 mg daily, atorvastatin 20 mg at nighttime, citalopram 20 mg, Depakote 125 mg, lactulose p.r.n. She also takes Keppra 1000 mg twice a day. Namenda 5 mg twice a day. Midodrine 5 mg t.i.d. through the PEG tube and omeprazole 40 mg daily. Code status is unknown. At this time, she is a full code. SOCIAL HISTORY: Lives in a senior living. Previous smoking history or ETOH is unknown. REVIEW OF SYSTEMS: Cannot be taken secondary to the patient's mental status. ALLERGIES: NO DRUG ALLERGIES NOTED. PAST SURGICAL HISTORY: Not available at this time. PHYSICAL EXAMINATION: VITAL SIGNS: Temperature is 98.2, pulse of 73, respirations of 19, blood pressure is 125/52, pulse oximetry 100% on 2 L of nasal cannula. HEENT: The patient is shifting to the left. Pupils are reactive. Not following any commands at this time. CVS: S1 and S2 normal. . ABDOMEN: PEG tube in place. LUNGS: Decreased air entry with bilateral rhonchi. EXTREMITIES: No clubbing. No cyanosis. Positive for some edema. The patient has a Navarro catheter and also a PEG tube in place. LABORATORY VALUES: White count is 12.58, hemoglobin of 10.4, hematocrit of 34.7, no left shift present. Chemistry; sodium 145, potassium of 4, BUN of 14 and creatinine 0.66 with a glucose of 325, AST of 39. Serology: Coronavirus not detected. Urine was cloudy with negative esterase and negative nitrites and bacteria many. MICROBIOLOGY: Urine culture and blood cultures are pending. Troponin x2 are negative. Lactic acid 1.3. IMAGING STUDIES: Chest x-ray showed poorly infiltrated lung with bronchovascular crowding, which could be exacerbated to lung volumes. ASSESSMENT AND PLAN: Ms. Lucero Garibay with: 1. Acute mental status changes. 2. Ischemic encephalopathy. 3. Probable pneumonia and aspiration. 4. Diabetes mellitus, uncontrolled. 5. History of epilepsy. 6. Hyperlipidemia. 7. Dementia. 8. History of cerebrovascular accident. 9. History of taking long-term anticoagulation. PLAN: At this time, the patient recently restarted back on her home medications including Keppra and Depakote. Restart her antihyperlipidemic agents and blood pressure medications, insulin sliding scale instated. We will start her on broad-spectrum antibiotic, Levaquin. Further recommendation per clinical course. A consult with Dr. Apolinar Haines has been done and for the pneumonia, we will continue with albuterol and Atrovent treatments and hold back her feedings to 30 mL an hour in lieu of possible aspiration. MD JAGJIT Croft/MODL /[id number]
[2019-11-13] MEDS: VALPROATE 250MG/5ML ORAL LIQ 5ml PEG SCH ×2 (10:30→21:16)
--- NOTE | 2019-11-13 11:19 | NUR ---
PT UNABLE TO ANSWER QUESTIONS CM PLACED CALL TO EMERGENCY CONTACT 1-VIRGIL BERRIOS - SISTER IN LAW- [phone] TO ENSURE THAT SHE WANTS PT TO GO BACK TO [facility] UPON DISCHARGE; NO ANSWER, LEFT MESSAGE ON TO RETURN MY CALL.
--- NOTE | 2019-11-13 11:44 | Diagnostic Imaging Report ---
EXAM: CT Chest WITH intravenous contrast 11/13/2019 10:45 AM INDICATION: ^PNEUMONIA ^[id number] ^1045. COMPARISON: Chest single view TECHNIQUE: Chest was scanned utilizing a multidetector helical scanner from the lung apex through the level of the adrenal glands following administration of IV contrast. Coronal and sagittal reformations were obtained. Routine protocol was performed. IV CONTRAST: 100mL Isovue 370 RADIATION DOSE: Total DLP: 518 mGy*cm. Dose modulation, iterative reconstruction, and/or weight based adjustment of the mA/kV was utilized to reduce the radiation dose to as low as reasonably achievable. COMPLICATIONS: None FINDINGS: LINES/ TUBES: None. LUNGS AND AIRWAYS: Negative for pneumothorax or large effusion. Debris is identified within the mainstem trachea extending into the left lower lobe bronchi. There are patchy airspace opacities at the lung bases, likely related to scarring/atelectasis. HEART AND MEDIASTINUM: The thyroid gland is normal. No mediastinal, hilar or axillary lymphadenopathy. The heart is normal in size. There is no pericardial effusion. Small amount of peripheral irregular is identified within the distal right main pulmonary artery extending into the right upper lobe branch is visualized on coronal image 39 and axial images 46 and 49. Main pulmonary artery measures approximately 2.2 cm. Negative for right ventricular enlargement. Thoracic aorta is of normal caliber without acute abnormality. UPPER ABDOMEN: Right hemidiaphragm elevation is noted with colon anterior to the liver. Gallbladder is decompressed. Gastrostomy tube is identified within the gastric antrum, partially visualized. Tip of a probable IVC filter is noted. Left adrenal gland thickening and nodularity is noted. BONES: Negative for acute osseous abnormality. Advanced degenerative lower cervical and moderate multilevel degenerative changes of the thoracic spine are noted. SOFT TISSUES: Unremarkable. IMPRESSION: 1. Small amount of peripheral/eccentric chronic appearing nonocclusive thrombus within the upper distal right main pulmonary artery extending into the upper lobe branch. Distal flow is identified. No signs of right heart strain. Indwelling IVC filter is noted. 2. Right hemidiaphragm elevation. Debris is identified within the mainstem trachea and left lower lobe bronchi with patchy basilar airspace opacities concerning for aspiration/multifocal infection. The above findings were discussed with KAI Garland on 11/13/2019 11:33 AM, who responded indicating that the communication was understood. Signed by: Sampson Meredith MD on 11/13/2019 11:41 AM
[2019-11-13] MEDS ORDERED: IOPAMIDOL 370 MG/ML 200 ML INFUS..BTL INJ ONE (14:37)
--- NOTE | 2019-11-13 15:11 | NUR ---
Nutrition Intervention Note RD Recommendation(s) for Physician: -Recommend Glucerna 1.5 @ goal rate of 50 mL/hr (provides 1800 kcal, 99 g protein) - Water/fluid management per MD Plan of Care: RD following, monitoring for tolerance and adequacy Nutrition reason for involvement: enteral nutrition RD Assessment (11/13/19) Pt is a 69 year old female admitted with AMS, UTI, and dyspnea. Unable to obtain nutrition history from pt since it is noted that the pt is non-verbal. [facility] from a [facility] and receives Glucerna 1.5 per chart on unit. There are no previous weights in chart and pt has a recorded height of 4 foot 4 inches (unable to determine accuracy of pts height). Recommendations provided. Will continue to monitor. Principal Problems/Diagnoses: AMS, UTI, dyspnea PMH: cerebral infarction due to stenosis of left carotid artery. 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 GI: last recorded BM 11/12, soft/non-tender abdomen Skin: stage 1 sacrum pressure ulcer Labs: (11/12) Na 149, K 3.1, BUN 11, Cr 0.59, Glu 257, Ca 8.0, AST 38 Meds: insulin, lactulose, lipitor Ht: 52 inches (unable to determine accuracy of ht) Wt: 160 lbs BMI: - - (unable to determine accuracy of ht) IBW: - - (unable to determine accuracy of ht) Malnutrition Evaluation (11/13/19) The patient does not meet criteria for a specified degree of malnutrition at this time. Will re-evaluate at follow-up as appropriate. Unable to fully assess at this time. Nutrition Prescription (Diet Order): Glucerna 1.5 @ 65 mL/hr Estimated Nutritional Needs: - unable to determine accuracy of height 4607-6240 calories/day (25-30 kcal/kg CBW) 73-109 g protein/day (1-1.5 g pro/kg CBW) Diet Adequacy: pending Tolerance: Tolerance pending Diet Education Needs Assessment: Diet education not indicated Nutrition Care Level: moderate Nutrition Diagnosis: Inadequate oral intake related to decreased ability to consume sufficient energy as evidenced by need for enteral nutrition. Goal: Patient will meet 75-100% of estimated needs by follow up Progress: N/A Interventions: - Composition, Rate, Route, Recommended Modifications Monitoring/Evaluation: -Total energy intake, Total protein intake, Formula/Solution, Weight change Signed: Yue Diggs RD, LD
[2019-11-13 17:20] LABS: CREATINE KINASE MB 1.2 ng/mL (0-5.0)
--- NOTE | 2019-11-13 18:10 | Diagnostic Imaging Report ---
EXAMINATION: Head CT HISTORY: 69-year-old female with altered mental status for the last few days COMPARISON: None. TECHNIQUE: Helical axial images of the head were obtained. Dose modulation, iterative reconstruction, and/or weight based adjustment of the mA/kV was utilized to reduce the radiation dose to as low as reasonably achievable. Image quality: Motion/streaking artifact limits the evaluation of the study due to inability of the patient to stay still. FINDINGS: Parenchyma: 1. No abnormal densities. 2. No mass or hemorrhage. No CT evidence of acute territorial vascular insult. Extra-axial spaces:No abnormal density. No extra-axial fluid collections Brain volume: Moderate generalized brain volume loss with mild perisylvian predominance, slightly more than what is expected for patient's age. Ventricles: No hydrocephalus or displacement. Arteries: No density suggestive of thrombus. Dural sinuses: No abnormal density. Foramen magnum: No mass, Chiari malformation, or basilar invagination. Sella: No obvious mass. Paranasal/mastoid sinuses: Partial opacification of the bilateral mastoid air cells and middle ears. Probable cerumen within the left external auditory canal. Skull/Scalp: No lytic or blastic lesions. No fractures. IMPRESSION: 1. No acute intracranial hemorrhage, mass or cortical infarct. No midline shift or herniation. 2. Nonspecific likely chronic partial opacification of the mastoid air cells//middle ear. Signed by: Dr. Estefania Pagan M.D. on 11/13/2019 6:07 PM
[2019-11-13] MEDS: ATORVASTATIN 20 MG TAB PEG SCH (21:15)
[2019-11-14] VITALS (7 sets, daily range): BP systolic 112–155; BP diastolic 51–93
[2019-11-14] MEDS: INSULIN LISPRO 100 UNIT/1 ML 3ML VIAL SQ SCH ×5 (01:20→22:39)
--- NOTE | 2019-11-14 01:31 | Consultation ---
DATE OF CONSULTATION: Neurology Consultation HISTORY OF PRESENT ILLNESS: The patient is a 69-year-old female with reported history of substantial dementia, recent left MCA stroke, [facility] resident prior to this admission, and recent infection of COVID and large vessel occlusive stroke. At baseline, she is nonverbal. She presents now with mental status changes, arm swelling, and encephalopathy. PAST MEDICAL HISTORY: From previous notes, the patient has history of strokes, left stenotic carotid artery, seizure disorder, ischemic encephalopathy, essential hypertension, type 2 diabetes mellitus, malnutrition, pneumonia, Alzheimer's disease, cerebral strokes, and UTIs. MEDICATIONS: At home, she is on acetaminophen, atorvastatin, citalopram, Depakote, Keppra, Namenda, midodrine, omeprazole. SOCIAL HISTORY: Lives in a [facility]. REVIEW OF SYSTEMS: Cannot be obtained. PHYSICAL EXAMINATION: VITAL SIGNS: Shows an afebrile patient at 98.2, pulse 73, blood pressure 125/52. GENERAL: The patient is in bed, looking . Pupils are reactive. She does not follow any commands. CARDIOVASCULAR: Regular rate and rhythm. PULMONARY: Crackly with decreased air entry. She has a PEG tube. ABDOMEN: Soft. NEUROLOGIC: Her reflexes are diminished. She has some increased muscle tone and upgoing toes bilaterally. Does not follow any commands. Moves all 4 extremities . ASSESSMENT AND PLAN: I am seeing the patient with a history of stroke, encephalopathy, coronavirus disease 2019 infection, and early-onset dementia, that is in the advanced state for mental status changes of unclear etiology. Infectious metabolic encephalopathy will be evaluated. Repeat CT scan to evaluate for any neurological insults. Maintain the patient on antiplatelet agents and we will monitor the patient for neurophysiological changes and convulsive events. An EEG will be done to evaluate subclinical seizures. KISHA DALE MD RR/MODL /[id number]
[2019-11-14 05:54] LABS: BASOPHILS # (AUTO) 0.1 (0.0-0.1); BASOPHILS % 0.4 % (0.0-1.0); EOSINOPHILS # (AUTO) 0.1 (0.0-0.4); EOSINOPHILS % 0.6 % (0.0-6.0); HEMATOCRIT 30.3 % (34.2-44.1); LYMPHOCYTES # (AUTO) 1.6 (1.0-3.2); LYMPHOCYTES % 11.4 % (18.0-39.1); MEAN CORPUSCULAR HEMOGLOBIN 28.8 pg (28-32); MEAN CORPUSCULAR HGB CONC 29.7 g/dL (31-35); MEAN CORPUSCULAR VOLUME 96.8 fL (81-99); MONOCYTES # (AUTO) 1.5 (0.2-0.8); MONOCYTES % 10.4 % (4.4-11.3); NEUTROPHILS # (AUTO) 10.9 (2.1-6.9); NEUTROPHILS % 76.6 % (38.7-80.0); PLATELET COUNT 285 x10e3/uL (140-360); RED BLOOD COUNT 3.13 x10e6/uL (3.6-5.1); RED CELL DISTRIBUTION WIDTH 17.9 % (11.7-14.4)
[2019-11-14] MEDS ORDERED: LEVOFLOXACIN 250MG/D5W 50ML 50 ML IV SCH (06:00)
[2019-11-14 06:20] LABS: ALANINE AMINOTRANSFERASE 51 IU/L (0-55); ALBUMIN 2.5 g/dL (3.5-5.0); ALBUMIN/GLOBULIN RATIO 0.8 (0.8-2.0); ALKALINE PHOSPHATASE 76 IU/L (40-150); ANION GAP 11.4 mmol/L (8-16); BLOOD UREA NITROGEN 10 mg/dL (7-26); BUN/CREATININE RATIO 17 (6-25); CARBON DIOXIDE 32 mmol/L (22-29); CHLORIDE 107 mmol/L (98-107); CREATININE, SERUM 0.58 mg/dL (0.57-1.11); EST GLOMERULAR FILTRATION RATE > 60 ML/MIN (60-); GLUCOSE 257 mg/dL (74-118); POTASSIUM 3.4 mmol/L (3.5-5.1); SODIUM 147 mmol/L (136-145)
[2019-11-14] MEDS ORDERED: POTASSIUM CHLORIDE 20MEQ/15ML UDC PEG ONE (07:45)
[2019-11-14] MEDS: CITALOPRAM HYDROBROMIDE 20 MG TAB PEG SCH (08:50)
[2019-11-14] MEDS: LEVETIRACETAM ORAL SOLUTION 500 MG/5 ML SOLN PEG SCH ×2 (08:50→20:12)
[2019-11-14] MEDS: MIDODRINE HCL 5 MG TABLET PEG SCH ×3 (08:50→20:12)
[2019-11-14] MEDS: MEMANTINE 10 MG TAB PEG SCH ×2 (08:50→20:12)
[2019-11-14] MEDS: OMEPRAZOLE 20 MG CAP PEG SCH (08:50)
[2019-11-14] MEDS: ASPIRIN 81 MG CHEW TAB PEG SCH (08:50)
[2019-11-14] MEDS: VALPROATE 250MG/5ML ORAL LIQ 5ml PEG SCH ×2 (09:03→20:12)
--- NOTE | 2019-11-14 11:17 | Progress Note ---
DATE: SUBJECTIVE: This is a 69-year-old female, status post CVA, status post history of COVID-19. The patient is still nonverbal, has improved from yesterday. The patient has been restarted on her PEG feeds. Medicines have been reviewed. She is getting Eliquis for atrial fibrillation, aspirin 81 mg, atorvastatin 20 mg, citalopram 20 mg, Depakote 2 capsule q.12 hours, and she is on Keppra for seizure, and Namenda for her dementia. She is also getting midodrine for hypertension and currently on Levaquin for aspiration pneumonia. OBJECTIVE: VITAL SIGNS: Temperature is 99, elevated, pulse of 94, blood pressure is 152/69, pulse oximetry of 98%. She is on 4 L nasal cannula. HEENT: Neck turned to the left all the time. Oral mucosa is slightly dry. CVS: S1 and S2 are regular. ABDOMEN: PEG tube in place. EXTREMITIES: No clubbing, no cyanosis, no edema. NEUROLOGIC: No deterioration noted. LABORATORY VALUES: White count is 14,000, yesterday; hemoglobin of 9; hematocrit of 30, platelet count is 285. Chemistry shows sodium of 147, potassium 3.4, BUN of 10, creatinine of 0.58, glucoses have been ranging 246 to 146. Troponins have been trended to be negative. Serology; coronavirus was not detected and urine showed cloudiness with negative nitrites and negative leukocyte esterase. IMAGING STUDIES: Done from yesterday, there were 2 brain [address]s, shows no acute intracranial hemorrhages, nonspecific chronic opacification and mastoid air cells. Chest CT shows a small amount of peripheral eccentric chronic-appearing nonocclusive thrombus in upper distal pulmonary artery, right hemidiaphragm elevation. No signs of heart strain. Indwelling IVC filter is noted and left lower lobe bronchi with patchy bibasilar opacities concerning for aspiration multifocal infection. ASSESSMENT: Ms. Lucero Garibay is a 69-year-old female with acute mental status changes, possible aspiration pneumonia. The patient was on Levaquin. We might actually change her to Zosyn in lieu of her aspiration. Discontinue Levaquin. A consult with Pulmonary has been done. Dr. Apolinar Haines has seen her for neurological purposes, on sodium by increasing free water with feeds. She is up to 50 mL of Glucerna. PLAN: Again, the patient's family will be contacted again to discuss about plan of care and also advance directives. Continue with Zosyn , free water increased, and the patient will be getting some Mucomyst for upper respiratory secretions. Further recommendation per clinical course. We will continue to monitor the patient and continue to monitor her labs. MD JAGJIT Croft/XIMENA /[id number]
--- NOTE | 2019-11-14 11:31 | Consultation ---
DATE OF CONSULTATION: Pulmonary Consultation The patient of Dr. Tono Burgos. HISTORY OF PRESENT ILLNESS: Unfortunate 69-year-old woman, resident of [facility], admitted with shortness of breath from the jail. Recently discharged from [facility] with a diagnosis of COVID pneumonia and respiratory failure. Apparently, she had a large left middle cerebral artery stroke.The timing of the stroke is unclear She hasa history of hypertension, diabetes, history of seizure disorder, presumably following the stroke. ALLERGIES: NO KNOWN ALLERGIES. MEDICATIONS: Her jail medications had included Tylenol, apixaban, Keppra, Celexa, Depakote, midodrine, Lipitor, aspirin, insulin, albuterol. She has had a PEG placed and IVC filter. PHYSICAL EXAMINATION: GENERAL: She is a frail white female, moves her eyes but not to command, looks to the left. VITAL SIGNS: Temperature 99, pulse 94, respirations 18, blood pressure 133/75. HEAD: Normocephalic, atraumatic. NECK: Trachea midline. LUNGS: Rhonchi bilaterally, left greater than right. Diminished breath sounds right base. HEART: Regular rhythm. ABDOMEN: Nontender. PEG is in place. EXTREMITIES: Rolling contractures. CT scan reveals evidence of retained secretions, elevated diaphragm, chronic recanalized thrombus in the right main pulmonary artery. Continue anticoagulation. She is in high risk state, anti-platelet agent. Free water in view of elevated sodium. Empiric antibiotics. Chest physiotherapy and bronchodilators reduced dose of Mucomyst. Long-term prognosis is poor. MD KEVIN Diaz/XIMENA /[id number]
--- NOTE | 2019-11-14 11:36 | NUR ---
patient not awake open mouth, starring, not responding to stimuli vs 99 94 133/75 nonresponsive to examiner, minimally responsive to stimuli rrr cta abd soft, , peg spastic paresis left edema in bue and ble spastic paresis left withdraws from nox stim cortical fisting left ap- ct reasurring - mri will be ordered given reported hx of l MCA stroke, but exam suggesting diffuse neuro dysfunction primarily right hemisphere > left mri will be needed to establish neuro-structural integrity continue stroke prevention eeg
[2019-11-14] MEDS ORDERED: ACETYLCYSTEINE 20% INHAL SOLN 30 ML VIAL INH SCH (12:00)
[2019-11-14] MEDS ORDERED: CLINDAMYCIN 300MG 50 ML IV SCH (12:00)
[2019-11-14] MEDS: PIPERACILLIN/TAZO 2.25 GM 50 ML IV SCH ×3 (12:06→22:38)
[2019-11-14] MEDS ORDERED: GADOBENATE DIMEGLUMINE 1 ML IV ONE (14:37)
[2019-11-14] MEDS ORDERED: LORAZEPAM INJ 2 MG/ML VIAL IV NR (15:35)
[2019-11-14] MEDS: APIXABAN 5 MG TABLET PO SCH (17:01)
--- NOTE | 2019-11-14 17:35 | Diagnostic Imaging Report ---
Examination: MRI BRAIN WOW CONTRAST History: Stroke; not responsive; altered mental status Comparison studies: Head CT performed yesterday. Technique: Pre-contrast: Sagittal T2; axial T1, GRE or SWI, DWI, T2 FLAIR Post-contrast: axial, sagittal and coronal T1. Intravenous contrast: 10 mL MultiHance. Findings: Scalp: No abnormal signal. No masses. Bone marrow: Normal in signal intensity. Brain volume: Generalized volume loss. Ventricles: No hydrocephalus. Parenchyma: There are patchy and confluent areas of T2/FLAIR hyperintensity in the periventricular and subcortical white matter, nonspecific. No masses, hemorrhage, or acute vascular insults. Extra-axial spaces: No lesion, fluid collection or hematoma. Enhancement: No abnormal enhancement. Suprasellar and sellar region: No abnormalities. Craniocervical junction: No abnormalities. The foramen magnum is patent. No Chiari malformations. Vessels: Normal flow-voids in the arteries and sinuses. Additional findings:Fluid filled bilateral mastoid air cells and middle ear cavity. IMPRESSION: No acute infarct. Generalized volume loss. Mild chronic microvascular ischemic change. Fluid-filled bilateral mastoid air cells and middle ear cavity. Signed by: Dr. Solange Chaney M.D. on 11/14/2019 5:31 PM
[2019-11-14] MEDS: ACETYLCYSTEINE 200 MG/ML 4ML VIAL INH SCH (19:00)
--- NOTE | 2019-11-14 19:31 | Diagnostic Imaging Report ---
EXAMINATION: CHEST XRAY LINE PLACEMENT INDICATION: ^PICC LINE PLACEMENT COMPARISON: 11/12/2019 FINDINGS: AP view TUBES and LINES: Right PICC in place with tip projecting over mid SVC. Percutaneous gastrostomy tube in place. LUNGS: Elevated right hemidiaphragm. Central vascular congestion. PLEURA: No significant pleural effusion or pneumothorax. HEART AND MEDIASTINUM: The cardiac silhouette is mildly enlarged. BONES AND SOFT TISSUES: No acute osseous lesion. Soft tissues are unremarkable. UPPER ABDOMEN: No free air under the diaphragm. IMPRESSION: Right PICC in place with tip projecting over mid SVC. No visible pneumothorax. Pulmonary status is unchanged from prior exam. Signed by: Dr. Antonio Moyer MD on 11/14/2019 7:28 PM
[2019-11-14] MEDS: ATORVASTATIN 20 MG TAB PEG SCH (20:12)
[2019-11-15] VITALS (11 sets, daily range): BP systolic 77–129; BP diastolic 23–63
[2019-11-15] MEDS: ACETAMINOPHEN 325 MG/10 ML UDC PEG PRN ×2 (06:04→09:53)
[2019-11-15] MEDS: PIPERACILLIN/TAZO 2.25 GM 50 ML IV SCH ×4 (06:04→23:30)
[2019-11-15 06:10] LABS: ALANINE AMINOTRANSFERASE 39 IU/L (0-55); ALBUMIN 2.7 g/dL (3.5-5.0); ALBUMIN/GLOBULIN RATIO 0.8 (0.8-2.0); ALKALINE PHOSPHATASE 86 IU/L (40-150); ANION GAP 17.4 mmol/L (8-16); BLOOD UREA NITROGEN 12 mg/dL (7-26); BUN/CREATININE RATIO 18 (6-25); CALCIUM 8.6 mg/dL (8.4-10.2); CARBON DIOXIDE 22 mmol/L (22-29); CHLORIDE 109 mmol/L (98-107); CREATININE, SERUM 0.66 mg/dL (0.57-1.11); EST GLOMERULAR FILTRATION RATE > 60 ML/MIN (60-); GLUCOSE 291 mg/dL (74-118); POTASSIUM 4.4 mmol/L (3.5-5.1); SODIUM 144 mmol/L (136-145)
[2019-11-15 06:12] LABS: BASOPHILS # (AUTO) 0.1 (0.0-0.1); BASOPHILS % 0.4 % (0.0-1.0); EOSINOPHILS # (AUTO) 0.2 (0.0-0.4); EOSINOPHILS % 0.6 % (0.0-6.0); HEMATOCRIT 36.4 % (34.2-44.1); HEMOGLOBIN 10.3 g/dL (12.0-16.0); LYMPHOCYTES # (AUTO) 2.6 (1.0-3.2); MEAN CORPUSCULAR HEMOGLOBIN 28.9 pg (28-32); MEAN CORPUSCULAR HGB CONC 28.3 g/dL (31-35); MONOCYTES # (AUTO) 2.1 (0.2-0.8); MONOCYTES % 8.3 % (4.4-11.3); NEUTROPHILS # (AUTO) 20.5 (2.1-6.9); NEUTROPHILS % 79.8 % (38.7-80.0); PLATELET COUNT 269 x10e3/uL (140-360); RED BLOOD COUNT 3.57 x10e6/uL (3.6-5.1); RED CELL DISTRIBUTION WIDTH 18.8 % (11.7-14.4)
[2019-11-15] MEDS: INSULIN LISPRO 100 UNIT/1 ML 3ML VIAL SQ SCH ×4 (06:26→23:29)
[2019-11-15 06:52] LABS: % IRON SATURATION 9 % (15-50); IRON 24 ug/dL (50-170); TOTAL IRON BINDING CAPACITY 255 ug/dL (261-478); TRANSFERRIN 182 mg/dL (180-382)
[2019-11-15] MEDS: ALBUTEROL SULF 0.083% NEB SOLN 3 ML NEB NEB PRN ×2 (07:45→18:45)
[2019-11-15] MEDS: ACETYLCYSTEINE 200 MG/ML 4ML VIAL INH SCH ×2 (07:45→18:45)
--- NOTE | 2019-11-15 09:35 | Progress Note ---
DATE: SUBJECTIVE: The patient is a 69-year-old female, who came in with aspiration pneumonia with acute mental status changes, history of COVID pneumonia and generalized debility, and history of stroke with history of atrial fibrillation. Today, the patient is still nonverbal, has some grimacing going according to nursing staff and they moved the patient. OBJECTIVE: VITAL SIGNS: Temperature is 98.2, pulse of 81, respirations of 20, blood pressure is 129/63, and pulse oximetry of 100%. HEENT: Normocephalic and atraumatic. The patient is nonresponsive to verbal stimulus. Sleeps. CVS: S1 and S2 normal. Regular rate and rhythm. ABDOMEN: Soft and nontender. PEG tube in site. EXTREMITIES: No clubbing. No cyanosis. No edema. The patient does have stage II ulcers in bilateral heels. LABORATORY VALUES: White count is gone up to 25,000 from 14,000 yesterday, hemoglobin of 10.3, hematocrit of 36.4, neutrophil count is 79.3. Chemistry shows sodium 144, potassium of 4.4, BUN of 12, creatinine 0.66, and glucose in the 270s. Serology; coronavirus is not detected. MICROBIOLOGY: Urine culture and blood cultures, no growth in last 48 hours. ASSESSMENT AND PLAN: Ms. Lucero Garibay with: 1. Possible sepsis. 2. Aspiration pneumonia. 3. Hypertension. 4. Diabetes. 5. Hyperlipidemia. 6. Acute mental status changes. PLAN: Add vancomycin to the regimen. Consult ID with Dr. Elmore. Dr. Cortez has ordered some CPT for the patient, which will be continued, low-dose Mucomyst. In general, the patient's outlook is very guarded in lieu of her multiple medical condition and also her history of stroke. Further recommendation per clinical course. We will continue to monitor the patient. Medications reviewed. The patient is currently on Zosyn. We will add vancomycin. She is also getting her regular medications. MD JAGJIT Croft/XIMENA /[id number]
[2019-11-15 09:50] LABS: BAND NEUTROPHILS % (MANUAL) 6 %; EOSINOPHILS % (MANUAL) 1 % (0-7); LYMPHOCYTES % (MANUAL) 8 % (19-48); MONOCYTES % (MANUAL) 3 % (3.4-9.0); NEUTROPHILS % (MANUAL) 82 % (40-74); PLATELET ESTIMATE ADEQUATE; PLATELET MORPHOLOGY COMMENT NORMAL
[2019-11-15 09:51] LABS: HYPOCHROMASIA SLIGHT; POLYCHROMASIA FEW; RBC MORPHOLOGY COMMENT ABNORMAL
[2019-11-15] MEDS: CITALOPRAM HYDROBROMIDE 20 MG TAB PEG SCH (09:53)
[2019-11-15] MEDS: APIXABAN 5 MG TABLET PO SCH ×2 (09:53→17:46)
[2019-11-15] MEDS: OMEPRAZOLE 20 MG CAP PEG SCH (09:53)
[2019-11-15] MEDS: VANCOMYCIN 1GM/NS 250 ML 250 ML IV SCH ×2 (09:53→20:09)
[2019-11-15] MEDS: MIDODRINE HCL 5 MG TABLET PEG SCH ×3 (09:53→20:09)
[2019-11-15] MEDS: ASPIRIN 81 MG CHEW TAB PEG SCH (09:53)
[2019-11-15] MEDS: LEVETIRACETAM ORAL SOLUTION 500 MG/5 ML SOLN PEG SCH ×2 (09:53→20:09)
[2019-11-15] MEDS: MEMANTINE 10 MG TAB PEG SCH ×2 (09:53→20:10)
[2019-11-15] MEDS: VALPROATE 250MG/5ML ORAL LIQ 5ml PEG SCH ×2 (09:53→20:10)
[2019-11-15] MEDS: SODIUM CHLORIDE 0.9% 1000ML 1,000 ML IV SCH ×2 (13:59→20:48)
[2019-11-15] MEDS: KETOROLAC TROMETHAMINE 30 MG/ML VIAL IM PRN (18:02)
[2019-11-15] MEDS: ATORVASTATIN 20 MG TAB PEG SCH (20:10)
--- NOTE | 2019-11-15 21:06 | NUR ---
CALLED TO NOTIFY DR LYNCH PT IS STILL HAVING LOW BP 79/41 DESPITE ADMINISTRATION OF MIDODRINE ALREADY ORDERED AND 250 ML BOLUS. AWAITING CALL BACK. WILL CONT TO MONITOR.
--- NOTE | 2019-11-15 21:21 | NUR ---
DR LYNCH ED ON PT CURRENT CONDITION AND STATES TRANSFER TO ICU AND NOTIFY DR CURTIS TO START VASOPRESSORS WELL CALL DR SANTANA TO NOTIFY. DR CURTIS NOTIFIED AND ORDERED TO START LEVOPHED. NOTIFIED OF CURRENT ANTIBIOTICS OF ZOSYN AND VANCOMYCIN. CALLED AND NOTIFIED DR SANTANA'S OFFICE PT MOVING TO ICU AND AWAITING CALL BACK.
[2019-11-15] MEDS: NOREPINEPHRINE INJ 4MG/4ML 8 MG in DEXTROSE 5% 250ML 250 ML IV SCH (21:30)
--- NOTE | 2019-11-15 21:32 | Progress Note ---
DATE: Pulmonary Followup SUBJECTIVE: The patient is known to me from [facility], recently treated for COVID, currently the respiratory status appears to be stable. The patient is on 2 L nasal cannula, still very lethargic. OBJECTIVE: VITAL SIGNS: Blood pressure is 129/63, respiratory rate of 18, and O2 saturation 100% on 4 L. HEENT: Head is atraumatic, normocephalic. She is sleepy and obtunded. She is on Keppra and valproic acid. LABORATORY DATA: Labs reviewed. White count of 25,000, hemoglobin 10.3, and platelets 269. Chemistry reviewed. Lactic acid 2.1, which is gone up from 1.3. IMAGING DATA: Chest CT was done, which showed pulmonary embolism, right hemidiaphragm elevation. ASSESSMENT AND PLAN: Ms. Garibay is a 69-year-old female, residential resident, has separation sepsis due to aspiration pneumonia, recently being treated for COVID-19 infection. Continue the patient on antibiotics. Oxygen as needed to keep the O2 saturation more than or equal to 92%. The patient has a history of stroke; however, no stroke was seen in the MRI. Neurology is following, possibly altered mental status or somnolence, her somnolence is due to Keppra and valproic acid, may be the dose need to be adjusted, I will defer that to Neurology. MD AJ Nam/XIMENA /[id number]
--- NOTE | 2019-11-15 21:51 | NUR ---
SPOKE WITH FAMILY ABOUT PT, JONI BERRIOS IS OLDEST SON, AND THEY WANT TO MAKE PT DNR WITH NO CHEST COMPRESSIONS OR INTUBATION, SO NOTIFIED DR LYNCH AND PLACED ORDER.
[2019-11-16] VITALS (25 sets, daily range): BP systolic 91–200; BP diastolic 35–90
[2019-11-16 05:39] LABS: BASOPHILS # (AUTO) 0.1 (0.0-0.1); BASOPHILS % 0.3 % (0.0-1.0); EOSINOPHILS # (AUTO) 0.5 (0.0-0.4); EOSINOPHILS % 2.5 % (0.0-6.0); HEMATOCRIT 30.1 % (34.2-44.1); HEMOGLOBIN 8.6 g/dL (12.0-16.0); LYMPHOCYTES # (AUTO) 1.9 (1.0-3.2); LYMPHOCYTES % 9.6 % (18.0-39.1); MEAN CORPUSCULAR HGB CONC 28.6 g/dL (31-35); MONOCYTES % 5.2 % (4.4-11.3); NEUTROPHILS # (AUTO) 15.8 (2.1-6.9); NEUTROPHILS % 81.8 % (38.7-80.0); PLATELET COUNT 313 x10e3/uL (140-360); RED BLOOD COUNT 3.07 x10e6/uL (3.6-5.1); RED CELL DISTRIBUTION WIDTH 18.5 % (11.7-14.4)
[2019-11-16 05:57] LABS: ALANINE AMINOTRANSFERASE 30 IU/L (0-55); ALBUMIN 2.4 g/dL (3.5-5.0); ALBUMIN/GLOBULIN RATIO 0.8 (0.8-2.0); ALKALINE PHOSPHATASE 127 IU/L (40-150); ANION GAP 14.3 mmol/L (8-16); BLOOD UREA NITROGEN 17 mg/dL (7-26); BUN/CREATININE RATIO 30 (6-25); CALCIUM 7.9 mg/dL (8.4-10.2); CARBON DIOXIDE 26 mmol/L (22-29); CHLORIDE 110 mmol/L (98-107); CREATININE, SERUM 0.56 mg/dL (0.57-1.11); EST GLOMERULAR FILTRATION RATE > 60 ML/MIN (60-); GLUCOSE 245 mg/dL (74-118); POTASSIUM 4.3 mmol/L (3.5-5.1); SODIUM 146 mmol/L (136-145)
[2019-11-16] MEDS: PIPERACILLIN/TAZO 2.25 GM 50 ML IV SCH ×2 (06:41→12:30)
[2019-11-16] MEDS: INSULIN LISPRO 100 UNIT/1 ML 3ML VIAL SQ SCH ×3 (06:45→18:37)
[2019-11-16] MEDS: SODIUM CHLORIDE 0.9% 1000ML 1,000 ML IV SCH ×2 (08:47→21:53)
[2019-11-16] MEDS: CITALOPRAM HYDROBROMIDE 20 MG TAB PEG SCH (08:47)
[2019-11-16] MEDS: ASPIRIN 81 MG CHEW TAB PEG SCH (08:47)
[2019-11-16] MEDS: VANCOMYCIN 1GM/NS 250 ML 250 ML IV SCH (08:47)
[2019-11-16] MEDS: MIDODRINE HCL 5 MG TABLET PEG SCH ×3 (08:48→21:33)
[2019-11-16] MEDS: OMEPRAZOLE 20 MG CAP PEG SCH (08:48)
[2019-11-16] MEDS: APIXABAN 5 MG TABLET PO SCH ×2 (08:48→16:26)
[2019-11-16] MEDS: MEMANTINE 10 MG TAB PEG SCH ×2 (08:48→21:33)
[2019-11-16] MEDS: LEVETIRACETAM ORAL SOLUTION 500 MG/5 ML SOLN PEG SCH ×2 (08:48→21:35)
--- NOTE | 2019-11-16 09:14 | Progress Note ---
DATE: SUBJECTIVE: The patient is a 69-year-old female with CVA with history of seizure with history of recent COVID pneumonia with aspiration at this time. The patient yesterday or last night, blood pressure decreased. The patient was started on Levophed and transferred to ICU currently. In the ICU last night, the patient's brother does not want DNR and currently the patient is full code. Grunting as she moves, the patient has some transmitted upper respiratory sounds, which is audible without a stethoscope. Otherwise overnight, patient is stable so far. OBJECTIVE: VITAL SIGNS: At this time, temperature is 98.2, respirations 17, blood pressure is 126/56, pulse oximetry of 99%, she is on O2 at 4 L of oxygen. HEENT: Normocephalic. CVS: S1 and S2, regular. ABDOMEN: Soft, nontender. PEG tube in place. EXTREMITIES: No clubbing, no cyanosis, trace amount of edema. LABORATORY STUDIES: [place] [address] [place] [address], hemoglobin of 8.6, hematocrit of 30.1. Chemistries; creatinine is 0.56. Lactic acid was 2.21 yesterday. Coronavirus nondetected. Microbiology, no growth in blood cultures and urine cultures are negative. ASSESSMENT: This is Ms. Lucero Garibay with: 1. Sepsis. 2. History of COVID pneumonia. 3. Aspiration pneumonia. 4. Hypertension secondary to sepsis. 5. Toxic, metabolic and ischemic encephalopathy. PLAN: Continue current management. She is on three antibiotics. Continue with Levophed. Continue with Keppra and valproic acid. Further recommendation and clinical course. An MRI was done yesterday, did not show any acute strokes. Further recommendation per clinical course, we will keep her in the ICU, Dr. Barron and Dr. Apolinar Haines following the patient at this time. MD SIDDHARTH CroftJ/MODL /[id number]
--- NOTE | 2019-11-16 09:27 | Diagnostic Imaging Report ---
EXAMINATION: CHEST SINGLE (PORTABLE) INDICATION: Follow-up pneumonia. COMPARISON: None FINDINGS: TUBES and LINES: Right PICC is unchanged. LUNGS: Redemonstration of elevated right hemidiaphragm no significant interval changes in prominent interstitial lung markings throughout both lungs. PLEURA: No pleural effusion or pneumothorax. HEART AND MEDIASTINUM: The cardiomediastinal silhouette is mildly enlarged as before. There is atherosclerotic calcification of the thoracic aortic arch. BONES AND SOFT TISSUES: No acute osseous lesion. Soft tissues are unremarkable. UPPER ABDOMEN: No free air under the diaphragm. IMPRESSION: Mild cardiomegaly with persistent prominent interstitial lung markings which may represent mild pulmonary edema. Signed by: Ishan Gauthier MD on 11/16/2019 9:23 AM
[2019-11-16] MEDS: ALBUTEROL SULF 0.083% NEB SOLN 3 ML NEB NEB PRN ×2 (10:53→18:20)
[2019-11-16] MEDS: ACETYLCYSTEINE 200 MG/ML 4ML VIAL INH SCH ×3 (10:53→20:24)
--- NOTE | 2019-11-16 11:41 | NUR ---
hypotensive overnight but more alert vs 98.4 68 91/76 left gaze preference, right hemineglect nonverbal left spastic paresis tachycardia rhonchus abd soft edena in bue and ble spastic paresis left right increased tone reflexes brisk toes upgoing bilareally does not follow commands a/p dementia w infectious encephalopathy covid-encephaopathy eeg severe diffuse encephaloapthy without seizures (substantial artifact limits read) no acute stroke on imaing discussed case w/ daughter on phone, explained above
--- NOTE | 2019-11-16 11:43 | NUR ---
eeg 30 min eeg eval for subclinical sz EEG is a 10/20 interantional electrode placement study using bipolar and transverse montage EEG data- attenuated slow waves intermittent higher amplitdue theta and delta waves substantial technical artifact limits read EEG interpretation EEG is abnormal III attenuated slow waves EEG is consistent with severe diffuse encephalopathy without evidence for seizure activity EEG read is limited by substantial artifact
[2019-11-16] MEDS: VALPROATE 250MG/5ML ORAL LIQ 5ml PEG SCH ×2 (12:30→21:32)
--- NOTE | 2019-11-16 15:01 | NUR ---
INFECTIOUS DISEASES CONSULTATION A 69-year-old female, who came in with acute mental status changes. HISTORY OF PRESENTING ILLNESS: Ms. Lucero Garibay, who was recently admitted to the hospital and was discharge to [facility], was seen with respiratory distress and the patient was brought back to the emergency room for further evaluation. The patient was discharged from nearby Hospital for apparent acute mental status changes. Currently, she is nonverbal and has bilateral arm swelling. The patient was admitted for acute mental status changes. CURRENTLY IN icu discussed with medical team PAST MEDICAL HISTORY: Everything is documented from the history provided in the chart. The patient is nonverbal, has history of cerebral infarction due to stenosis of left carotid artery. The patient has seizure disorder probably secondary to ischemic encephalopathy, history of essential hypertension, history of constipation, history of type 2 diabetes mellitus without any complication, moderate protein-calorie malnutrition, history of recent pneumonia, hyperlipidemia, reflux esophagitis, dementia with behavioral disturbances, Alzheimer's,, cerebellar stroke syndrome and also history of frequent UTIs. past surgical history peg MEDICATIONS: That she takes are acetaminophen 325 mg q.4 hours as needed for fever, albuterol 0.63/3 mL nebulizers, apixaban 5 mg twice a day, aspirin 81 mg daily, atorvastatin 20 mg at nighttime, citalopram 20 mg, Depakote 125 mg, lactulose p.r.n. She also takes Keppra 1000 mg twice a day. Namenda 5 mg twice a day. Midodrine 5 mg t.i.d. through the PEG tube and omeprazole 40 mg daily. Code status is unknown. At this time, she is a full code. SOCIAL HISTORY: Lives in a long term. Previous smoking history or ETOH is unknown. REVIEW OF SYSTEMS: Cannot be taken secondary to the patient's mental status. ALLERGIES: NO DRUG ALLERGIES NOTED. PE ON VENT non communicative HEENT not pale not icteric neck supple chest rhonchie cor s1 s2 abdomen soft bs pos HEENT: normocephalic, atraumatic CV: s1, s2, no s3, s4 CHEST: rhonchi, diminished ABD: soft, non-tender EXT: no joint swelling NEURO: unobtainable LABS: reviewed RADIOLOGY: reviewed IMPRESSION: 1. Aspiration PNA 2. Septic Shock present on admission 3. Debility 4. Dementia 5. hx of CVA PLAN: Change to Cefepime cont supportive care
--- NOTE | 2019-11-16 15:12 | NUR ---
INFECTIOUS DISEASE CONSULT DR. SANTANA CC: Septic Shock present on admission to ED HPI: Ms. Lucero Garibay, who was recently admitted to the hospital and was discharge to [facility], was seen with respiratory distress and the patient was brought back to the emergency room for further evaluation. The patient was discharged from nearby Hospital for apparent acute mental status changes. Currently, she is nonverbal and has bilateral arm swelling. The patient was admitted for acute mental status changes. PMH: CVA, seizure disorder, HTN, constipation, T2DM, malnutrition, PNA, GERD, HLD, and Dementia PAST SURGICAL HX: unknown SOCIAL HX: non contributory ROS unobtainable due to condition ALL 14 POINT ROS NEG UNLESS OTHERWISE NOTED PHYSICAL EXAM GENERAL: sleeping, chronically ill appearing HEENT: normocephalic, atraumatic CV: s1, s2, no s3, s4 CHEST: rhonchi, diminished ABD: soft, non-tender EXT: no joint swelling NEURO: unobtainable LABS: reviewed RADIOLOGY: reviewed IMPRESSION: 1. Aspiration PNA 2. Septic Shock present on admission 3. Debility 4. Dementia 5. hx of CVA PLAN: Change to Cefepime Plan for 7 days of Cefepime total. Thank you for the consult! DISCUSSED WITH RT/RN Fay Conrad MSN, CONFECTIONERY MAKER, AGACNP-BC DAJUAN SANTANA M.D
[2019-11-16] MEDS: ACETAMINOPHEN 325 MG/10 ML UDC PEG PRN (16:26)
[2019-11-16] MEDS: KETOROLAC TROMETHAMINE 30 MG/ML VIAL IM PRN (16:56)
[2019-11-16] MEDS ORDERED: LORAZEPAM INJ 2 MG/ML VIAL IV ONE (17:30)
--- NOTE | 2019-11-16 18:45 | NUR ---
Report received. Assumed care. Assessment done. See interventions. O2 per NC @ 2L. PEG tube with Glucerna @ 50ml/hr with 40ml H2O @ 6hr.
[2019-11-16] MEDS: NOREPINEPHRINE INJ 4MG/4ML 8 MG in DEXTROSE 5% 250ML 250 ML IV SCH (21:30)
[2019-11-16] MEDS: ATORVASTATIN 20 MG TAB PEG SCH (21:32)
[2019-11-16] MEDS: CEFEPIME 1GM/NS 0.9% 50 ML 50 ML IV SCH (21:53)
[2019-11-17] VITALS (18 sets, daily range): BP systolic 100–157; BP diastolic 42–89
[2019-11-17] MEDS: INSULIN LISPRO 100 UNIT/1 ML 3ML VIAL SQ SCH ×4 (00:13→19:18)
[2019-11-17 04:43] LABS: BASOPHILS % 0.4 % (0.0-1.0); EOSINOPHILS # (AUTO) 0.4 (0.0-0.4); EOSINOPHILS % 4.4 % (0.0-6.0); HEMATOCRIT 25.2 % (34.2-44.1); HEMOGLOBIN 7.5 g/dL (12.0-16.0); LYMPHOCYTES # (AUTO) 1.7 (1.0-3.2); LYMPHOCYTES % 20.6 % (18.0-39.1); MEAN CORPUSCULAR HEMOGLOBIN 29.8 pg (28-32); MEAN CORPUSCULAR HGB CONC 29.8 g/dL (31-35); MONOCYTES # (AUTO) 0.8 (0.2-0.8); MONOCYTES % 10.3 % (4.4-11.3); NEUTROPHILS # (AUTO) 5.2 (2.1-6.9); NEUTROPHILS % 63.9 % (38.7-80.0); PLATELET COUNT 261 x10e3/uL (140-360); RED BLOOD COUNT 2.52 x10e6/uL (3.6-5.1); RED CELL DISTRIBUTION WIDTH 18.6 % (11.7-14.4)
[2019-11-17 05:01] LABS: ALANINE AMINOTRANSFERASE 23 IU/L (0-55); ALBUMIN 2.1 g/dL (3.5-5.0); ALBUMIN/GLOBULIN RATIO 0.8 (0.8-2.0); ALKALINE PHOSPHATASE 89 IU/L (40-150); ANION GAP 12.2 mmol/L (8-16); BLOOD UREA NITROGEN 16 mg/dL (7-26); BUN/CREATININE RATIO 32 (6-25); CALCIUM 7.6 mg/dL (8.4-10.2); CARBON DIOXIDE 27 mmol/L (22-29); CHLORIDE 113 mmol/L (98-107); EST GLOMERULAR FILTRATION RATE > 60 ML/MIN (60-); GLUCOSE 146 mg/dL (74-118); MAGNESIUM 1.8 MG/DL (1.3-2.1); POTASSIUM 4.2 mmol/L (3.5-5.1); SODIUM 148 mmol/L (136-145)
[2019-11-17] MEDS: CEFEPIME 1GM/NS 0.9% 50 ML 50 ML IV SCH ×3 (05:52→22:22)
[2019-11-17] MEDS: ALBUTEROL SULF 0.083% NEB SOLN 3 ML NEB NEB PRN ×2 (07:25→18:30)
[2019-11-17] MEDS: ACETYLCYSTEINE 200 MG/ML 4ML VIAL INH SCH ×2 (07:34→18:30)
[2019-11-17] MEDS: ASPIRIN 81 MG CHEW TAB PEG SCH (08:40)
[2019-11-17] MEDS: CITALOPRAM HYDROBROMIDE 20 MG TAB PEG SCH (08:40)
[2019-11-17] MEDS: MEMANTINE 10 MG TAB PEG SCH ×2 (08:41→21:00)
[2019-11-17] MEDS: APIXABAN 5 MG TABLET PO SCH ×2 (08:41→19:13)
[2019-11-17] MEDS: LEVETIRACETAM ORAL SOLUTION 500 MG/5 ML SOLN PEG SCH ×2 (08:41→20:59)
[2019-11-17] MEDS: OMEPRAZOLE 20 MG CAP PEG SCH (08:41)
[2019-11-17] MEDS: VALPROATE 250MG/5ML ORAL LIQ 5ml PEG SCH ×2 (08:42→20:58)
--- NOTE | 2019-11-17 08:44 | Progress Note ---
DATE: SUBJECTIVE: The patient is a 69-year-old female, in ICU 189. The patient admitted to the ICU for hypertension and severe sepsis. Currently, the patient is doing better. Blood pressure raised up yesterday and Levophed has been stopped. OBJECTIVE: VITAL SIGNS: Temperature is 98, blood pressure is 112/55, pulse ox 100%, and O2 of 2 L. HEENT: Normocephalic and atraumatic. The patient is nonverbal. CVS: S1 and S2. Regular. ABDOMEN: Soft. PEG tube in place. No signs of excoriation. EXTREMITIES: No clubbing, no cyanosis, no edema. Positive for decubitus ulcers. LABORATORY STUDIES: White count is down to 8.15, hemoglobin of 7.5, hematocrit 25.2, RDW of 18.6. Chemistries; sodium of 148, BUN of 16 and creatinine 0.50. Glucoses have been running normal. ASSESSMENT: This is Ms. Garibay with: 1. Severe sepsis. 2. History of COVID pneumonia. 3. Aspiration pneumonia. 4. Toxic, metabolic, ischemic encephalopathy. PLAN: Continue current management. Continue on current antibiotic regimen. Off the Levophed. The patient can be transferred back to [facility]. Continue to monitor the patient. Consultants on the board, Pulmonology, Neurology, and Cardiology. Further recommendation per clinical course. Prognosis remain guarded in lieu of her multiple medical conditions. MD JAGJIT Croft/MODL /[id number]
[2019-11-17] MEDS: MIDODRINE HCL 5 MG TABLET PEG SCH ×3 (09:00→21:00)
[2019-11-17] MEDS ORDERED: DEXTROSE 5% 1,000 ML IV SCH (09:15)
--- NOTE | 2019-11-17 14:28 | NUR ---
WOUND CARE CONSULT 69 YO FEMALE HX OF AMS,UTI,DYSPNEA YUDELKA 0N CONSERVATIVE / MODERATE PUP STATUS AND INTERVENTIONS LABS: WBC- 8.15 HGB- 7.5 GLUCOSE-146 SKIN ASSESSMENT COMPLETE PATIENT PRESENTS WITH RIGHT GLUTEAL STAGE 2 ULCERATION 0.5CM X0.5CM X0.1 RIGHT HEEL UNSTAGEABLE ULCERATION 50%SLOUGH 50% ESCHAR 6CM X4CM LEFT HEEL STAGE 2 ULCERATION 0.5CM X1CM X0.2CM RECOMMENDATIONS: NURSING TO CONTINUE TO MONITOR PATIENT AND KEEP SKIN CLEAN AND FREE FROM LOOSE STOOL OR IRRITATING MOISTURE AND CONTINUE TO FOLLOW MODERATE PUP INTERVENTIONS NURSING TO CONTINUE TO GET PATIENT OUT OF BED FOR MEALS AND MUCH TOLERATED NURSING TO CLEAN SACRAL STAGE 2 ULCERATION WITH NORMAL SALINE DAILY AND APPLY VENELEX OINTMENT AND COVER WITH ALLEVYN FOAM DRESSING NURSING TO CLEAN RIGHT HEEL US ULCERATION ULCERATION WITH NORMAL SALINE DAILY AND APPLY SANTYL OINTMENT TO WOUND BASED .. AND COVER [id number] REGINA AND ALLEVYN FOAM DRESSING NURSING TO CLEAN LEFT HEEL STAGE 2 ULCERATION WITH NORMAL SALINE DAILY AND APPLY PURACOL (COLLAGEN) TO WOUND BASE .. AND COVER WITH ALLEVYN FOAM DRESSING Addendum: 11/17/19 at 1436 by Deshaun Almaguer RN Amended: Links added.
--- NOTE | 2019-11-17 17:00 | NUR ---
Received patient from ICU patient arrived in bed, non-verbal tube feed Glucerna, has right upper arm PICC line, Navarro to gravity, heel protectors in place and Allevyn dressing to buttocks, and bilateral heels. Bed alarm in place bed in low position, breaks in place and call light within reach.
--- NOTE | 2019-11-17 17:46 | Progress Note ---
DATE: SUBJECTIVE: Ms. Barker remains in intensive care unit. She seems comfortable. The patient comes in with hypertension and sepsis. She is currently doing better. OBJECTIVE: VITAL SIGNS: Stable, afebrile. Temperature 98.0, heart rate of 82. HEENT: Normocephalic. Not icteric. NECK: Supple. CHEST: Few crackles. HEART: S1 and S2. ABDOMEN: Soft. Bowel sounds present. EXTREMITIES: No edema. SKIN: No rash. IMPRESSION: Sepsis on admission, aspiration pneumonia, metabolic encephalopathy, and history of COVID-19. The patient continued to improve. She is currently on cefepime for aspiration pneumonia. Plan to finish 8 days. Discussed with the medical team. Recheck CBC. Recheck chem panel. Further recommendations to follow. MD STEVE Donato/XIMENA /[id number]
[2019-11-17] MEDS ORDERED: ACETYLCYSTEINE 200 MG/ML 4ML VIAL ONE (18:41)
[2019-11-17] MEDS ORDERED: ALBUTEROL SULF 0.083% NEB SOLN 3 ML NEB ONE (18:42)
[2019-11-17] MEDS ORDERED: APIXABAN 5 MG TABLET ONE (18:42)
--- NOTE | 2019-11-17 19:30 | NUR ---
Pt. alert, opens eyes, making incomprehensible sounds. Oxygen is on 2L per nasal cannula.Respirations are even and unlabored. Glucerna infusing at 65ml/hr via peg tube. Picc line to her R upper arm is patent and intact. Navarro catheter is patent and intact draining yellow urine.
[2019-11-17] MEDS: ATORVASTATIN 20 MG TAB PEG SCH (21:00)
--- NOTE | 2019-11-17 23:10 | NUR ---
Peg site care done.
[2019-11-18] VITALS (7 sets, daily range): BP systolic 136–165; BP diastolic 71–95
[2019-11-18] MEDS: INSULIN LISPRO 100 UNIT/1 ML 3ML VIAL SQ SCH ×5 (00:20→23:48)
[2019-11-18 06:28] LABS: BASOPHILS # (AUTO) 0.1 (0.0-0.1); BASOPHILS % 0.6 % (0.0-1.0); EOSINOPHILS # (AUTO) 0.4 (0.0-0.4); EOSINOPHILS % 4.3 % (0.0-6.0); HEMATOCRIT 28.7 % (34.2-44.1); HEMOGLOBIN 8.7 g/dL (12.0-16.0); LYMPHOCYTES # (AUTO) 1.8 (1.0-3.2); LYMPHOCYTES % 20.2 % (18.0-39.1); MEAN CORPUSCULAR HEMOGLOBIN 29.5 pg (28-32); MEAN CORPUSCULAR HGB CONC 30.3 g/dL (31-35); MEAN CORPUSCULAR VOLUME 97.3 fL (81-99); MONOCYTES # (AUTO) 0.9 (0.2-0.8); MONOCYTES % 9.7 % (4.4-11.3); NEUTROPHILS # (AUTO) 5.8 (2.1-6.9); NEUTROPHILS % 64.3 % (38.7-80.0); PLATELET COUNT 272 x10e3/uL (140-360); RED BLOOD COUNT 2.95 x10e6/uL (3.6-5.1); RED CELL DISTRIBUTION WIDTH 18.1 % (11.7-14.4)
[2019-11-18] MEDS: CEFEPIME 1GM/NS 0.9% 50 ML 50 ML IV SCH ×3 (06:34→21:02)
[2019-11-18 06:36] LABS: ANION GAP 14.3 mmol/L (8-16); BLOOD UREA NITROGEN 14 mg/dL (7-26); BUN/CREATININE RATIO 26 (6-25); CALCIUM 7.8 mg/dL (8.4-10.2); CARBON DIOXIDE 27 mmol/L (22-29); CHLORIDE 104 mmol/L (98-107); CREATININE, SERUM 0.53 mg/dL (0.57-1.11); EST GLOMERULAR FILTRATION RATE > 60 ML/MIN (60-); GLUCOSE 238 mg/dL (74-118); POTASSIUM 4.3 mmol/L (3.5-5.1); SODIUM 141 mmol/L (136-145)
--- NOTE | 2019-11-18 08:08 | Progress Note ---
DATE: SUBJECTIVE: The patient is a 69-year-old female, who came in with aspiration pneumonia. The patient is currently better. Labs are trending down. The patient has no overnight problems from nursing staff. OBJECTIVE: VITAL SIGNS: Temperature is 98.7, pulse of 63, blood pressure is 143/73, pulse oximetry of 99% on 2 L of oxygen. HEENT: Normocephalic, atraumatic. Nonverbal. CVS: S1 and S2. Regular. ABDOMEN: Soft. LUNGS: Decreased air entry. Positive for some rhonchi. EXTREMITIES: No clubbing, no cyanosis, no edema. LABORATORY VALUES: From today white count is 9, hemoglobin and hematocrit of 8.7 and 28.7, which is up trending from 7.5 and 25.2. Sodium 141, potassium 4.3, BUN and creatinine 14 and 0.43. Serology, no coronavirus. Microbiology, no growth in the last 48 hours. ASSESSMENT: Ms. Garibay with: 1. Severe sepsis. 2. Aspiration pneumonia. 3. History of coronavirus disease pneumonia. 4. Encephalopathy, which is resolving. PLAN: Continue with current antibiotic regimen. ID on board. Neurology on board and Pulmonary on board. Prognosis remains guarded and secondary to all the multiple comorbidities. Further recommendation per clinical course. We will continue to monitor the patient along with consultants. The chest x-ray is pending today. Yesterday's chest x-ray showed mild pulmonary edema. MD JAGJIT Croft/MODL /[id number]
[2019-11-18] MEDS: ACETYLCYSTEINE 200 MG/ML 4ML VIAL INH SCH ×2 (08:12→20:10)
[2019-11-18] MEDS: ALBUTEROL SULF 0.083% NEB SOLN 3 ML NEB NEB PRN ×2 (08:12→20:10)
--- NOTE | 2019-11-18 08:34 | Diagnostic Imaging Report ---
EXAM: CHEST SINGLE (PORTABLE) DATE: 11/18/2019 6:25 AM INDICATION: Dyspnea COMPARISON: 11/16/2019 FINDINGS: ] PICC line identified in stable position. There is stable elevation of the right hemidiaphragm with associated right basilar atelectasis. Again identified are prominent interstitial markings throughout the lungs bilaterally, unchanged from prior examination. There is no evidence for new large focal consolidation, pneumothorax, or significant volume pleural effusion. The cardiomediastinal silhouette is stable in appearance. No acute osseous abnormality is identified. IMPRESSION: No significant interval change from 11/16/2019. Signed by: Dr. Romero Retana MD on 11/18/2019 8:30 AM
[2019-11-18] MEDS: MIDODRINE HCL 5 MG TABLET PEG SCH (09:00)
[2019-11-18] MEDS ORDERED: ATROPINE SULFATE 1 MG/ML VIAL IV PRN (09:00)
[2019-11-18] MEDS: VALPROATE 250MG/5ML ORAL LIQ 5ml PEG SCH ×2 (09:10→21:02)
[2019-11-18] MEDS: LEVETIRACETAM ORAL SOLUTION 500 MG/5 ML SOLN PEG SCH ×2 (09:10→21:02)
[2019-11-18] MEDS: APIXABAN 5 MG TABLET PO SCH ×2 (09:10→17:32)
[2019-11-18] MEDS: OMEPRAZOLE 20 MG CAP PEG SCH (09:10)
[2019-11-18] MEDS: COLLAGENASE OINTMENT 30 GM TUBE TP SCH (09:10)
[2019-11-18] MEDS: CITALOPRAM HYDROBROMIDE 20 MG TAB PEG SCH (09:10)
[2019-11-18] MEDS: MEMANTINE 10 MG TAB PEG SCH ×2 (09:10→21:02)
[2019-11-18] MEDS: ASPIRIN 81 MG CHEW TAB PEG SCH (09:10)
[2019-11-18] MEDS: BALSAM PERU/CASTOR OIL 60 GM OINT...G. TP SCH (09:10)
--- NOTE | 2019-11-18 09:11 | NUR ---
CALLED AND SPOKE WITH DAUGHTER RAFA WHOM STATES WISH IS TO RETURN PT TO [facility], GAVE PERMISSION TO START PROCESS BUT STATES WANTS TO BE SURE SHE IS READY.
--- NOTE | 2019-11-18 10:51 | NUR ---
FAXED CLINICALS TO [facility], NOTIFIED [facility] ON [address].
[2019-11-18 14:47] LABS: ABG PH 7.46 (7.35-7.45)
[2019-11-18] MEDS: KETOROLAC TROMETHAMINE 30 MG/ML VIAL IM PRN (15:31)
--- NOTE | 2019-11-18 15:32 | NUR ---
Nutrition Intervention Note RD Recommendation(s) for Physician: - Recommend Glucerna 1.5 @ goal rate of 50 mL/hr (provides 1800 kcal, 99 g protein) - Water/fluid management per MD Plan of Care: RD following, monitoring for tolerance and adequacy, tube feed recommendation Nutrition reason for involvement: follow up RD Assessment 11/17: Follow up. Chart reviewed. Pt is tolerating tube feeding at 65 mL/hr per RN. Will continue to monitor. (11/13/19) Pt is a 69 year old female admitted with AMS, UTI, and dyspnea. Unable to obtain nutrition history from pt since it is noted that the pt is non-verbal. Pt is from a assisted and receives Glucerna 1.5 per chart on unit. There are no previous weights in chart and pt has a recorded height of 4 foot 4 inches (unable to determine accuracy of pts height). Recommendations provided. Will continue to monitor. Principal Problems/Diagnoses: AMS, UTI, dyspnea PMH: cerebral infarction due to stenosis of left carotid artery. 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 GI: last recorded BM 11/12, soft/non-tender abdomen Skin: stage 2 gluteal and left heel pressure ulcers (wound care note 11/16) Labs: 11/17: Na 141, K 4.3, BUN 14, Cr 0.53, Glu 238, Ca 7.8 (11/12) Na 149, K 3.1, BUN 11, Cr 0.59, Glu 257, Ca 8.0, AST 38 Meds: insulin, antibiotic, atorvastatin, lactulose Ht: 52 inches (unable to determine accuracy of ht) Wt: 180 lbs (11/16) 160 lbs (11/11) Suspect possible weight error BMI: - - (unable to determine accuracy of ht) IBW: - - (unable to determine accuracy of ht) Malnutrition Evaluation (11/13/19) The patient does not meet criteria for a specified degree of malnutrition at this time. Will re-evaluate at follow-up as appropriate. Nutrition Prescription (Diet Order): Glucerna 1.5 @ 65 mL/hr (provides 2340 kcal, 129 g protein) Estimated Nutritional Needs: - unable to determine accuracy of height 9005-2777 calories/day (25-30 kcal/kg CBW) using wt of 160 lbs 73-109 g protein/day (1-1.5 g pro/kg CBW) using wt of 160 lbs Diet Adequacy: meeting calorie needs, meeting protein needs Tolerance: tolerating TF Diet Education Needs Assessment: Diet education not indicated Nutrition Care Level: moderate Nutrition Diagnosis: Inadequate oral intake related to decreased ability to consume sufficient energy as evidenced by need for enteral nutrition. Goal: Patient will meet 75-100% of estimated needs by follow up Progress: tube feed is at ordered goal rate Interventions: - Composition, Rate, Route, Recommended Modifications Monitoring/Evaluation: -Total energy intake, Total protein intake, Formula/Solution, Weight change Signed: Yue Diggs RD, LD
--- NOTE | 2019-11-18 16:45 | NUR ---
INFORMED DR GOEL THAT PATIENT COUGHING AND INCREASED SECRETIONS WITH SMALL AMOUNT OF TUBE FEEDING FROM MOUTH AND NOSE, NO RESIDUAL OBSERVED FROM PEG. ORDERS RECEIVED TO DECREASE TF TO 50 MLS/HR AND CONTINUE TO MONITOR RESIDUAL.
--- NOTE | 2019-11-18 17:14 | NUR ---
Ms. Barker OUT OF icu weak . She seems comfortable. lots of secretions The patient comes in with hypertension and sepsis. She is currently doing better. OBJECTIVE: VITAL SIGNS: Stable, afebrile. Temperature 98.0, heart rate of 82. HEENT: Normocephalic. Not icteric. NECK: Supple. CHEST: Few crackles. HEART: S1 and S2. ABDOMEN: Soft. Bowel sounds present. s/p peg EXTREMITIES: No edema. SKIN: No rash. IMPRESSION: Sepsis on admission, aspiration pneumonia,resolved metabolic encephalopathy, and history of COVID-19. The patient continued to improve. CHF DEBILITY She is currently on cefepime for aspiration pneumonia. Plan to finish 8 days. consider DNR Discussed with the medical team. Recheck CBC. Recheck chem panel. POOR PROGNOSIS
[2019-11-18] MEDS: ATORVASTATIN 20 MG TAB PEG SCH (21:02)
[2019-11-18] MEDS ORDERED: SODIUM CHLORIDE 0.9% 250ML 250 ML ONE (21:25)
--- NOTE | 2019-11-18 23:53 | Consultation ---
DATE OF CONSULTATION: Cardiology Consult Note REASON FOR CONSULTATION: Bradycardia. CONSULTING PHYSICIAN: Dr. Cortez. CHIEF COMPLAINT: Acute mental status change as well as respiratory difficulty. HISTORY OF PRESENT ILLNESS: Ms. Lucero Garibay is an unfortunate 69-year-old female with a past medical history that is complicated, which also includes history of cerebral infarction due to stenosis of left carotid artery, seizure disorder secondary to likely ischemic encephalopathy, essential hypertension, type 2 diabetes mellitus with unknown complications, moderate protein-calorie malnutrition, history of recent pneumonia as well as COVID, hyperlipidemia, dementia with behavioral disturbances, Alzheimer's and frequent UTIs. She presented to the hospital where she previously and usually lives in a penitentiary at [facility]. Over there, she was seen in respiratory distress and was brought to the emergency room at [facility] for further evaluation and she also had acute mental status changes. Currently, the patient is nonverbal and has significant respiratory secretions, as such, all history was obtained through chart review as well as discussion with the nurse, who is taking care of her and who was also taking care of at her penitentiary previously. The nurse reports that prior to her COVID infection, the patient had actually been doing quite well and over the past several months, she has had a considerable decline in her usual state of health, this story is also corroborated with discussion with the patient's [id number], who can be reached at #[phone]. I was consulted in regard to episodes of bradycardia that was noted on telemetry. It is now seen to be a coinciding factor that led to these episodes of bradycardia and in fact when she was suctioned, she was tachycardic. I have reviewed the telemetry and this shows several episodes of bradycardia with heart rate below 40 beats per minute. There is one particular telemetry strip that has suspicion for additional P-waves, however, these did not march out and may in fact this is secondary to artifact. PAST MEDICAL HISTORY: As per the HPI above, which also includes, protein-calorie malnutrition, PEG tube placement, type 2 diabetes mellitus with unknown complications, dementia, seizure disorder, ischemic encephalopathy, history of cerebral infarction, cerebellar stroke syndrome, frequent UTIs and history of COVID infection and respiratory illness. MEDICATIONS: The patient takes acetaminophen 325 mg q.4 hours as needed for fever, albuterol 0.63/3 mL nebulizers, apixaban 5 mg twice a day, aspirin 81 mg daily, atorvastatin 20 mg at night time, citalopram 20 mg, Depakote 125 mg, lactulose p.r.n., Keppra 1000 mg twice a day, Namenda 5 mg twice a day, previously on midodrine, and omeprazole 40 mg daily. SOCIAL HISTORY: The patient was in a penitentiary at usual state of health. Please see the HPI above in regard to her decline over the past several months, which is corroborated with the patient's nurse as well as sister in law. It is unknown whether she has a prior smoking history of alcohol use given that I am unable to enquire history from the patient herself. FAMILY HISTORY: Unable to acquire history from the patient herself. ALLERGIES: NO DRUG ALLERGIES WERE NOTED. REVIEW OF SYSTEMS: Unable to be obtained due to the patient's mental status and inability to provide this information. PHYSICAL EXAMINATION: VITAL SIGNS: Most recent vitals include temperature 98.3 Fahrenheit, pulse 57, respiratory rate 20, blood pressure 158/74 with a mean of 102 mmHg, and pulse oximetry 95% on room air. The patient has a reported weight of 160 pounds. GENERAL: The patient is frail, cachectic, and ill appearing. She appears older than stated age. HEENT: Normocephalic and atraumatic. Dry mucous membranes. NECK: Supple. No JVD is noted. HEART: Difficult to auscultate her heart tones due to significant rhonchi and referred breath sounds. However, it appears to be in sinus with no significant murmur. LUNGS: Considerable rhonchi in upper airway noises are noted throughout the lung ortiz. No wheezes are noted. ABDOMEN: Soft, nontender, and nondistended. Feeding tube is noted. EXTREMITIES: With some swelling. Otherwise no cyanosis or clubbing. NEUROLOGIC: Unable to examine adequately given that the patient does not adequately follow directions. PSYCHIATRY: Unable to examine adequately given that the patient does not adequately follow directions. LABORATORY DATA: Reviewed, which include most recently, her white blood cell count of 14, hemoglobin 9, hematocrit 30, and platelets 285. Her chemistry includes most recently sodium of 141, potassium 4.3, chloride 104, carbon dioxide 27, anion gap of 14, BUN 14, creatinine 0.5, glucose 238. Her TSH is mildly elevated at 9.63. Her most recent coronavirus PCR is not detected. The patient had an echocardiogram done recently, which resulted on November 13, and which was a technically difficult study with suboptimal views with noted ejection fraction of 70%. Imaging is also reviewed, which includes brain MRI with no acute infarct with generalized volume loss and mild chronic microvascular ischemic changes. The chest CT with small amount of peripheral and eccentric chronic-appearing nonocclusive pulmonary artery stenting to upper branch with no signs of right heart strain. There is an indwelling IVC filter. There is debris identified within the main stem trachea and left lower lobe rhonchi with patchy basilar airspace opacities concerning for aspiration and multifocal infection. ASSESSMENT AND PLAN: This is a rather unfortunate 69-year-old female, who is very frail with extensive comorbidities as indicated above, we are consulted on in regard to bradycardic episode that are noted on telemetry. Review of the telemetry indicates that these are consistent with sinus bradycardia and she had significant respirophasic changes in the heart rate as well that are noted. There is one suspicious looking strip, for which there appeared to be extra P-waves on the strip, however, these do not watch out in any particular manner and looking at the other leads, I am more incline to believe that this would be artifact rather than a second degree or higher AV block. Review of the vitals indicates that the blood pressure is not particularly affected by the bradycardia. I spoke extensively with the patient's [id number] and she stated that she wants to discuss with the patient's brother in regard to the overall prognosis for this unfortunate patient. I am more incline to treat her bradycardia conservatively with removal of any offending medications. Her echocardiogram although limited showed a robust ejection fraction. A potential clarity could include a pacemaker insertion, however, this is not I want to take the patient down given her extensive comorbidities as well as poor prognosis and essentially her hemodynamics not being affected by the bradycardia. At this time, we can continue to monitor her on telemetry and manage the bradycardia conservatively. The patient's [id number] will discuss with the patient's brother in regard to overall code status and will come to a decision for her overall health. Thank you for this interesting consult. I will continue to follow the patient with you. MD ISHMAEL Grant/XIMENA /[id number]
[2019-11-19] VITALS (8 sets, daily range): BP systolic 60–148; BP diastolic 51–93
[2019-11-19 04:00] LABS: BASOPHILS % 0.3 % (0.0-1.0); EOSINOPHILS # (AUTO) 0.2 (0.0-0.4); EOSINOPHILS % 2.4 % (0.0-6.0); HEMOGLOBIN 8.4 g/dL (12.0-16.0); LYMPHOCYTES # (AUTO) 1.9 (1.0-3.2); MEAN CORPUSCULAR HEMOGLOBIN 28.3 pg (28-32); MEAN CORPUSCULAR VOLUME 94.3 fL (81-99); MONOCYTES % 9.9 % (4.4-11.3); NEUTROPHILS # (AUTO) 6.9 (2.1-6.9); NEUTROPHILS % 67.7 % (38.7-80.0); PLATELET COUNT 298 x10e3/uL (140-360); RED BLOOD COUNT 2.97 x10e6/uL (3.6-5.1); RED CELL DISTRIBUTION WIDTH 17.9 % (11.7-14.4)
[2019-11-19 04:15] LABS: ANION GAP 14.3 mmol/L (8-16); BLOOD UREA NITROGEN 15 mg/dL (7-26); BUN/CREATININE RATIO 28 (6-25); CALCIUM 7.9 mg/dL (8.4-10.2); CARBON DIOXIDE 27 mmol/L (22-29); CHLORIDE 101 mmol/L (98-107); CREATININE, SERUM 0.53 mg/dL (0.57-1.11); EST GLOMERULAR FILTRATION RATE > 60 ML/MIN (60-); GLUCOSE 162 mg/dL (74-118); POTASSIUM 4.3 mmol/L (3.5-5.1); SODIUM 138 mmol/L (136-145)
[2019-11-19] MEDS: CEFEPIME 1GM/NS 0.9% 50 ML 50 ML IV SCH (06:16)
[2019-11-19] MEDS: INSULIN LISPRO 100 UNIT/1 ML 3ML VIAL SQ SCH ×4 (06:26→17:22)
[2019-11-19] MEDS ORDERED: DEXTROSE 50% SYRINGE 50 ML IV PRN (07:00)
[2019-11-19] MEDS ORDERED: INSULIN LISPRO 100 UNIT/1 ML 3ML VIAL SQ SCH (07:30)
--- NOTE | 2019-11-19 07:50 | NUR ---
CHECKED WITH FACILITY, STILL PENDING AUTH
[2019-11-19] MEDS: ALBUTEROL SULF 0.083% NEB SOLN 3 ML NEB NEB PRN ×2 (07:58→20:15)
[2019-11-19] MEDS: ACETYLCYSTEINE 200 MG/ML 4ML VIAL INH SCH ×2 (07:58→20:15)
--- NOTE | 2019-11-19 08:59 | Progress Note ---
DATE: SUBJECTIVE: A 69-year-old female who came in with aspiration pneumonia, currently, patient is feeling better. Had one episode of bradying down to the 40s yesterday. Atropine was given. The patient is currently on and also on cefepime antibiotics. The patient is feeling better according to nurses. No events thomas's yesterday, on anticoagulation at this time. OBJECTIVE: VITAL SIGNS: Temperature is 99.3, pulse of 76, respirations of 21, blood pressure is 127/51, pulse oximetry 100% on 2 L. HEENT: Normocephalic, atraumatic. Positive for rhonchi bilaterally. ABDOMEN: Soft, nontender, nondistended. PEG tube in place. No sign of leakage. EXTREMITIES: No clubbing. No cyanosis. Trace edema. Positive for decubitus ulcer on the heel. LABORATORY VALUES: Today, white count is 10.3, hemoglobin 8.4, hematocrit 28.0. Chemistry: Sodium 138, potassium of 4.3, BUN of 13, creatinine 0.53. Glucoses have been running in the 205 to 265. ASSESSMENT: Ms. Lucero Garibay with: 1. Aspiration pneumonia. 2. Encephalopathy. 3. Hypertension. 4. Uncontrolled diabetes. 5. History of cerebrovascular accident. 6. History of atrial fibrillation. PLAN: Continue with current medication. IV cefepime for short course. The patient will go and increase the insulin sliding scale to a medium dose. The bradycardia is better. We will continue with Eliquis for anticoagulation. Further recommendation per clinical course. We will continue monitor the patient. SNF order has been done for evaluation. MD JAGJIT Croft/MODL /[id number]
--- NOTE | 2019-11-19 09:04 | Diagnostic Imaging Report ---
EXAMINATION: CHEST SINGLE (PORTABLE) INDICATION: Shortness of breath COMPARISON: Chest radiograph 11/18/2019 FINDINGS: LINES/TUBES:Right PICC line terminates in the SVC. EKG leads overlie the chest. LUNGS:The lung volumes remain low. Unchanged bibasilar patchy opacities. PLEURA:No pleural effusion or pneumothorax. MEDIASTINUM:The cardiomediastinal silhouette appears unchanged in size and shape. BONES/SOFT TISSUES:No acute osseous injury. ABDOMEN:No free air under the diaphragm. IVC filter in place. IMPRESSION: No significant interval change. Signed by: Nery Camargo MD on 11/19/2019 9:00 AM
[2019-11-19] MEDS: BALSAM PERU/CASTOR OIL 60 GM OINT...G. TP SCH (09:32)
[2019-11-19] MEDS: VALPROATE 250MG/5ML ORAL LIQ 5ml PEG SCH ×2 (09:37→20:08)
[2019-11-19] MEDS: COLLAGENASE OINTMENT 30 GM TUBE TP SCH (09:38)
[2019-11-19] MEDS: OMEPRAZOLE 20 MG CAP PEG SCH (09:45)
[2019-11-19] MEDS: LEVETIRACETAM ORAL SOLUTION 500 MG/5 ML SOLN PEG SCH ×2 (09:45→20:08)
[2019-11-19] MEDS: APIXABAN 5 MG TABLET PO SCH ×2 (09:45→16:06)
[2019-11-19] MEDS: ASPIRIN 81 MG CHEW TAB PEG SCH (09:45)
[2019-11-19] MEDS: MEMANTINE 10 MG TAB PEG SCH ×2 (09:45→20:08)
[2019-11-19] MEDS: ACETAMINOPHEN 325 MG/10 ML UDC PEG PRN ×2 (09:50→20:09)
--- NOTE | 2019-11-19 13:48 | NUR ---
CHECKED WITH FACILITY, SUBMITTED TO INSURANCE, STILL PENDING. PACKET IS IN OFFICE.
--- NOTE | 2019-11-19 15:48 | NUR ---
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
[2019-11-19] MEDS: PRAMIPEXOLE DIHYDROCHLORIDE 0.25 MG TAB PO SCH (16:31)
--- NOTE | 2019-11-19 18:02 | Progress Note ---
DATE: 11/19/2019 SUBJECTIVE: Ms. Garibay remains in the hospital, comfortable, confused. PHYSICAL EXAMINATION: VITAL SIGNS: Her vital signs are stable. Afebrile. HEENT: She is not icteric. NECK: Supple. CHEST: Few rhonchi. HEART: S1, S2. ABDOMEN: Soft. Bowel sounds present. EXTREMITIES: No edema. SKIN: No rash. IMPRESSION: 1. Respiratory failure, resolved; aspiration pneumonia, encephalopathy, hypertension, diabetes mellitus, history of cerebrovascular accident, atrial fibrillation. 2. Apparently her white count is normal. Can discontinue antibiotic, PT/OT, swallow evaluation. We will follow. MD STEVE Donato/XIMENA /[id number]
--- NOTE | 2019-11-19 19:08 | NUR ---
Patient transferred to [facility] at 1615. BG 98, insulin drip titrated down to 1 unit per protocol. Addendum: 11/19/19 at 1914 by Allison Ward RN Please disregard note entered in error.
--- NOTE | 2019-11-19 19:14 | NUR ---
Patient had large liquid stool. Dr. Cortez informed of patients lung sounds and weak cough, deep suctioning ordered. Dr Burgos informed of swelling to RUE, doppler ordered. Wound care done to bilateral heels per order.
[2019-11-19] MEDS: ATORVASTATIN 20 MG TAB PEG SCH (20:08)
[2019-11-20] VITALS: BP 124/60
[2019-11-20] MEDS: INSULIN LISPRO 100 UNIT/1 ML 3ML VIAL SQ SCH ×4 (00:47→17:50)
[2019-11-20] MEDS: KETOROLAC TROMETHAMINE 30 MG/ML VIAL IM PRN (02:08)
[2019-11-20 04:00] VITALS: BP 143/59
[2019-11-20 04:12] LABS: BASOPHILS # (AUTO) 0.1 (0.0-0.1); BASOPHILS % 0.6 % (0.0-1.0); EOSINOPHILS # (AUTO) 0.3 (0.0-0.4); EOSINOPHILS % 3.5 % (0.0-6.0); HEMOGLOBIN 8.1 g/dL (12.0-16.0); LYMPHOCYTES % 22.8 % (18.0-39.1); MEAN CORPUSCULAR HEMOGLOBIN 28.3 pg (28-32); MEAN CORPUSCULAR VOLUME 94.4 fL (81-99); MONOCYTES # (AUTO) 0.8 (0.2-0.8); MONOCYTES % 9.2 % (4.4-11.3); NEUTROPHILS # (AUTO) 5.6 (2.1-6.9); NEUTROPHILS % 63.2 % (38.7-80.0); PLATELET COUNT 291 x10e3/uL (140-360); RED BLOOD COUNT 2.86 x10e6/uL (3.6-5.1); RED CELL DISTRIBUTION WIDTH 18.1 % (11.7-14.4)
[2019-11-20 04:31] LABS: ANION GAP 13.5 mmol/L (8-16); BLOOD UREA NITROGEN 13 mg/dL (7-26); BUN/CREATININE RATIO 24 (6-25); CALCIUM 7.6 mg/dL (8.4-10.2); CARBON DIOXIDE 27 mmol/L (22-29); CHLORIDE 99 mmol/L (98-107); CREATININE, SERUM 0.55 mg/dL (0.57-1.11); EST GLOMERULAR FILTRATION RATE > 60 ML/MIN (60-); GLUCOSE 272 mg/dL (74-118); POTASSIUM 4.5 mmol/L (3.5-5.1); SODIUM 135 mmol/L (136-145)
[2019-11-20 08:00] VITALS: BP 141/60
--- NOTE | 2019-11-20 08:08 | NUR ---
CONTACTED FACILITY, AUTH IS STILL PENDING
--- NOTE | 2019-11-20 08:13 | NUR ---
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
[2019-11-20] MEDS: VALPROATE 250MG/5ML ORAL LIQ 5ml PEG SCH ×2 (08:15→21:24)
[2019-11-20] MEDS: MEMANTINE 10 MG TAB PEG SCH ×2 (08:15→21:24)
[2019-11-20] MEDS: ASPIRIN 81 MG CHEW TAB PEG SCH (08:15)
[2019-11-20] MEDS: PRAMIPEXOLE DIHYDROCHLORIDE 0.25 MG TAB PO SCH ×2 (08:15→17:29)
[2019-11-20] MEDS: LEVETIRACETAM ORAL SOLUTION 500 MG/5 ML SOLN PEG SCH ×2 (08:15→21:24)
[2019-11-20] MEDS: OMEPRAZOLE 20 MG CAP PEG SCH (08:15)
[2019-11-20] MEDS: ACETYLCYSTEINE 200 MG/ML 4ML VIAL INH SCH ×2 (08:20→19:30)
[2019-11-20] MEDS: ALBUTEROL SULF 0.083% NEB SOLN 3 ML NEB NEB PRN ×2 (08:20→19:30)
--- NOTE | 2019-11-20 09:24 | Diagnostic Imaging Report ---
EXAMINATION: CHEST SINGLE (PORTABLE) INDICATION: Shortness of breath COMPARISON: Chest radiograph 11/19/2019 FINDINGS: LINES/TUBES:Right PICC line unchanged. EKG leads overlie the chest. LUNGS:The lung volumes remain relatively low. Unchanged bibasilar opacities. PLEURA:No pleural effusion or pneumothorax. MEDIASTINUM:The cardiomediastinal silhouette appears unchanged in size and shape. Atherosclerotic calcifications of the thoracic aorta. BONES/SOFT TISSUES:No acute osseous injury. ABDOMEN:No free air under the diaphragm. IMPRESSION: No significant interval change. Signed by: Nery Camargo MD on 11/20/2019 9:20 AM
[2019-11-20] MEDS: COLLAGENASE OINTMENT 30 GM TUBE TP SCH (10:00)
[2019-11-20] MEDS: APIXABAN 5 MG TABLET PO SCH ×2 (10:00→17:29)
[2019-11-20] MEDS: BALSAM PERU/CASTOR OIL 60 GM OINT...G. TP SCH (10:00)
[2019-11-20 12:00] VITALS: BP 160/60
[2019-11-20] MEDS: CEFEPIME 1GM/NS 0.9% 50 ML 50 ML IV SCH ×2 (12:28→20:45)
[2019-11-20 16:00] VITALS: BP 166/97
[2019-11-20] MEDS: ACETAMINOPHEN 325 MG/10 ML UDC PEG PRN (16:17)
--- NOTE | 2019-11-20 18:58 | Progress Note ---
DATE: SUBJECTIVE: Ms. Garibay remains in the hospital. She is comfortable and confused. She has left gaze preference with right hemineglect. She follows some command. PHYSICAL EXAMINATION: GENERAL: She is alert, noncommunicative. VITAL SIGNS: Stable, afebrile. HEENT: She is not icteric. NECK: Supple. CHEST: Crackles bilateral. HEART: S1 and S2. ABDOMEN: Soft. Bowel sounds present. EXTREMITIES: No edema. IMPRESSION: Dementia, aspiration pneumonia. The patient finished antibiotic treatment. Continue PT/OT. Discharge planning. Off antibiotics. MD STEVE Donato/MODL /[id number]
--- NOTE | 2019-11-20 19:53 | Progress Note ---
DATE: SUBJECTIVE: The patient is a 69-year-old female, who came in with aspiration pneumonia. She is feeling better, comfortable. Get confused. Has changes of previous strokes. Otherwise, tone good. OBJECTIVE: VITAL SIGNS: Temperature is 98.4, pulse of 97, respirations of 24, and blood pressure is 166/97. HEENT: Normocephalic. Leftward gaze. CVS: S1 and S2 normal. Regular rate and rhythm. ABDOMEN: Soft, nontender, and nondistended. EXTREMITIES: Positive for ulcerations of pressure ulcers. LABORATORY VALUES: White count is 8.89, hemoglobin of 8.1, and hematocrit of 27.0. Chemistries; glucoses have been running in the 150s, sodium is 135, BUN is 13, and creatinine is 0.55. ASSESSMENT: Ms. Barker with: 1. Aspiration pneumonia. 2. Encephalopathy. 3. Uncontrolled diabetes mellitus. 4. History of previous cerebrovascular accident with residual effects. 5. History of atrial fibrillation. PLAN: Continue with current antibiotics. Continue with Eliquis for anticoagulation. SNF consult has been ordered. Further recommendation per clinical course. We will continue to monitor the patient. MD JAGJIT Croft/XIMENA /[id number]
[2019-11-20 20:00] VITALS: BP 149/78
[2019-11-20] MEDS: ATORVASTATIN 20 MG TAB PEG SCH (21:24)
[2019-11-21] VITALS (9 sets, daily range): BP systolic 108–169; BP diastolic 48–91
[2019-11-21] MEDS: INSULIN LISPRO 100 UNIT/1 ML 3ML VIAL SQ SCH ×4 (00:41→18:37)
[2019-11-21] MEDS: CEFEPIME 1GM/NS 0.9% 50 ML 50 ML IV SCH ×3 (03:44→20:49)
[2019-11-21] MEDS: ALBUTEROL SULF 0.083% NEB SOLN 3 ML NEB NEB PRN ×2 (06:30→20:30)
[2019-11-21] MEDS: ACETYLCYSTEINE 200 MG/ML 4ML VIAL INH SCH ×2 (06:30→20:30)
--- NOTE | 2019-11-21 08:45 | Progress Note ---
DATE: SUBJECTIVE: The patient seemed to have no issues overnight. OBJECTIVE: VITAL SIGNS: Temperature 99.7, pulse 109, blood pressure 128/70, sats 94%. GENERAL: She is no apparent distress, lying in bed, but does not communicate well. Does stare at me upon asking questions, but is aphasic. LUNGS: Decreased breath sounds bilaterally. CARDIOVASCULAR: Regular rate and rhythm. ABDOMEN: Good bowel sounds. Soft, nontender. EXTREMITIES: No clubbing or cyanosis. NEUROLOGIC: Noncommunicative. ASSESSMENT/PLAN: 1. Pneumonia, continue with current care with antibiotics. 2. Hypertension, continue with current care monitoring. 3. Bradycardia, seems to be resolved after discontinuation of beta blockers, we will continue to monitor. 4. Dementia, continue with her medication. 5. Hyperlipidemia, continue with her cholesterol medicine. 6. History of seizure disorder, continue with Keppra. 7. Diabetes, continue current care monitoring. 8. Anemia, continue to monitor p.r.n. 9. History of cerebrovascular accident, continue with current therapy. Please see hospital chart for full details. MD SEAN Barbour/MODL /[id number]
[2019-11-21] MEDS: BALSAM PERU/CASTOR OIL 60 GM OINT...G. TP SCH (09:00)
[2019-11-21] MEDS: COLLAGENASE OINTMENT 30 GM TUBE TP SCH (09:00)
[2019-11-21] MEDS: VALPROATE 250MG/5ML ORAL LIQ 5ml PEG SCH ×2 (09:26→21:08)
[2019-11-21] MEDS: APIXABAN 5 MG TABLET PO SCH ×2 (09:27→18:32)
[2019-11-21] MEDS: PRAMIPEXOLE DIHYDROCHLORIDE 0.25 MG TAB PO SCH ×2 (09:27→18:32)
[2019-11-21] MEDS: LEVETIRACETAM ORAL SOLUTION 500 MG/5 ML SOLN PEG SCH ×2 (09:27→21:08)
[2019-11-21] MEDS: MEMANTINE 10 MG TAB PEG SCH ×2 (09:27→21:08)
[2019-11-21] MEDS: OMEPRAZOLE 20 MG CAP PEG SCH (09:27)
[2019-11-21] MEDS ORDERED: CLONIDINE HCL 0.1 MG TAB PEG PRN (10:15)
--- NOTE | 2019-11-21 10:37 | NUR ---
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
--- NOTE | 2019-11-21 10:55 | NUR ---
EEG 30 min study 10/20 international electrode placement EEG read in bipolar and transverse montage EEG data: diffuse slow theta waves no clear anterior beta frequencies right temporal focal slowing anterior left frontal sharp wave - single occurance noted EEG interpretation Abnormal III generalized diffuse slow waves focal slowing right temporal sharp wave, left frontal EEG shows severe diffuse encephalopathy with diffuse slowing in all head regions, focal slowing in right temporal region and a sharp wave discharge concerning for epileptogenicity. no evidence for subclinical seizure captured during this recording but the focal dysfunction and sharp wave endorse possible epileptogenicity
--- NOTE | 2019-11-21 16:12 | Progress Note ---
DATE: SUBJECTIVE: Ms. Garibay is confused, does not seem to be in acute distress. REVIEW OF SYSTEMS: According to medical team, there is nothing new. OBJECTIVE: VITAL SIGNS: Stable, afebrile. HEENT: Normocephalic. NECK: Supple. CHEST: Clear. HEART: S1, S2. ABDOMEN: Soft. Bowel sounds present. EXTREMITIES: No edema. SKIN: No rash. IMPRESSION: 1. Respiratory failure, resolved. 2. Aspiration pneumonia seems to be better. Recurrent aspiration. 3. Dementia. 4. Hyperlipidemia. 5. Diabetes mellitus. From Infectious Disease point of view, continue supportive care. Continue PT/OT. Aspiration precaution. We will follow. MD STEVE Donato/MODL /[id number]
[2019-11-21] MEDS: ATORVASTATIN 20 MG TAB PEG SCH (21:08)
[2019-11-22] VITALS (9 sets, daily range): BP systolic 103–145; BP diastolic 50–91
[2019-11-22] MEDS: INSULIN LISPRO 100 UNIT/1 ML 3ML VIAL SQ SCH ×4 (00:49→18:44)
[2019-11-22] MEDS: CEFEPIME 1GM/NS 0.9% 50 ML 50 ML IV SCH ×3 (04:30→20:43)
[2019-11-22] MEDS: ACETYLCYSTEINE 200 MG/ML 4ML VIAL INH SCH ×2 (06:45→18:25)
[2019-11-22] MEDS: ALBUTEROL SULF 0.083% NEB SOLN 3 ML NEB NEB PRN ×2 (06:45→18:25)
[2019-11-22 07:12] LABS: BASOPHILS % 0.3 % (0.0-1.0); EOSINOPHILS # (AUTO) 0.2 (0.0-0.4); HEMATOCRIT 28.5 % (34.2-44.1); HEMOGLOBIN 8.5 g/dL (12.0-16.0); LYMPHOCYTES # (AUTO) 2.3 (1.0-3.2); LYMPHOCYTES % 18.9 % (18.0-39.1); MEAN CORPUSCULAR HEMOGLOBIN 27.8 pg (28-32); MEAN CORPUSCULAR HGB CONC 29.8 g/dL (31-35); MEAN CORPUSCULAR VOLUME 93.1 fL (81-99); MONOCYTES # (AUTO) 1.1 (0.2-0.8); MONOCYTES % 8.8 % (4.4-11.3); NEUTROPHILS # (AUTO) 8.3 (2.1-6.9); NEUTROPHILS % 69.5 % (38.7-80.0); PLATELET COUNT 324 x10e3/uL (140-360); RED BLOOD COUNT 3.06 x10e6/uL (3.6-5.1)
[2019-11-22 07:36] LABS: ALANINE AMINOTRANSFERASE 26 IU/L (0-55); ALBUMIN 2.7 g/dL (3.5-5.0); ALBUMIN/GLOBULIN RATIO 0.9 (0.8-2.0); ALKALINE PHOSPHATASE 118 IU/L (40-150); ANION GAP 12.2 mmol/L (8-16); BLOOD UREA NITROGEN 10 mg/dL (7-26); BUN/CREATININE RATIO 18 (6-25); CARBON DIOXIDE 26 mmol/L (22-29); CHLORIDE 99 mmol/L (98-107); CREATININE, SERUM 0.57 mg/dL (0.57-1.11); EST GLOMERULAR FILTRATION RATE > 60 ML/MIN (60-); GLUCOSE 238 mg/dL (74-118); MAGNESIUM 1.7 MG/DL (1.3-2.1); POTASSIUM 4.2 mmol/L (3.5-5.1); SODIUM 133 mmol/L (136-145)
[2019-11-22] MEDS: APIXABAN 5 MG TABLET PO SCH ×2 (08:35→18:45)
[2019-11-22] MEDS: OMEPRAZOLE 20 MG CAP PEG SCH (08:35)
[2019-11-22] MEDS: VALPROATE 250MG/5ML ORAL LIQ 5ml PEG SCH ×2 (08:35→21:04)
[2019-11-22] MEDS: LEVETIRACETAM ORAL SOLUTION 500 MG/5 ML SOLN PEG SCH ×2 (08:35→21:05)
[2019-11-22] MEDS: PRAMIPEXOLE DIHYDROCHLORIDE 0.25 MG TAB PO SCH ×2 (08:35→18:45)
[2019-11-22] MEDS: MEMANTINE 10 MG TAB PEG SCH ×2 (08:35→21:05)
[2019-11-22] MEDS: COLLAGENASE OINTMENT 30 GM TUBE TP SCH (12:42)
[2019-11-22] MEDS: BALSAM PERU/CASTOR OIL 60 GM OINT...G. TP SCH (12:42)
--- NOTE | 2019-11-22 15:58 | NUR ---
progress note patient seen and examined chart reviewed events noted discuss medical team medication list reviewed there is no new problems remains confused Ms. Garibay is confused, does not seem to be in acute distress. REVIEW OF SYSTEMS: According to medical team, there is nothing new. OBJECTIVE: VITAL SIGNS: Stable, afebrile. HEENT: Normocephalic. she she is not pale or icteric NECK: Supple. no JVD CHEST: Clear. HEART: S1, S2. ABDOMEN: Soft. Bowel sounds present. EXTREMITIES: No edema. SKIN: No rash. IMPRESSION: 1. Respiratory failure, resolved. 2. Aspiration pneumonia seems to be better. Recurrent aspiration. 3. Dementia. 4. Hyperlipidemia. 5. Diabetes mellitus. From Infectious Disease point of view, continue supportive care. Continue PT/OT. Aspiration precaution. We will follow.
--- NOTE | 2019-11-22 16:53 | NUR ---
awake, calm interactive 98.8 92 109/57 left gaze preference, right hemineglect, awake, respoinds to examiner nonverbal left spastic paresis tachycardia rhonchus abd soft edena in bue and ble spastic paresis left right increased tone reflexes brisk toes upgoing bilareally does not follow commands a/p dementia w infectious encephalopathy - delirium is improving covid-encephaopathy - covid cloud/ depletion syndrome eeg severe diffuse encephalopathy without seizures (substantial artifact limits read) no acute stroke on imaging discussed case w/ daughter on phone, explained above hx stroke- continue anticoagulation
[2019-11-22] MEDS: ATORVASTATIN 20 MG TAB PEG SCH (21:05)
[2019-11-23] VITALS: BP 129/58
[2019-11-23] MEDS: INSULIN LISPRO 100 UNIT/1 ML 3ML VIAL SQ SCH ×4 (00:03→17:51)
[2019-11-23] MEDS: CEFEPIME 1GM/NS 0.9% 50 ML 50 ML IV SCH ×2 (03:51→12:54)
[2019-11-23 04:00] VITALS: BP 149/88
--- NOTE | 2019-11-23 07:33 | NUR ---
calm and awake. responsive follows some commands 98.3 75 145/91 left gaze preference, right hemineglect, awake, respoinds to examiner nonverbal left spastic paresis tachycardia rhonchus abd soft edena in bue and ble spastic paresis left right increased tone reflexes brisk toes upgoing bilareally does not follow commands a/p dementia w infectious encephalopathy - delirium is improving covid-encephaopathy - covid cloud/ depletion syndrome eeg severe diffuse encephalopathy without seizures (substantial artifact limits read) no acute stroke on imaging discussed case w/ daughter on phone, explained above hx stroke- continue anticoagulation neuro stable, placement in progress
[2019-11-23 08:21] VITALS: BP 149/85
[2019-11-23 08:29] VITALS: BP 149/85
[2019-11-23] MEDS: ALBUTEROL SULF 0.083% NEB SOLN 3 ML NEB NEB PRN ×2 (08:46→19:00)
[2019-11-23] MEDS: ACETYLCYSTEINE 200 MG/ML 4ML VIAL INH SCH ×2 (09:41→19:48)
[2019-11-23] MEDS: PRAMIPEXOLE DIHYDROCHLORIDE 0.25 MG TAB PO SCH ×2 (10:15→17:51)
[2019-11-23] MEDS: COLLAGENASE OINTMENT 30 GM TUBE TP SCH (10:15)
[2019-11-23] MEDS: VALPROATE 250MG/5ML ORAL LIQ 5ml PEG SCH (10:15)
[2019-11-23] MEDS: LEVETIRACETAM ORAL SOLUTION 500 MG/5 ML SOLN PEG SCH (10:15)
[2019-11-23] MEDS: MEMANTINE 10 MG TAB PEG SCH (10:15)
[2019-11-23] MEDS: BALSAM PERU/CASTOR OIL 60 GM OINT...G. TP SCH (10:15)
[2019-11-23] MEDS: APIXABAN 5 MG TABLET PO SCH ×2 (10:15→17:51)
[2019-11-23] MEDS: OMEPRAZOLE 20 MG CAP PEG SCH (10:15)
--- NOTE | 2019-11-23 10:58 | NUR ---
FAXED UPDATES TO FACILITY, PENDING AUTH
[2019-11-23 12:06] VITALS: BP 161/72
--- NOTE | 2019-11-23 13:51 | NUR ---
NURSING HOME FACILITY DISCHARGE INFORMATION PATIENT HAS BEEN ACCEPTED TO: NAME:[facility] ADDRESS:[id number] ACCEPTING [employer]ETING DIRECTOR: UNKNOWN ACCEPTING MD:GILBERT ROOM:12 NURSE CALL REPORT TO: [phone] IMM SIGNED AND OBTAINED (if applicable): IMM THE FOLLOWING DOCUMENTS MUST ACCOMPANY PATIENT FOR TRANSFER: COPIED CHART:PACKET
--- NOTE | 2019-11-23 16:04 | NUR ---
oralia seen and examined chart reviewed events noted discuss medical team medication list reviewed there is no new problems remains confused Ms. Garibay is confused, does not seem to be in acute distress. REVIEW OF SYSTEMS: According to medical team, there is nothing new. OBJECTIVE: VITAL SIGNS: Stable, afebrile. HEENT: Normocephalic. she she is not pale or icteric NECK: Supple. no JVD CHEST: Clear. HEART: S1, S2. ABDOMEN: Soft. Bowel sounds present. EXTREMITIES: No edema. SKIN: No rash.
[2019-11-23 17:14] VITALS: BP 163/68
--- NOTE | 2019-11-23 17:41 | NUR ---
report called to Luc at [facility]. sister in law, Yara, updated on transport.
--- NOTE | 2019-11-23 17:41 | NUR ---
Per Dr. Elmore, no more antibiotics are needed. d/c PICC.
--- NOTE | 2019-11-23 18:51 | Progress Note ---
DATE: SUBJECTIVE: Ms. Garibay remains confused. Does not seem to be in acute distress. PHYSICAL EXAMINATION: VITAL SIGNS: Stable, afebrile. HEENT: She is not icteric. NECK: Supple. CHEST: Clear bilateral. HEART: S1, S2. ABDOMEN: Soft. Bowel sounds present. EXTREMITIES: No edema. SKIN: No rash. LABORATORY DATA: Reviewed. Her culture reviewed. There is really nothing new. IMPRESSION: Aspiration pneumonia. We will discontinue cefepime. Continue supportive care. Aspiration precaution altered mental status, encephalopathy, dementia, debility per neuro. We will follow. MD STEVE Donato/XIMENA /[id number]
--- NOTE | 2019-11-23 18:56 | Progress Note ---
DATE: SUBJECTIVE: The patient is breathing better, however, still confused, not verbal. History of dementia, history of old CVA. PHYSICAL EXAMINATION: VITAL SIGNS: Temperature 98.4, pulse of 76, blood pressure 161/72, respiratory rate of 18, and O2 saturation 97% on 2 L. HEENT: Head atraumatic, normocephalic. Oral mucosa is dry. CHEST: Clear. ABDOMEN: Soft. EXTREMITIES: No edema. LABORATORY DATA: Reviewed. ASSESSMENT/PLAN: Ms. Garibay is a 69-year-old female with dementia. Currently, the respiratory status seems to be stable. Antibiotics per ID recommendation, questionable history old stroke, currently stable. Possible transferred to prison soon. MD AJ Nam/XIMENA /[id number]
--- NOTE | 2019-11-23 21:43 | Progress Note ---
DATE: SUBJECTIVE: The patient came in with aspiration pneumonia, currently in no acute distress, doing well. OBJECTIVE: VITAL SIGNS: Temperature is 98.4, pulse of 71, respirations 19, blood pressure is 161/83, pulse oximetry of 97% on room air. HEENT: Normocephalic and atraumatic. Left gaze. CVS: S1 and S2 normal. Regular rate and rhythm. ABDOMEN: Soft, nontender, nondistended. LUNGS: Decreased air entry. IMAGING STUDIES: None done. MICROBIOLOGY: No growth in blood cultures. ASSESSMENT AND PLAN: Ms. Lucero Garibay with pneumonia. Continue current antibiotic. Can be discharged with stopping antibiotics. Hypertension, continue to monitor the patient. Dementia, hyperlipidemia, diabetes, anemia, and history of cerebrovascular accident, continue current medical management. Okay to be discharged back to detention. Further recommendations per clinical course. We will continue to monitor the patient. The patient still continues to be on full code. Anticoagulation with Eliquis will be continued after discharge. MD JAGJIT Croft/MODL /[id number]
== END 2019-11-23 20:00 | DRG 871 ==
LOC: ER 16:37 → ERHOLD 20:06 → IMCU 21:46 → ICU 11-15 21:48 → UNDODISIN 11-17 17:37 → IMCU 11-17 17:56
PROVIDERS: ADMIT Family Medicine; ATTEND Family Medicine
PROC: 02HV33Z Insertion of Infusion Device into Superior Vena Cava, Percutaneous Approach (ICD-10-PCS; principal; 2019-11-12)
PROC: B548ZZA Ultrasonography of Superior Vena Cava, Guidance (ICD-10-PCS; 2019-11-12)
PROC: 3E043XZ Introduction of Vasopressor into Central Vein, Percutaneous Approach (ICD-10-PCS; 2019-11-13)
DX: A41.9 Sepsis, unspecified organism (principal); J69.0 Pneumonitis due to inhalation of food and vomit; G92 Toxic encephalopathy; R65.21 Severe sepsis with septic shock; E87.3 Alkalosis; N39.0 Urinary tract infection, site not specified; G93.49 Other encephalopathy; I69.354 Hemiplegia and hemiparesis following cerebral infarction affecting left non-dominant side; E11.9 Type 2 diabetes mellitus without complications; F32.9 Major depressive disorder, single episode, unspecified; K21.9 Gastro-esophageal reflux disease without esophagitis; E78.5 Hyperlipidemia, unspecified; G30.0 Alzheimer's disease with early onset; F02.80 Dementia in other diseases classified elsewhere, unspecified severity, without behavioral disturbance, psychotic disturbance, mood disturbance, and anxiety; Z87.440 Personal history of urinary (tract) infections; G40.909 Epilepsy, unspecified, not intractable, without status epilepticus; Z79.01 Long term (current) use of anticoagulants; Z86.19 Personal history of other infectious and parasitic diseases; I48.91 Unspecified atrial fibrillation; Z95.828 Presence of other vascular implants and grafts; Z93.1 Gastrostomy status; R53.81 Other malaise; I11.0 Hypertensive heart disease with heart failure; I50.9 Heart failure, unspecified; I69.398 Other sequelae of cerebral infarction; Z11.59 Encounter for screening for other viral diseases
CPT/HCPCS: 31720; 36415; 36569; 36600; 51700; 70450; 70553; 71045; 71260; 80048; 80053; 81001; 82550; 82553; 82805; 82948; 83540; 83605; 83735; 83880; 84443; 84466; 84484; 85025; 87040; 87086; 93005; 93308; 93971; 94640; 94667; 94668; 94669; 95812; 96372; 97139; 99251; 99285; J0461; J0692; J1885; J1956; J2060; J2543; J3370; J7030; J7050; Q9967; U0002